=== PATIENT | male | born 1965 | race Caucasian/White ===

== ENCOUNTER 2017-06-09 06:54 | Observation (INO) | payer OTHER, SELFPAY ==
[2017-06-09] VITALS (20 sets, daily range): BP systolic 103–140; BP diastolic 61–83; PULSE 65–101; RESP 16–20; TEMP 36.4–37.5; O2SAT 94–100; BMI 28.8; BMI 32.4
--- NOTE | 2017-06-09 07:03 | XR_ITS ---
XR chest 2V HISTORY: ITS.REASON: PALPITATIONS ORDERING PHYSICIAN: Korey Tao MD PATIENT AGE: 52 years COMPARISON: None available FINDINGS: The cardiomediastinal silhouette and pulmonary vascularity are within normal limits. The lungs are clear without infiltrates, suspicious nodules, or pleural effusions. There is wedging of T9 age-indeterminate. Degenerative changes are present in the thoracic spine.. IMPRESSION: Mild wedging of T9 otherwise negative
--- NOTE | 2017-06-09 07:07 | HMH.EDARPALP ---
ED Disposition Clinical Impression: Chest pain Qualifiers: Chest pain type: other chest pain Qualified Code(s): R07.89 - Other chest pain Pneumonia Qualifiers: Pneumonia type: due to unspecified organism Laterality: bilateral Lung location: lower lobe of lung Qualified Code(s): J18.9 - Pneumonia, unspecified organism Disposition: Admitted As Inpatient Condition on Discharge: Good Time of Disposition: 08:06 - Critical Care Critical Care Time: No Attestation: On , the high probability of a clinically significant, sudden or life threatening deterioration of the following system(s) required my full and direct attention, intervention and personal management. The time I documented below is in addition to time spent performing reported procedures but includes the following listed in this critical care notation. Total Critical Care Time: 45 Vital system(s) involved:: Circulatory Failure My critical care processes included: Assessment & monitoring of V/S, Initial and Re-exams, Data Review/Interpretation, Coordinating Care, Medication Orders and management, Documentation Medical Decision Making - Medical Records Medical records reviewed: Yes: I reviewed the patient's medical records. Vital Signs: 06/09/17 06:58 06/09/17 07:46 06/09/17 10:00 Temperature 99.5 F Temperature Source Oral Pulse Rate [Right Radial] 91 H 85 Respiratory Rate 20 16 Blood Pressure [Right Arm] 123/77 Blood Pressure Mean [Right Arm] 92 Blood Pressure Source [Right Arm] Automatic Cuff Blood Pressure Position [Right Arm] Sitting Supine 02 Sat by Pulse Oximetry 95 97 Oxygen Delivery Method Room Air Room Air - Lab Data Lab results reviewed: Yes: I reviewed the patient's lab results. Lab Results 06/09/17 07:07: WBC 7.1, RBC 5.11, Hgb 14.9, Hct 44.3, MCV 86.7, MCH 29.1, MCHC 33.6, RDW 13.5, Plt Count 167, MPV 8.9, Neut % (Auto) 75.0, Lymph % (Auto) 14.7, [place] % (Auto) 7.8, Eos % (Auto) 2.1, Baso % (Auto) 0.4, Neut # (Auto) 5.4, Lymph # (Auto) 1.1, [place] # (Auto) 0.6, Eos # (Auto) 0.2, Baso # (Auto) 0.0 06/09/17 07:07: Sodium 137, Potassium 4.0, Chloride 103, Carbon Dioxide 24, Anion Gap 14.0, BUN 20 H, Creatinine 1.13, Estimated Creat Clear 94, Estimated GFR 68, Est GFR ( Amer) 83, Glucose 105, Calcium 8.4 L, Total Bilirubin 0.4, AST 33, ALT 69, Alkaline Phosphatase 81, Total Creatine Kinase 201, CK-MB (CK-2) 1.0, CK-MB (CK-2) Rel Index 0.5, Troponin I 0.08 H, Total Protein 7.4, Albumin 3.6, Globulin 3.8 H, Albumin/Globulin Ratio 0.9 L 06/09/17 07:07: D-Dimer 1070 H* 06/09/17 07:07: B-Natriuretic Peptide 9 06/09/17 07:10: Influenza Type A Ag Negative, Influenza Type B Ag Negative Result diagrams: 06/09/17 07:07 06/09/17 07:07 Orders (Tests/Meds): ED MEDICATIONS Generic Name Dose Route Start Last Admin Trade Name Freq PRN Reason Stop Dose Admin Azithromycin 500 mg/ Sodium 250 mls @ 250 mls/hr 06/09/17 09:00 06/09/17 10:59 Chloride IV 06/23/17 08:59 Not Given Q24H MINI Protocol Ceftriaxone Sodium 1 gm/ 50 mls @ 100 mls/hr 06/10/17 09:00 Sodium Chloride IV 06/24/17 08:59 Q24H MINI Ibuprofen 600 mg 06/09/17 13:32 Motrin 600mg Tablet PO 07/09/17 13:31 Q6HP PRN Mild to Moderate Pain Discontinued Medications Generic Name Dose Route Start Last Admin Trade Name Freq PRN Reason Stop Dose Admin Sodium Chloride 500 mls @ 999 mls/hr 06/09/17 08:45 Sod Chlor 0.9% 1000ml Bag IV 06/09/17 09:15 .Q31M MINI Sodium Chloride 1,000 mls @ 999 mls/hr 06/09/17 08:45 06/09/17 08:41 Sod Chlor 0.9% 1000ml Bag IV 06/09/17 09:45 999 mls/hr .Q1H1M MINI Administration Sodium Chloride 1,000 mls @ 999 mls/hr 06/09/17 09:12 06/09/17 10:07 Sod Chlor 0.9% 1000ml Bag IV 06/09/17 09:45 999 mls/hr .Q1H1M MINI Administration Azithromycin 500 mg/ Sodium 250 mls @ 250 mls/hr 06/09/17 09:51 06/09/17 10:50 Chloride IV 06/09/17 09:52 250 mls/hr ONCE ONE Ad
[2017-06-09 07:17] LABS: Basophils % 0.4 % (0.1-2.0); Eosinophils # 0.2 K/mm3 (0.0-0.4); Eosinophils % 2.1 % (0.1-12.0); Hematocrit 44.3 % (42.0-52.0); Hemoglobin 14.9 g/dL (14.1-18.0); Lymphocytes # 1.1 K/mm3 (0.7-4.5); Lymphocytes % 14.7 K/mm3 (10-50); Mean Corpuscular HGB Conc 33.6 g/dL (31.8-35.4); Mean Corpuscular Hemoglobin 29.1 pg (27.0-31.2); Mean Corpuscular Volume 86.7 fl (80-94); Mean Platelet Volume 8.9 fl (7.4-10.4); Monocytes # 0.6 K/mm3 (0.1-1.0); Monocytes % 7.8 % (1.7-9.3); Neutrophils # 5.4 K/mm3 (1.8-7.8); Platelet Count 167 K/mm3 (142-424); Red Blood Count 5.11 M/mm3 (4.60-6.20); Red Cell Distribution Width 13.5 % (11.5-17.5); White Blood Count 7.1 K/mm3 (4.8-10.8)
[2017-06-09 07:39] LABS: Alanine Aminotransferase 69 U/L (12-78); Albumin Level 3.6 gm/dL (3.4-5.0); Albumin/Globulin Ratio 0.9 (1.1-1.8); Alkaline Phosphatase 81 U/L (46-116); Aspartate Amino Transferase 33 U/L (15-37); Bilirubin,Total 0.4 mg/dL (0.2-1.0); Blood Urea Nitrogen 20 mg/dL (7-18); CKMB Relative Index 0.5 U/L (0-4.0); Calcium 8.4 mg/dL (8.5-10.1); Carbon Dioxide 24 mmol/L (21.0-32.0); Chloride 103 mmol/L (98-107); Creatine Kinase 201 U/L (39-308); Creatinine Clearance Estimated 94 mL/min (0-300); Creatinine,Serum 1.13 mg/dL (0.70-1.30); Estimated Glomerular Filt Rate 68 ml/min (>60); GFR (African American) 83 ML/MIN (>60); Globulin 3.8 gm/dl (1.3-3.2); Glucose 105 mg/dL (74-106); Sodium 137 mmol/L (136-145); Total Protein,Serum 7.4 gm/dL (6.4-8.2); Troponin I 0.08 ng/ml (0.00-0.06)
--- NOTE | 2017-06-09 08:08 | CA_ITS ---
PROCEDURE: 2-D M-mode and color Doppler study INDICATIONS FOR THE TEST: Chest pain X COPD Heart Murmur Tobacco SmokingX Palpitations FatigueX Syncope Edema Hypertension Diabetes Mellitus Rheumatic Fever SOB [place] Obesity Hyperlipidemia Family History HDX Additional History PATIENT INFORMATION HEIGHT: 68 WEIGHT:190 GENDER: Male B/P:123/77 2-D/M-MODE INTERPRETATION: 2-D MEASUREMENTS OBSERVED VALUES IN CMS Right Ventricular Dimension (RVDd) 2.6 Interventricular Septum (Thickness)(IVsd) .8 Left Ventricular Internal Dimensions(LVIDd) 5.7 Left Ventricular Posterior Wall (Thickness)(LVPWd) .6 Aortic Root 3.4 Aortic Cusp Separation Left Atrial Dimensions (LAD) 3.0 2D 1. Left atrium is mildly enlarged, left ventricle is normal size, there is preserved left ventricular systolic function, visually estimated ejection fraction 55% with no obvious regional wall motion abnormality. 2. The right atrium and right ventricle are mildly enlarged with normal contractility. 3. The aortic valve is minimally thickened and fibrosed. 4. The mitral and tricuspid valve leaflets are minimally thickened. 5. The pulmonic valve is poorly visualized. 6. No significant pericardial effusion noted. DOPPLER INTERROGATION: Doppler interrogation of the aortic, mitral and tricuspid valvular presence of mild mitral and tricuspid regurgitation, tricuspid and jet velocity is insufficient for calculation of the right ventricular systolic pressure, diastolic parameters are inconclusive. CONCLUSION: 1. Normal left ventricular size, preserved left ventricular systolic function, visually estimated ejection fraction 55% with no signal wall motion abnormality, diastolic parameters are inconclusive. 2. Mildly enlarged right atrium and right ventricle, contractility of the right ventricle is normal. 3. Mild mitral and tricuspid regurgitation 4. No significant pericardial effusion noted.
[2017-06-09 08:33] LABS: D-Dimer 1070 (0-400)
--- NOTE | 2017-06-09 08:57 | CT_ITS ---
CT angio chest HISTORY: Chest tightness with elevated d-dimer and weakness, palpitations ITS.REASON: ELEVATED D-DIMER PALPITATIONS, WEAKNESS ORDERING PHYSICIAN: Jaron Argueta MD PATIENT AGE: 52 years TECHNIQUE: Axial images obtained following the administration of 75 mL of Isovue 370 . Sagittal, and coronal reformatted images are also generated and reviewed. COMPARISON: None FINDINGS: No evidence of pulmonary embolus, aortic aneurysm, or aortic dissection. No mediastinal or hilar mass evident. There are a few small mediastinal lymph nodes are nonspecific. The heart size is unremarkable. No evidence of pericardial effusion. A 3 mm noncalcified nodule present in the central aspect of the right upper lobe and a 4 mm noncalcified nodule present in the right upper lobe laterally. 3 mm noncalcified nodule involves the subpleural region of the right middle lobe. Patchy atelectasis or infiltrate is noted in superior segment of the right lower lobe. A 6 millimeter nodule is present within the right lower lobe adjacent to the major fissure. Dependent changes are present in the lung bases. Patchy area of infiltrate is noted in the left lower lobe laterally. No effusions are evident. There are degenerative changes in the thoracic spine with mild wedging involving T8 which appears chronic. IMPRESSION: 1. No evidence of pulmonary embolus or aortic aneurysm. 2. Patchy areas of atelectasis or infiltrate in the superior segment of the right lower lobe and in the lateral aspect of the left lower lobe. 3. At least 4 pulmonary nodules on the right the largest is 6 mm. Recommend 6 month follow-up to confirm stability
--- NOTE | 2017-06-09 10:11 | PC.NURSE ---
REPORT CALLED TO SERJIO FRANKS RN
[2017-06-09 10:36] LABS: Lactic Acid 0.6 mmol/L (0.4-2.0)
[2017-06-09 11:01] LABS: CKMB Relative Index 0.4 U/L (0-4.0); Creatine Kinase 175 U/L (39-308); Creatine Kinase MB 0.7 mg/ml (0.0-3.6); Troponin I 0.07 ng/ml (0.00-0.06)
--- NOTE | 2017-06-09 12:40 | HMH.CNCARD ---
History of Present Illness Consult date: 06/09/17 Requesting physician: Jaron Argueta Consult reason: chest pain, shortness of breath Chief complaint: SOA, chest ache Additional Medical History:: 1. Tobacco use 2. History of present illness: 52-year-old white male seen in the emergency department for 2 day history of shortness of breath with exertion with some associated chest ache. Symptoms of chest aching would last seconds and seemed to come on with stretching. Shortness of breath was occurring with activity while putting up vinyl siding on building this weekend. Symptoms would resolve with rest. Patient has noted increase in fatigue over the last 2-3 days with increased need for sleep. She denies any history of hypertension, hyperlipidemia or diabetes. There is a family history of heart disease and a sibling in his late 40s early 50s. Patient does have a history of tobacco use. EKG shows poor R-wave progression in the septal leads. Initial troponin is mildly elevated at 0.08. Cardiology consulted for evaluation recommendations. [facility] History Medical History: Denies:: Cancer, Diabetes Mellitus Type 1, Diabetes Mellitus Type 2, MRSA Other Surgeries: Yes: Appendectomy, Other (Gallbladder, plate in head left side) Amputation: No Fractures: No - *Social History Educational Level: Completed High School Smoking Status: Current every day smoker Tobacco Type: cigarettes # Packs/Day (cigarettes): 1 Alcohol Intake: never Alcohol Intake Frequency:: holidays/special occasions only Occupational Status: employed - Psychiatric History Expresses thoughts of harming self/others: None Suicide Plan Description: No Plan *Family Hx:: Heart Attack, Hypertension Meds Home Medications Medication Instructions Recorded Confirmed Type Cyanocobalamin/Folic Acid [B-12 1 each SL DAILY 06/09/17 06/09/17 History 1,000 Mcg Sub Tablet] Multivitamin [Multi-Day Vitamins] 1 each PO DAILY 06/09/17 06/09/17 History [place]-3S/Dha/Epa/Fish Oil/D3 [Fish 1 each PO DAILY 06/09/17 06/09/17 History Oil + D3 Softgel] Allergies Allergy/AdvReac Type Severity Reaction Status Date / Time No Known Allergies Allergy Verified 06/09/17 07:02 Review of Systems - *Cardiovascular Reports chest pain - *Respiratory Reports shortness of breath with activity - *Gastrointestinal Denies abdominal pain - *Musculoskeletal Denies joint pain - *Neurologic Denies seizure-like activity Exam Vital signs and Labs for Last 24 Hours: Temp Pulse Resp BP Pulse Ox 98.2 F 82 18 126/83 97 06/09/17 11:43 06/09/17 11:43 06/09/17 11:43 06/09/17 11:43 06/09/17 11:43 Laboratory Results - last 24 hr 06/09/17 10:05: Lactic Acid 0.6 06/09/17 10:28: Total Creatine Kinase 175, CK-MB (CK-2) 0.7 D, CK-MB (CK-2) Rel Index 0.4, Troponin I 0.07 H I & O for Last 24 hours: Intake & Output 06/07/17 06/08/17 06/09/17 06/10/17 11:59 11:59 11:59 11:59 Intake Total 1000 / 1000 Balance 1000 / 1000 Weight 219 lb 9.286 oz - *Routine Neck Exam Present: supple. Absent: JVD, carotid bruit - *Routine Respiratory Exam Present: CTA bilaterally - *Routine Cardiovascular Exam Present: RRR. Absent: murmur, gallop - *Routine Abdominal Exam Present: soft. Absent: tenderness - *Routine Extremities Exam Absent: edema - *Routine Neurological Exam Present: alert, oriented X3, moving all extremities Assessment and Plan (1) Shortness of breath Current visit: Yes Status: Acute Category: Medical Code(s): R06.02 - Shortness of breath (2) Tobacco use Current visit: Yes Status: Acute Category: Social Hx Code(s): Z72.0 - Tobacco use (3) Abnormal EKG Current visit: Yes Status: Acute Category: Medical Code(s): R94.31 - Abnormal electrocardiogram [ECG] [EKG] (4) Elevated troponin I measurement Current visit: Yes Status: Acute Category: Medical Code(s): R74.8 - Abnormal levels of other
--- NOTE | 2017-06-09 17:21 | HMH.HP ---
*Admission Date: 06/09/17 *Chief complaint: chest pain *History of present illness: this wm with chest pain and seen in the ed -his is a 52-year-old male patient presenting to emergency room with generalized weakness, body aches, chest pressure triggered by exercise and subjective fever over the weekend. Patient describes the chest pressure is triggered by activity, associated with shortness of breath and palpitations. He is a smoker, family history of coronary artery disease. Denies any sore throat, denies any congestion. The chest discomfort does not radiate.pt was seen by [id number] white male seen in the emergency department for 2 day history of shortness of breath with exertion with some associated chest ache. Symptoms of chest aching would last seconds and seemed to come on with stretching. Shortness of breath was occurring with activity while putting up vinyl siding on building this weekend. Symptoms would resolve with rest. Patient has noted increase in fatigue over the last 2-3 days with increased need for sleep. She denies any history of hypertension, hyperlipidemia or diabetes. There is a family history of heart disease and a sibling in his late 40s early 50s. Patient does have a history of tobacco use. EKG shows poor R-wave progression in the septal leads. Initial troponin is mildly elevated at 0.08. Cardiology consulted for evaluation recommendations. [facility] History I have reviewed the patient's past medical history: Yes Medical History: Denies:: Cancer, Diabetes Mellitus Type 1, Diabetes Mellitus Type 2, MRSA Other Surgeries: Yes: Appendectomy, Other (Gallbladder, plate in head left side) Amputation: No Fractures: No - *Social History Educational Level: Completed High School Smoking Status: Current every day smoker Tobacco Type: cigarettes # Packs/Day (cigarettes): 1 Alcohol Intake: never Alcohol Intake Frequency:: holidays/special occasions only Occupational Status: employed - Psychiatric History Expresses thoughts of harming self/others: None Suicide Plan Description: No Plan *Family Hx:: Heart Attack, Hypertension Review of Systems - Review of Systems Review of systems:: pertinent systems reviewed and negative unless documented below - Constitutional Denies fever(s) - Eyes Denies change in vision - ENT Denies facial pain - *Cardiovascular Reports chest pain at rest, Reports chest pain with activity, Reports shortness of breath - *Respiratory Denies cough - *Gastrointestinal Denies abdominal pain - *Genitourinary Denies blood in urine - *Musculoskeletal Denies joint pain - Integumentary/Breasts Denies rash - *Neurologic Denies seizure-like activity, Denies dizziness - Psychiatric Denies anxiety Meds Home Medications Medication Instructions Recorded Confirmed Type Cyanocobalamin/Folic Acid [B-12 1 each SL DAILY 06/09/17 06/09/17 History 1,000 Mcg Sub Tablet] Multivitamin [Multi-Day Vitamins] 1 each PO DAILY 06/09/17 06/09/17 History [place]-3S/Dha/Epa/Fish Oil/D3 [Fish 1 each PO DAILY 06/09/17 06/09/17 History Oil + D3 Softgel] Allergies Allergy/AdvReac Type Severity Reaction Status Date / Time No Known Allergies Allergy Verified 06/09/17 07:02 Exam Vital signs and Labs for Last 24 Hours: Temp Pulse Resp BP Pulse Ox 98.1 F 80 16 124/64 96 06/09/17 14:41 06/09/17 14:41 06/09/17 14:41 06/09/17 14:41 06/09/17 14:41 Laboratory Results - last 24 hr 06/09/17 10:05: Lactic Acid 0.6 06/09/17 10:28: Total Creatine Kinase 175, CK-MB (CK-2) 0.7 D, CK-MB (CK-2) Rel Index 0.4, Troponin I 0.07 H I & O for Last 24 hours: Intake & Output 06/07/17 06/08/17 06/09/17 06/10/17 11:59 11:59 11:59 11:59 Intake Total 1000 / 1000 240 / 240 Balance 1000 / 1000 240 / 240 Weight 219 lb 9.286 oz - Constitutional no acute distress - *Routine HEENT Exam Head: Present: normocephalic Eye: Present: EOMI, PERRL. A
[2017-06-10] VITALS (12 sets, daily range): BP systolic 89–118; BP diastolic 52–71; PULSE 69–105; RESP 16–20; TEMP 36.7–36.8; O2SAT 92–97
--- NOTE | 2017-06-10 | IR_ITS ---
CARDIAC CATHETERIZATION DATE OF CATHETERIZATION:06/10/2017 7:55 AM PROCEDURES: 1. Left heart catheterization 2. Left ventriculogram 3. Selective coronary angiogram INDICATION FOR TEST: 1. Elevated troponin/acute coronary syndrome 2. Risk factors for coronary artery disease Informed consent was obtained prior to the procedure. COMPLICATIONS: None ESTIMATED BLOOD LOSS: Less than 10 ml. TECHNIQUE: One percent lidocaine used to anesthetize the right anterior aspect of the wrist. The right radial artery was accessed via the Seldinger technique. A 6 Bengali sheath was placed in the right radial artery. 2.5 mg of verapamil, 800 mcg of nitroglycerin and 5000 U Heparin were given through the arterial sheath. The trap catheter was also used to perform left heart catheterization and left ventriculography. At the end of the procedure the patient was transferred to the post-op holding area in stable condition for arterial sheath removal. ANGIOGRAPHIC RESULTS: 1. The left main artery normal 2. The left anterior descending artery normal 3. The circumflex artery dominant and normal 4. The right coronary artery small nondominant normal 5. The GROSS ventriculogram reveals normal 65% 6. The left ventricular end-diastolic pressure mildly elevated 20 mmHg IMPRESSION: 1. Normal coronary arteries 2. Normal ejection fraction 3. Mildly elevated LVEDP PLAN: 1. Evaluation noncardiac chest pain 2. Risk factor modification 3. Medical management
--- NOTE | 2017-06-10 02:52 | PC.NURSE ---
Pt has denied pain and SOA this shift. NSR noted on athletic monitor. Lung sounds clear. BS active in all 4 qauds. Pt has rested well with no complaints. VSS. No acute distress noted. Will continue to monitor.
--- NOTE | 2017-06-10 07:27 | PC.NURSE ---
REPORT GIVEN TO Evin OVERTON RN
--- NOTE | 2017-06-10 10:25 | P.CONPHA_ITS ---
[facility] Pharmacy VTE Monitoring - Patient Demographics Admission date: 06/09/17 Report Date: 06/10/17 Time: 10:25 Allergies/Adverse Reactions: Patient Allergies No Known Allergies Allergy (Verified 06/09/17 07:02) Height: 1.75 m Weight: 99.6 kg Patient Problems: Current Active Problems Chest pain (Acute) Pneumonia (Acute) Shortness of breath (Acute) Tobacco use (Acute) Abnormal EKG (Acute) Elevated troponin I measurement (Acute) - VTE Risk Labs: VTE Related Lab Results Hgb 14.9 g/dL (14.1-18.0) 06/09/17 07:07 Hct 44.3 % (42.0-52.0) 06/09/17 07:07 Plt Count 167 K/mm3 (142-424) 06/09/17 07:07 BUN 20 mg/dL (7-18) H 06/09/17 07:07 Creatinine 1.13 mg/dL (0.70-1.30) 06/09/17 07:07 Estimated Creat Clear 94 mL/min (0-300) 06/09/17 07:07 VTE Score: 2 - Prophylaxis VTE Prophylaxis Ordered?: Yes Types of VTE Prophylaxis: TEDS Knee High Location of Applied Device: Bilateral Lower Extremeties - VTE Diagnosis Confirmed Treatment or plan recommended: Continue Current Treatment
--- NOTE | 2017-06-10 14:22 | HMH.DCSUM ---
General - General Admission date: 06/09/17 Discharge date: 06/10/17 HPI HPI: this wm with chest pain and seen in the ed -his is a 52-year-old male patient presenting to emergency room with generalized weakness, body aches, chest pressure triggered by exercise and subjective fever over the weekend. Patient describes the chest pressure is triggered by activity, associated with shortness of breath and palpitations. He is a smoker, family history of coronary artery disease. Denies any sore throat, denies any congestion. The chest discomfort does not radiate.pt was seen by [id number] white male seen in the emergency department for 2 day history of shortness of breath with exertion with some associated chest ache. Symptoms of chest aching would last seconds and seemed to come on with stretching. Shortness of breath was occurring with activity while putting up vinyl siding on building this weekend. Symptoms would resolve with rest. Patient has noted increase in fatigue over the last 2-3 days with increased need for sleep. She denies any history of hypertension, hyperlipidemia or diabetes. There is a family history of heart disease and a sibling in his late 40s early 50s. Patient does have a history of tobacco use. EKG shows poor R-wave progression in the septal leads. Initial troponin is mildly elevated at 0.08. Cardiology consulted for evaluation recommendations. Hospital Course Hospital Course: CTA:IMPRESSION: 1. No evidence of pulmonary embolus or aortic aneurysm. 2. Patchy areas of atelectasis or infiltrate in the superior segment of the right lower lobe and in the lateral aspect of the left lower lobe. 3. At least 4 pulmonary nodules on the right the largest is 6 mm. Recommend 6 month follow-up to confirm stability cath report: ANGIOGRAPHIC RESULTS: 1. The left main artery normal 2. The left anterior descending artery normal 3. The circumflex artery dominant and normal 4. The right coronary artery small nondominant normal 5. The GROSS ventriculogram reveals normal 65% 6. The left ventricular end-diastolic pressure mildly elevated 20 mmHg IMPRESSION: 1. Normal coronary arteries 2. Normal ejection fraction 3. Mildly elevated LVEDP PLAN: 1. Evaluation noncardiac chest pain 2. Risk factor modification 3. Medical management pt will follow up in office next week. Objective Vital signs: Temp Pulse Resp BP Pulse Ox 98.1 F 69 20 102/64 96 06/10/17 10:00 06/10/17 10:00 06/10/17 10:00 06/10/17 10:00 06/10/17 10:00 no acute distress - *Routine HEENT Exam Head: Present: normocephalic Eye: Present: PERRL ENT: Present: mucous membranes moist - *Routine Neck Exam Present: full ROM - *Routine Respiratory Exam Present: CTA bilaterally - *Routine Cardiovascular Exam Present: RRR - *Routine Abdominal Exam Present: soft, normoactive bowel sounds - *Routine Extremities Exam Present: full ROM Comments: pressure device to rt wrist - *Routine Neurological Exam Present: alert, oriented X3, CN II-XII intact - Routine Psychiatric Exam Present: normal affect, normal thought process Discharge Plan - Patient Discharge Instructions ACTIVITY: Continue current activity DIET: continue same diet Patient Instructions: How to Quit Smoking, Smoking Cessation Associated with Decreases Risk of Complications After Prakash - Follow up Plan Follow up with: Felipe Puga MD [Staff Physician] - 1 week Disposition: Home, Self-Usp Medications: Home Medications Medication Instructions Recorded Confirmed Type Cyanocobalamin/Folic Acid [B-12 1 each PO DAILY 06/09/17 06/10/17 History 1,000 Mcg Sub Tablet] Multivitamin [Multi-Day Vitamins] 1 each PO DAILY 06/09/17 06/09/17 History [place]-3S/Dha/Epa/Fish Oil/D3 [Fish 1 each PO DAILY 06/09/17 06/09/17 History Oil + D3 Softgel] Prescriptions/Medication Reconciliation: Continue [place]-3S/Dha/Epa
--- NOTE | 2017-06-10 14:57 | P.PCN_ITS ---
[facility] Pacemaker - Pacemaker Placement Complications:: None Technique:: 1% Lidocaine with epinephrine used to anesthetize the left anterior aspect of the chest.Scalpel was used to make the initial cutaneous incision while electrocautery was used to dissect down into the fascia. The fascia was lifted off the pectoralis muscle and digitally manipulated creating a pocket for the pacemaker. The patient was then placed in Trendelenburg position and the subclavian vein was accessed via the Selinger technique. A 7 Burkinan sheath was placed under fluoroscopic guidance into the subclavian vein. Following this, an additional wire was placed into the sheath. Now, with two wires inside the 7 Burkinan sheath, this sheath was removed, maintaining the two wires in the subclavian vein. The sheath and dilator was then placed over one of the wires while keeping the other wire in place within the subclavian vein. The dilator was removed from the sheath. Using fluoroscopic guidance, the ventricular lead was placed into the right ventricular apex, screwed and secured into place. Electronic interrogation proved acceptable thresholds and voltage within the lead. Using 3-0 silk, the ventricular lead was then secured into place. Lead was secured to the fascia using the 3-0 silk. Following this, the sheath was pealed away. An additional 7 Burkinan fresh sheath and dilator was placed over the existing wire. Using fluoroscopic guidance, the atrial lead was then placed into the right atrial appendage and screwed and secured in place. Electrical interrogation demonstrated acceptable thresholds and voltage numbers. The atrial lead was then secured into place using 3-0 silk and then the lead was finally secured to the fascia. With both the atria and ventricular leads in place with acceptable thresholds and sensitivity, the atrial and ventricular leads were placed into the pacemaker generator. Pacemaker generator was then secured to the fascia using 3-0 silk. 1 gram of Ancef was used to flush the pocket. Following the pacemaker being secured to the fascia and in place, Monocryl was used to close the subcutaneous layers while mary ann were used to close the cutaneous layer. A pressure dressing was placed and the patient was transferred to the postop holding area in stable condition for postoperative care.
--- NOTE | 2017-06-19 09:47 | P.CONS_ITS ---
History of Present Illness Consult date: 06/09/17 Requesting physician: Jaron Argueta Consult reason: chest pain, shortness of breath Chief complaint: SOA, chest ache Additional Medical History:: 1. Tobacco use 2. History of present illness: 52-year-old white male seen in the emergency department for 2 day history of shortness of breath with exertion with some associated chest ache. Symptoms of chest aching would last seconds and seemed to come on with stretching. Shortness of breath was occurring with activity while putting up vinyl siding on building this weekend. Symptoms would resolve with rest. Patient has noted increase in fatigue over the last 2-3 days with increased need for sleep. She denies any history of hypertension, hyperlipidemia or diabetes. There is a family history of heart disease and a sibling in his late 40s early 50s. Patient does have a history of tobacco use. EKG shows poor R-wave progression in the septal leads. Initial troponin is mildly elevated at 0.08. Cardiology consulted for evaluation recommendations. [facility] History Medical History: Denies:: Cancer, Diabetes Mellitus Type 1, Diabetes Mellitus Type 2, MRSA Other Surgeries: Yes: Appendectomy, Other (Gallbladder, plate in head left side) Amputation: No Fractures: No - *Social History Educational Level: Completed High School Smoking Status: Current every day smoker Tobacco Type: cigarettes # Packs/Day (cigarettes): 1 Alcohol Intake: never Alcohol Intake Frequency:: holidays/special occasions only Occupational Status: employed - Psychiatric History Expresses thoughts of harming self/others: None Suicide Plan Description: No Plan *Family Hx:: Heart Attack, Hypertension Meds Home Medications Medication Instructions Recorded Confirmed Type Cyanocobalamin/Folic Acid [B-12 1 each SL DAILY 06/09/17 06/09/17 History 1,000 Mcg Sub Tablet] Multivitamin [Multi-Day Vitamins] 1 each PO DAILY 06/09/17 06/09/17 History [place]-3S/Dha/Epa/Fish Oil/D3 [Fish 1 each PO DAILY 06/09/17 06/09/17 History Oil + D3 Softgel] Allergies Allergy/AdvReac Type Severity Reaction Status Date / Time No Known Allergies Allergy Verified 06/09/17 07:02 Review of Systems - *Cardiovascular Reports chest pain - *Respiratory Reports shortness of breath with activity - *Gastrointestinal Denies abdominal pain - *Musculoskeletal Denies joint pain - *Neurologic Denies seizure-like activity Exam Vital signs and Labs for Last 24 Hours: Temp Pulse Resp BP Pulse Ox 98.2 F 82 18 126/83 97 06/09/17 11:43 06/09/17 11:43 06/09/17 11:43 06/09/17 11:43 06/09/17 11:43 Laboratory Results - last 24 hr 06/09/17 10:05: Lactic Acid 0.6 06/09/17 10:28: Total Creatine Kinase 175, CK-MB (CK-2) 0.7 D, CK-MB (CK-2) Rel Index 0.4, Troponin I 0.07 H I & O for Last 24 hours: Intake & Output 06/07/17 06/08/17 06/09/17 06/10/17 11:59 11:59 11:59 11:59 Intake Total 1000 / 1000 Balance 1000 / 1000 Weight 219 lb 9.286 oz - *Routine Neck Exam Present: supple. Absent: JVD, carotid bruit - *Routine Respiratory Exam Present: CTA bilaterally - *Routine Cardiovascular Exam Present: RRR. Absent: murmur, gallop - *Routine Abdominal Exam Present: soft. Absent: tenderness - *Routine Extremities Exam Abse
== END 2017-06-10 15:15 | disposition home or self-care (01) ==
LOC: 2ND 10:51 → ER 10:51
PROVIDERS: Internal Medicine; Admitting Provider Emergency Medicine; Emergency Provider Emergency Medicine; Family Provider Physician Assistant; PCP Physician Assistant; Visit Provider Emergency Medicine
DX: R07.9 Chest pain, unspecified (principal); Z72.0 Tobacco use; R06.09 Other forms of dyspnea; Z82.49 Family history of ischemic heart disease and other diseases of the circulatory system; J18.9 Pneumonia, unspecified organism
CPT/HCPCS: 36415; 71046; 71275; 80053; 82550; 82553; 83605; 83880; 84484; 85025; 85378; 87040; 87275; 87276; 93005; 93306; 93458; 96365; 99152; 99284; C1725; C1769; G0378; J0456; J1644; Q9967

== ENCOUNTER → 2017-07-07 14:42 | Outpatient (CLI) | payer OTHER, SELFPAY ==
--- NOTE | 2017-07-07 14:46 | CT_ITS ---
CT chest wo con COMPARISON: CT angiogram of chest 06/09/2017 HISTORY: Possible pulmonary nodules TECHNIQUE: Multiaxial scans obtained from thoracic inlet the hemidiaphragms and were performed without IV contrast. Sagittal coronal reformats were evaluated as well. FINDINGS: There is a tiny 2 to 3 mm noncalcified nodule subpleural location anterior segment right upper lobe. There is a 5 to 6 mm noncalcified nodule right lower lobe adjacent to the major fissure. There is a calcified granuloma right lower lobe. The previously noted areas of infiltrate or atelectasis and resolved though there is minimal passive congestion remaining in right posterior gutter. There is no pleural fluid. Cardiac size is normal and is no abnormal superior mediastinal or hilar lymphadenopathy. IMPRESSION: Stable tiny noncalcified pulmonary nodules, likely evolving granulomas. Suggest a follow-up CT scan chest noncontrast in 6 months to evaluate for interval stability or change
== END ==
PROVIDERS: Family Provider Physician Assistant; PCP Emergency Medicine; Visit Provider Emergency Medicine
DX: R91.1 Solitary pulmonary nodule (principal)
CPT/HCPCS: 71250

== ENCOUNTER → 2017-09-29 14:30 | Outpatient (CLI) | payer OTHER, SELFPAY ==
--- NOTE | 2017-09-29 14:33 | XR_ITS ---
XR chest 2V HISTORY: ITS.REASON: cough ORDERING PHYSICIAN: Tamiko Acevedo PATIENT AGE: 52 years COMPARISON: PA and lateral chest 06/09/2017 FINDINGS: The cardiomediastinal silhouette and pulmonary vascularity are within normal limits. The lungs are clear without infiltrates, suspicious nodules, or pleural effusions. No acute bony abnormalities. There are mild degenerative changes mid thoracic spine. IMPRESSION: Negative chest, no acute finding
== END ==
PROVIDERS: Visit Provider Nurse Practitioner Family
DX: R05 Cough (principal)
CPT/HCPCS: 71046

== ENCOUNTER → 2018-01-26 12:08 | Outpatient (CLI) | payer OTHER, SELFPAY ==
--- NOTE | 2018-01-26 12:12 | XR_ITS ---
XR chest 2V HISTORY: Chest congestion, smoker ITS.REASON: cough ORDERING PHYSICIAN: Tamiko Acevedo PATIENT AGE: 53 years COMPARISON: 09/29/2018 FINDINGS: The cardiomediastinal silhouette and pulmonary vascularity are within normal limits. The lungs are clear without infiltrates, suspicious nodules, or pleural effusions. No acute bony abnormalities. There are mild degenerative changes in the thoracic spine with mild wedging T7 which appears chronic. IMPRESSION: No acute finding
== END ==
PROVIDERS: PCP Nurse Practitioner Family; Visit Provider Nurse Practitioner Family
DX: R05 Cough (principal)
CPT/HCPCS: 71046

== ENCOUNTER 2018-03-20 13:44 | Outpatient (CLI) | payer SELFPAY | END 2018-03-20 14:49 | disposition home or self-care (01) | PROVIDERS: Visit Provider Nurse Practitioner Family | DX: Z02.4 Encounter for examination for driving license (principal) ==

== ENCOUNTER → 2018-06-05 08:21 | Outpatient (CLI) | payer OTHER, SELFPAY ==
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
== END ==
PROVIDERS: PCP Emergency Medicine; Visit Provider Nurse Practitioner Family
DX: M54.5 Low back pain (principal)
CPT/HCPCS: 72148; 76376

== ENCOUNTER 2018-08-13 08:00 | Outpatient (RCR) | payer OTHER, SELFPAY | END 2018-08-13 08:05 | disposition home or self-care (01) | LOC: PT 08:00 | PROVIDERS: Visit Provider Orthopaedic Surgery Adult Reconstructive Orthopaedic Surgery | DX: M54.5 Low back pain (principal) | CPT/HCPCS: 97010; 97012; 97014; 97035; 97110; 97163; G0283 ==

== ENCOUNTER → 2019-02-08 17:07 | Outpatient (CLI) | payer OTHER, SELFPAY ==
[2019-02-08 17:54] LABS: Basophils % 0.6 % (0.1-2.0); Eosinophils # 0.2 K/mm3 (0.0-0.4); Eosinophils % 2.5 % (0.1-12.0); Hematocrit 45.7 % (42.0-52.0); Lymphocytes # 1.6 K/mm3 (0.7-4.5); Lymphocytes % 23.7 % (10-50); Mean Corpuscular HGB Conc 32.8 g/dL (31.8-35.4); Mean Corpuscular Hemoglobin 30.1 pg (27.0-31.2); Mean Corpuscular Volume 91.8 fl (80-94); Mean Platelet Volume 10.5 fl (7.4-10.4); Monocytes # 0.4 K/mm3 (0.1-1.0); Monocytes % 6.5 % (1.7-9.3); Neutrophils # 4.5 K/mm3 (1.8-7.8); Neutrophils % 66.7 % (37.0-80.0); Platelet Count 185 K/mm3 (142-424); Red Blood Count 4.98 M/mm3 (4.60-6.20); Red Cell Distribution Width 13.5 % (11.5-17.5); White Blood Count 6.8 K/mm3 (4.8-10.8)
[2019-02-08 18:13] LABS: Alanine Aminotransferase 50 U/L (12-78); Albumin Level 3.9 gm/dL (3.4-5.0); Albumin/Globulin Ratio 1.1 (1.1-1.8); Alkaline Phosphatase 62 U/L (46-116); Anion Gap 17.1 mEq/L (5-15); Aspartate Amino Transferase 22 U/L (15-37); Bilirubin,Total 0.3 mg/dL (0.2-1.0); Blood Urea Nitrogen 18 mg/dL (7-18); Calcium 9.1 mg/dL (8.5-10.1); Carbon Dioxide 24 mmol/L (21.0-32.0); Chloride 104 mmol/L (98-107); Chol/HDL Ratio 5.9 (1-3.5); Cholesterol 207 mg/dL (140-200); Creatinine,Serum 1.32 mg/dL (0.70-1.30); Estimated Glomerular Filt Rate 57 ml/min (>60); GFR (African American) 69 ML/MIN (>60); Globulin 3.4 gm/dl (1.3-3.2); Glucose 133 mg/dL (74-106); HDL Cholesterol 35 mg/dL (27-67); LDL Cholesterol 93 mg/dL (0-130); Potassium 4.1 mmoL/L (3.5-5.1); Sodium 141 mmol/L (136-145); T4 (Thyroxine) 6.9 ug/dl (4.7-13.3); Thyroid Stimulating Hormone 2.83 uIU/ml (0.358-3.740); Total Protein,Serum 7.3 gm/dL (6.4-8.2); Triglycerides 393 mg/dL (30-200); VLDL Cholesterol 79 mg/dL (0-40)
[2019-02-10 08:06] LABS: Vitamin D 25 Hydroxy 28.1 ng/mL (30.0-100.0)
== END ==
PROVIDERS: Visit Provider Nurse Practitioner Family
DX: Z00.00 Encounter for general adult medical examination without abnormal findings (principal); E55.9 Vitamin D deficiency, unspecified
CPT/HCPCS: 80053; 80061; 82652; 84436; 84443; 85025

== ENCOUNTER → 2019-02-17 07:27 | Outpatient (CLI) | payer OTHER, SELFPAY ==
[2019-02-17 09:05] LABS: Anion Gap 11.9 mEq/L (5-15); Blood Urea Nitrogen 20 mg/dL (7-18); Calcium 8.9 mg/dL (8.5-10.1); Carbon Dioxide 29 mmol/L (21.0-32.0); Chloride 102 mmol/L (98-107); Creatinine,Serum 1.08 mg/dL (0.70-1.30); Estimated Glomerular Filt Rate 72 ml/min (>60); GFR (African American) 87 ML/MIN (>60); Glucose 101 mg/dL (74-106); Potassium 3.9 mmoL/L (3.5-5.1); Sodium 139 mmol/L (136-145)
== END ==
PROVIDERS: Visit Provider Nurse Practitioner Family
DX: R79.89 Other specified abnormal findings of blood chemistry (principal)
CPT/HCPCS: 36415; 80048

== ENCOUNTER → 2019-08-25 11:24 | Outpatient (CLI) | payer BC, SELFPAY ==
--- NOTE | 2019-08-25 11:30 | XR_ITS ---
PROCEDURE: XR FOOT RT MIN 3V CLINICAL INDICATION: right foot pain and swelling Right foot pain and swelling COMPARISON: No exams were available for comparison FINDINGS: There are mild osteoarthritic changes at the 1st MTP joint, 1st metatarsal tarsal joint. No fracture or dislocation. There is an os trigonum present. There is minimal hyperostosis along the neck of the talus anteriorly. Other findings:None. IMPRESSION: Degenerative changes, no acute finding Dictated by: Ed Schuster MD 08/25/2019 12:48 Electronically signed by Ed Schuster MD in [place] 08/25/2019 12:48
== END ==
PROVIDERS: PCP Physician Assistant; Visit Provider Physician Assistant
DX: M79.89 Other specified soft tissue disorders (principal); M79.671 Pain in right foot
CPT/HCPCS: 73630

== ENCOUNTER → 2020-05-26 16:53 | Outpatient (CLI) | payer BC, SELFPAY ==
[2020-05-26 17:33] LABS: Basophils % 0.3 % (0.1-2.0); Eosinophils # 0.1 K/mm3 (0.0-0.4); Eosinophils % 2.1 % (0.1-12.0); Hematocrit 46.5 % (42.0-52.0); Hemoglobin 15.4 g/dL (14.1-18.0); Lymphocytes # 1.4 K/mm3 (0.7-4.5); Lymphocytes % 25.1 % (10-50); Mean Corpuscular HGB Conc 33.2 g/dL (31.8-35.4); Mean Corpuscular Volume 87.2 fl (80-94); Mean Platelet Volume 9.6 fl (7.4-10.4); Monocytes # 0.3 K/mm3 (0.1-1.0); Monocytes % 5.1 % (1.7-9.3); Neutrophils # 3.8 K/mm3 (1.8-7.8); Neutrophils % 67.4 % (37.0-80.0); Platelet Count 170 K/mm3 (142-424); Red Blood Count 5.33 M/mm3 (4.60-6.20); Red Cell Distribution Width 13.6 % (11.5-17.5); White Blood Count 5.7 K/mm3 (4.8-10.8)
[2020-05-26 18:16] LABS: Chloride 108 mmol/L (98-107); Potassium 4.2 mmoL/L (3.5-5.1); Sodium 141 mmol/L (136-145)
[2020-05-26 18:18] LABS: Blood Urea Nitrogen 19 mg/dl (9-20); Estimated Glomerular Filt Rate 63 ml/min (>60); GFR (African American) 76 ML/MIN (>60)
[2020-05-26 18:19] LABS: Alanine Aminotransferase 41 U/L (12-78); Albumin Level 4.5 g/dl (3.5-5.0); Albumin/Globulin Ratio 1.4 (1.1-1.8); Alkaline Phosphatase 67 U/L (38-126); Anion Gap 11.2 mEq/L (5-15); Aspartate Amino Transferase 30 U/L (17-59); Bilirubin,Total 0.5 mg/dl (0.2-1.3); Calcium 9.9 mg/dl (8.4-10.2); Carbon Dioxide 26 mmol/L (22.0-30.0); Cholesterol 240 mg/dl (140-200); Globulin 3.2 g/dL (1.3-3.2); Glucose 124 mg/dl (74-100); Total Protein,Serum 7.7 g/dl (6.3-8.2); Triglycerides 326 mg/dl (30-150); VLDL Cholesterol 65 mg/dL (0-40)
[2020-05-26 18:20] LABS: Chol/HDL Ratio 6.3 (1-3.5); HDL Cholesterol 38 mg/dl (40-60)
[2020-05-26 18:31] LABS: Direct LDL Cholesterol 114.89 mg/dL (100-129)
[2020-05-26 18:36] LABS: 25-OH Vitamin D, Total 36.2 ng/mL (30-100)
[2020-05-26 18:37] LABS: Free T4 (Free Thyroxine) 0.74 ng/dl (0.78-2.19)
[2020-05-26 18:50] LABS: Prostate Specific Ag Screen 0.4 ng/ml (0.0-4.0)
[2020-05-26 18:51] LABS: Thyroid Stimulating Hormone 2.47 uIU/mL (0.465-4.68)
== END ==
LOC: LAB.DROPOF 16:53
PROVIDERS: Visit Provider Emergency Medicine
DX: R53.83 Other fatigue (principal); E55.9 Vitamin D deficiency, unspecified; Z12.5 Encounter for screening for malignant neoplasm of prostate; Z79.899 Other long term (current) drug therapy
CPT/HCPCS: 80053; 80061; 82306; 84439; 84443; 85025; G0103

== ENCOUNTER 2020-05-28 20:45 | Observation (INO) | payer BC, SELFPAY ==
[2020-05-28 20:46] VITALS: BP 149/100; PULSE 86; RESP 18; TEMP 36.4; O2SAT 96; BMI 31.0
--- NOTE | 2020-05-28 20:57 | XR_ITS ---
PROCEDURE: XR CHEST 2V CLINICAL HISTORY: chest pain COMPARISON: CT CHESTWO CT chest wo con from 07/07/2017 CR CXR2V XR chest 2V from 09/29/2017 DX CXR2V XR chest 2V from 01/26/2018 CR CXR2V XR chest 2V from 03/29/2018 FINDINGS: This is a somewhat poor inspiration. There is a patchy ill-defined pneumonic infiltrate in the right perihilar region and posterior basilar segment right lower lobe. The right upper lung field is clear. There may be minimal pneumonic involvement in the left lower lobe.. Cardiac size is normal and there is no vascular congestion and there is no pleural fluid. IMPRESSION: Right lower lobe and questionable left lower lobe bronchopneumonia Dictated by: Dr. Korey Randall MD 05/28/2020 22:04 Dr. Korey Randall MD in [place] 05/28/2020 22:04
--- NOTE | 2020-05-28 20:57 | ECG_ITS ---
APPROVED REPORT Exam: Resting ECG HR:82 bpm ECG Measurements Heart Rate 82 AXES NC 158 P 42 QRSd 84 QRS 43 QT 376 T 38 QTc 439 Conclusion Normal sinus rhythm Septal infarct, age undetermined Abnormal ECG Electronically signed by : Ehsan Tomlinson, 05/29/2020 06:43:15
--- NOTE | 2020-05-28 20:58 | HMH.EDCP ---
ED Disposition Clinical Impression: Unstable angina pectoris, Obesity (BMI 30.0-34.9), Tobacco use Disposition: Admitted as Observation Condition on Discharge: Fair Referrals: Jaron Argueta MD [Primary Care Provider] - - Critical Care Critical Care Time: No Attestation: On 05/28/20, the high probability of a clinically significant, sudden or life threatening deterioration of the following system(s) required my full and direct attention, intervention and personal management. The time I documented below is in addition to time spent performing reported procedures but includes the following listed in this critical care notation. Medical Decision Making - Medical Records Medical records reviewed: Yes: I reviewed the patient's medical records. - James Inquiry Pt receiving controlled substance: No Vital Signs: 05/28/20 20:46 05/28/20 21:00 05/28/20 21:30 Temperature 97.6 F Temperature Source Oral Pulse Rate [Right] 86 81 82 Respiratory Rate 18 17 17 Blood Pressure [Right Arm] 149/100 H 147/101 H 133/94 H Blood Pressure Mean [Right Arm] 116 116 107 Blood Pressure Source [Right Arm] Automatic Cuff Automatic Cuff Automatic Cuff Blood Pressure Position [Right Arm] Supine Supine Supine 02 Sat by Pulse Oximetry 96 95 93 L Oxygen Delivery Method Room Air Room Air Room Air - Lab Data Lab results reviewed: Yes: I reviewed the patient's lab results. Lab Results 05/28/20 20:45: WBC 9.3 D, RBC 5.14, Hgb 15.5, Hct 44.6, MCV 86.8, MCH 30.1, MCHC 34.7, RDW 13.6, Plt Count 175, MPV 9.4, Neut % (Auto) 63.4, Lymph % (Auto) 27.3, [place] % (Auto) 6.1, Eos % (Auto) 2.7, Baso % (Auto) 0.4, Neut # (Auto) 5.9, Lymph # (Auto) 2.6, [place] # (Auto) 0.6, Eos # (Auto) 0.3, Baso # (Auto) 0.0, ESR 13 05/28/20 20:45: Sodium 139, Potassium 4.2, Chloride 106, Carbon Dioxide 29, Anion Gap 8.2, BUN 23 H, Creatinine 1.20, Estimated Creat Clear 95, Estimated GFR 63, Est GFR ( Amer) 76, Glucose 103 H, Calcium 9.6, Total Bilirubin 0.5, Direct Bilirubin 0.2, Conjugated Bilirubin 0.0, Indirect Bilirubin 0.3, Unconjugated Bilirubin 0.3, AST 38 D, ALT 48, Alkaline Phosphatase 68, Troponin I < 0.01, C-Reactive Protein 1.2, Total Protein 8.1, Albumin 4.5, Procalcitonin 0.060 Result diagrams: 05/28/20 20:45 05/28/20 20:45 Orders (Tests/Meds): ED MEDICATIONS Generic Name Dose Route Start Last Admin Trade Name Freq PRN Reason Stop Dose Admin Sodium Chloride 1,000 mls @ 999 mls/hr 05/28/20 21:00 05/28/20 21:02 Sod Chlor 0.9% 1000ml Bag IV 05/28/20 22:00 999 mls/hr .Q1H1M MINI Administration Discontinued Medications Generic Name Dose Route Start Last Admin Trade Name Freq PRN Reason Stop Dose Admin Aspirin 324 mg 05/28/20 20:57 05/28/20 21:03 Aspirin 81mg Chewable Tablet PO 05/28/20 20:58 324 mg ONCE ONE Administration Nitroglycerin 1 gm 05/28/20 20:57 05/28/20 21:03 Nitroglycerin 1 Gm Ointment TD 05/28/20 20:58 1 gm ONCE ONE Administration ORDERS Category Date Time Status XR chest 2V Stat Exams 05/28/20 20:57 Taken Covid-19 Nasal PCR ([facility]) Routine Lab 05/28/20 20:50 Received Troponin I Q3H Lab 05/28/20 23:59 Ordered Troponin I Q3H Lab 05/29/20 02:59 Ordered - Radiology Data #1 Image(s): Chest Image Reviewed: Yes I reviewed the patient's radiology image Preliminary Findings: Normal/NAD - ECG Data Tracing #1 Normal Sinus Rhythm: Yes Ischemic changes: non-specific ST-T wave changes - Reevaluation(s) Time: 21:54 Reevaluation #1: stable Medical Decision Narrative: pt with what sds like angina and has sig risk factors Chest Pain HPI - General Chief Complaint: Chest Pain Stated Complaint: Chest Pain Time Seen by Provider: 05/28/20 20:58 Mode of Arrival: Ambulatory Source of Information: Patient, Medical Record Limitations: No Limitations Description of Symptoms (Recalled from ER Triage Doc. by RN): Pt states he has been having chest pain since friday
[2020-05-28 21:00] VITALS: BP 147/101; PULSE 81; RESP 17; O2SAT 95
[2020-05-28 21:06] LABS: Basophils % 0.4 % (0.1-2.0); Eosinophils # 0.3 K/mm3 (0.0-0.4); Eosinophils % 2.7 % (0.1-12.0); Hematocrit 44.6 % (42.0-52.0); Hemoglobin 15.5 g/dL (14.1-18.0); Lymphocytes # 2.6 K/mm3 (0.7-4.5); Lymphocytes % 27.3 % (10-50); Mean Corpuscular HGB Conc 34.7 g/dL (31.8-35.4); Mean Corpuscular Hemoglobin 30.1 pg (27.0-31.2); Mean Corpuscular Volume 86.8 fl (80-94); Mean Platelet Volume 9.4 fl (7.4-10.4); Monocytes # 0.6 K/mm3 (0.1-1.0); Monocytes % 6.1 % (1.7-9.3); Neutrophils # 5.9 K/mm3 (1.8-7.8); Neutrophils % 63.4 % (37.0-80.0); Platelet Count 175 K/mm3 (142-424); Red Blood Count 5.14 M/mm3 (4.60-6.20); Red Cell Distribution Width 13.6 % (11.5-17.5); White Blood Count 9.3 K/mm3 (4.8-10.8)
[2020-05-28 21:09] LABS: Chloride 106 mmol/L (98-107); Sodium 139 mmol/L (136-145)
[2020-05-28 21:11] LABS: Blood Urea Nitrogen 23 mg/dl (9-20); Creatinine Clearance Estimated 95 mL/min (50-200); Estimated Glomerular Filt Rate 63 ml/min (>60); GFR (African American) 76 ML/MIN (>60)
[2020-05-28 21:12] LABS: Alanine Aminotransferase 48 U/L (12-78); Albumin Level 4.5 g/dl (3.5-5.0); Alkaline Phosphatase 68 U/L (38-126); Anion Gap 8.2 mEq/L (5-15); Aspartate Amino Transferase 38 U/L (17-59); Bilirubin,Direct 0.2 mg/dl (0.0-0.4); Bilirubin,Indirect 0.3 mg/dL (0.0-0.9); Bilirubin,Total 0.5 mg/dl (0.2-1.3); Bilirubin,Unconjugated 0.3 mg/dL (0.0-1.1); Calcium 9.6 mg/dl (8.4-10.2); Carbon Dioxide 29 mmol/L (22.0-30.0); Glucose 103 mg/dl (74-100); Potassium 4.2 mmoL/L (3.5-5.1); Total Protein,Serum 8.1 g/dl (6.3-8.2)
[2020-05-28 21:18] LABS: C-Reactive Protein 1.2 mg/L (0-4)
[2020-05-28 21:30] VITALS: BP 133/94; PULSE 82; RESP 17; O2SAT 93
[2020-05-28 21:39] LABS: Troponin I < 0.01 ng/ml (0.00-0.034)
[2020-05-28 21:40] LABS: Erythrocyte Sedimentation Rate 13 mm/hr (0-20)
[2020-05-28 23:13] VITALS: BP 106/67; PULSE 94; RESP 16; TEMP 36.4; O2SAT 95
--- NOTE | 2020-05-28 23:23 | PC.NURSE ---
patient up to floor via wheelchair.
[2020-05-28 23:42] VITALS: BP 123/73; PULSE 94; RESP 16; TEMP 36.4; O2SAT 94; BMI 32.5
[2020-05-29] VITALS (16 sets, daily range): BP systolic 115–179; BP diastolic 69–115; PULSE 60–93; RESP 15–18; TEMP 36.5–36.7; O2SAT 95–100; BMI 32.5
--- NOTE | 2020-05-29 | IR_ITS ---
APPROVED REPORT Patient Location: Inpatient Library Aide: ERMELINDA Michaud RT (R) PROCEDURES Left heart catheterization Left ventriculogram Selective coronary angiogram Drug-eluting stent deployment to the proximal LAD INDICATION Unstable angina, Coronary artery disease, Informed consent was obtained prior to the procedure. COMPLICATIONS None Estimated Blood Loss: Less than 10 ML TECHNIQUE One percent lidocaine used to anesthetize the right anterior aspect of the wrist. The right radial artery was accessed via the Seldinger technique. A 6 Bulgarian sheath was placed in the right radial artery. 2.5 mg of verapamil, 800 mcg of nitroglycerin, 1mg Lidocaine and 5000 U Heparin were given through the arterial sheath. The trap catheter was also used to perform left heart catheterization, left ventriculogram and selective coronary angiogram. At the end of the diagnostic angiogram therapeutic heparin was administered giving a therapeutic ACT. A JL 3.5 guide catheter was placed in the left main artery and a Choice PT wire was placed distally in the LAD. A 3.5 x 23 mm Xience stent was deployed at 18 suzette reducing the severe proximal stenosis to 0%. ZAHEER III flow was present before and after the procedure. At the end of the procedure the apparatus was removed the sheath was removed and hemostasis was achieved using TR banding patient was transferred to the postop putting in stable condition ANGIOGRAPHIC RESULTS The left main artery Normal The left anterior descending artery Has a proximal concentric 70 to 80% stenosis followed by a distal 30% stenosis The circumflex artery Large dominant normal The right coronary artery Vestigial normal The GROSS ventriculogram reveals Normal 65% The left ventricular end-diastolic pressure Elevated at 30 mmHg IMPRESSION Severe proximal LAD disease Successful stenting of the proximal LAD severe disease reduced to 0% with 1 drug-eluting stent Normal ejection fraction Moderate to severely elevated LVEDP consistent with diastolic dysfunction PLAN 1. Brilinta and aspirin 2. LDL less than 55 3. Treatment of diastolic dysfunction with low-dose diuretics 4. Cardiac rehabilitation 5. Avoidance of tobacco products 6. Aggressive risk factor modification Electronically signed by : Felipe Puga, 05/29/2020 14:04:41
[2020-05-29 00:37] LABS: Troponin I < 0.01 ng/ml (0.00-0.034)
[2020-05-29 03:16] LABS: Chol/HDL Ratio 7.3 (1-3.5); Cholesterol 198 mg/dl (140-200); HDL Cholesterol 27 mg/dl (40-60)
[2020-05-29 03:28] LABS: Direct LDL Cholesterol 77.91 mg/dL (100-129)
[2020-05-29 03:50] LABS: Triglycerides 418 mg/dl (30-150); Troponin I < 0.01 ng/ml (0.00-0.034)
--- NOTE | 2020-05-29 08:00 | CA_ITS ---
APPROVED REPORT EXAM: Comprehensive 2D, Doppler, and color-flow Echocardiogram Tram Inspector: Vanessa Yadav RCS, RVS Ht: 5 ft 9 in Wt: 219lbs BSA: 2.15 BP: 133/94 mmHg Indications: cp,htn,smoker 2D Dimensions IVSd 0.99 cm M: 0.6-1.2 LVEF (Visual) 57.90 % PWd 0.96 cm M: 0.6 - 1.2 LA Volume 76.90 mL LVDd 4.63 cm M: 4.2 - 5.9 LA Volume Index 35.93 mL/m2 (M/F) 16-34 LVDs 3.22 cm M: 2.5 - 4.0 Aortic Root 3.20 cm M: 3.1 - 3.7 Left Atrium 3.92 cm M: 3.0 - 4.0 LVOT 2.06 cm (M/F) 1.5-2.5 M-Mode Dimensions LA Diam 4.30 cm (1.9-4.0) Ao Diam 3.44 cm (2.0-3.7) EPSs 0.18 cm TAPSE 1.87 (<1.7) LV Diastology E Decel Time 267.00 (160-240 msec) E/A Ratio 1.28 MED E' 8.30 (< 7 cm/sec) MED A' 11.20 cm/s E'/MED E' Ratio 7.88 (>14) LAT E' 13.90 (<10 cm/sec) LAT A' 12.10 cm/s E/LAT E' Ratio 4.71 (>14) Aortic Valve AO Peak GR. 4.20 mmHg Mitral Valve MV A Velocity 51.00 (40-130 cm/s) E/A Ratio 1.28 MV Decel. Time 267.00 (160-240 ms) Pulmonary Valve PV Peak Velocity 96.00 (50-150 cm/s) Tricuspid Valve TR P. Velocity 199.00 cm/s RAP Estimate 10.00 mmHg RVSP 25.80 mmHg Left Ventricle Left atrium is normal size, left ventricle is normal size, there is no concentric left ventricular hypertrophy, visually estimated ejection fraction 55% with no regional wall motion abnormality, diastolic parameters are normal. Right Ventricle Right atrium and right ventricle are normal size and contractility. Aortic Valve Aortic valve is grossly normal, there is no aortic stenosis or aortic insufficiency. Mitral Valve Mitral valve is grossly normal, there is trace mitral regurgitation. Tricuspid Valve Tricuspid valve is grossly normal, there is mild tricuspid regurgitation, calculated right ventricular systolic pressure is 26 mmHg. Pulmonic Valve Pulmonic valve is poorly visualized. Great Vessels Aortic root is normal size. Pericardium No significant pericardial effusion noted. Conclusion 1. Normal left ventricular size, preserved left ventricular systolic function, visually estimated ejection fraction 55% with no regional wall motion abnormality, diastolic parameters are within normal range. 2. Trace mitral and mild tricuspid regurgitation, calculated right ventricular systolic pressure is 26 mmHg. 3. No significant pericardial effusion noted. Electronically signed by : Salty Nicole, 05/29/2020 14:08:24
--- NOTE | 2020-05-29 08:22 | P.CONPHA_ITS ---
[facility] Pharmacy VTE Monitoring - Patient Demographics Admission date: 05/29/20 Report Date: 05/29/20 Time: 08:23 Allergies/Adverse Reactions: Patient Allergies amoxicillin Allergy (Mild, Verified 05/26/20 15:03) Diarrhea Height: 1.75 m Weight: 99.79 kg Patient Problems: Current Active Problems Tobacco use (Acute) Unstable angina pectoris (Acute) Obesity (BMI 30.0-34.9) (Acute) - VTE Risk Labs: VTE Related Lab Results Hgb 15.5 g/dL (14.1-18.0) 05/28/20 20:45 Hct 44.6 % (42.0-52.0) 05/28/20 20:45 Plt Count 175 K/mm3 (142-424) 05/28/20 20:45 BUN 23 mg/dl (9-20) H 05/28/20 20:45 Creatinine 1.20 mg/dl (0.66-1.25) 05/28/20 20:45 Estimated Creat Clear 95 mL/min (50-200) 05/28/20 20:45 Was VTE Risk Assessment Performed: Yes VTE Score: 3 VTE Risk Level: Low Risk Clinical Trial Participant: No - Prophylaxis VTE Prophylaxis Ordered?: Yes Types of VTE Prophylaxis: TEDS Knee High
--- NOTE | 2020-05-29 09:30 | HMH.CNCARD ---
History of Present Illness Consult date: 05/29/20 Requesting physician: Jaron Argueta Consult reason: chest pain Chief complaint: chest pain History of present illness: This is a 55-year-old white gentleman who is admitted to the hospital with chest pain. The patient states that he has been having chest pain for approximately a week and describes it as a pressure sensation in the mid sternal aspect of his chest and radiates to his bilateral arms. He states that this is associated with shortness of breath and diaphoresis. He also had some nausea associated with the chest pain. He states that on Friday he saw Dr. Argueta in his office for the chest pain and since that time it has continued to persist and worsen. He states that this lasts for about 5 to 10 minutes at a time and is a 7 out of 10 in intensity. He states nothing really helped to improve the chest pain at home. Because of the persistent nature of the chest pain and the continuous recurrence of the chest pain he decided to come into the emergency department. He is ruled out for an AR. He is a heavy daily smoker. He did have normal coronary arteries in 2018. He denies any fever, chills, vomiting, diarrhea, PND or orthopnea. He did have a nitro paste in place but this is caused a headache and had to be removed. He states that he has continued to have the chest pain on and off despite being in the hospital and medications to treat the chest pain. [facility] History I have reviewed the patient's past medical history: Yes Medical History: Reports:: Hypertension Denies:: Cancer, Diabetes Mellitus Type 1, Diabetes Mellitus Type 2, MRSA *Have you ever received a pneumonia vaccine?: No *Have you received a flu vaccine this season?: Yes Other Medical History: Reports: Other Other Surgeries: Yes: Appendectomy, Cardiac Catheterization, Cholecystectomy, Colonoscopy, Other Amputation: No Fractures: No - *Social History Last grade of school completed: High school graduate Smoking Status: Current every day smoker Tobacco Type: cigarettes # Packs/Day (cigarettes): 1 Alcohol Intake: current Alcohol Intake Frequency:: holidays/special occasions only Substance Use Type: denies use *Occupational Status:: employed Housing: house Household Members: spouse *Travel in the last 8 weeks: None Family Hx:: Asthma, Coronary Artery Disease, Heart Attack, Hypertension Meds Home Medications Medication Instructions Recorded Confirmed Type Aspirin [Low Dose Aspirin EC] 81 mg PO DAILY 05/28/20 05/28/20 History atorvastatin 10 mg tablet 10 mg PO HS #90 tab 05/29/20 Rx Allergies Allergy/AdvReac Type Severity Reaction Status Date / Time amoxicillin Allergy Mild Diarrhea Verified 05/26/20 15:03 Exam Vital signs and Labs for Last 24 Hours: Temp Pulse Resp BP Pulse Ox 97.8 F 72 16 137/92 H 96 05/29/20 07:55 05/29/20 07:55 05/29/20 07:55 05/29/20 07:55 05/29/20 07:55 Laboratory Results - last 24 hr 05/28/20 20:45: WBC 9.3 D, RBC 5.14, Hgb 15.5, Hct 44.6, MCV 86.8, MCH 30.1, MCHC 34.7, RDW 13.6, Plt Count 175, MPV 9.4, Neut % (Auto) 63.4, Lymph % (Auto) 27.3, [place] % (Auto) 6.1, Eos % (Auto) 2.7, Baso % (Auto) 0.4, Neut # (Auto) 5.9, Lymph # (Auto) 2.6, [place] # (Auto) 0.6, Eos # (Auto) 0.3, Baso # (Auto) 0.0, ESR 13 05/28/20 20:45: Sodium 139, Potassium 4.2, Chloride 106, Carbon Dioxide 29, Anion Gap 8.2, BUN 23 H, Creatinine 1.20, Estimated Creat Clear 95, Estimated GFR 63, Est GFR ( Amer) 76, Glucose 103 H, Calcium 9.6, Total Bilirubin 0.5, Direct Bilirubin 0.2, Conjugated Bilirubin 0.0, Indirect Bilirubin 0.3, Unconjugated Bilirubin 0.3, AST 38 D, ALT 48, Alkaline Phosphatase 68, Troponin I < 0.01, C-Reactive Protein 1.2, Total Protein 8.1, Albumin 4.5, Procalcitonin 0.060 05/28/20 23:59: Troponin I < 0.01 05/29/20 02:45: Troponin I < 0.01 05/29/20 02:45: Triglycerides 418 H, Cholesterol 198, LDL Cholesterol Direct 77.91 L, HDL Cholesterol 27 L, Cholesterol/HDL Ratio 7.3 H
[2020-05-29 14:18] LABS: CATHL Activated Clotting Time 289 SEC (74-125)
--- NOTE | 2020-05-29 17:44 | PC.NURSE ---
Pt alert and oriented x4. Able to verbalize needs. Ambulates independently to the bathroom. He has complained of being SOA just a little since his heart cath. Hes been NSR on telemetry. Denies chest pain. Tracelet still in place at this time. No oozing noted from radialband. Will continue to monitor.
--- NOTE | 2020-05-29 18:57 | HMH.HPDC ---
General - General Admission date:: 05/28/20 Discharge date: 05/29/20 *Admission Date: 05/29/20 *Chief complaint: chest pain *History of present illness: 55-year-old male who is admitted to the hospital with chest pain/pressure. The patient states that he has been having chest pain for approximately a week and describes it as a pressure sensation in the mid sternal aspect of his chest and radiates to his bilateral arms with shortness of breath, nausea and diaphoresis. Patient was seen friday by Dr. Argueta in his office for the chest pain and since that time it has continued to persist and worsen. He states that this lasts for about 5 to 10 minutes at a time and comes and goes with no improvement. Patient states the pain and pressure worsened and he came to ed for evaluation. HX heavy daily smoker and family history of cardiac issues. He did have normal coronary arteries in 2018 per patient. He states that he has continued to have the chest pain and pressure while in hospital. Patient admitted for cardiac work up. [facility] History I have reviewed the patient's past medical history: Yes Medical History: Reports:: Hypertension Denies:: Cancer, Diabetes Mellitus Type 1, Diabetes Mellitus Type 2, MRSA *Have you ever received a pneumonia vaccine?: No *Have you received a flu vaccine this season?: Yes Other Medical History: Reports: Other Other Surgeries: Yes: Appendectomy, Cardiac Catheterization, Cholecystectomy, Colonoscopy, Other Amputation: No Fractures: No - *Social History Last grade of school completed: High school graduate Smoking Status: Current every day smoker Tobacco Type: cigarettes # Packs/Day (cigarettes): 1 Alcohol Intake: current Alcohol Intake Frequency:: holidays/special occasions only Substance Use Type: denies use *Occupational Status:: employed Housing: house Household Members: spouse *Travel in the last 8 weeks: None Family Hx:: Asthma, Coronary Artery Disease, Heart Attack, Hypertension Review of Systems - Constitutional Denies body ache(s), Denies fever(s) - Eyes Denies change in vision - ENT Denies mouth pain, Denies sore throat - *Cardiovascular Reports chest pain at rest, Reports chest pain with activity, Reports shortness of breath, Reports shortness of breath with activity, Reports radiating jaw, neck or arm pain - *Respiratory Reports shortness of breath with activity - *Gastrointestinal Denies nausea, Denies vomiting - *Genitourinary Denies urinary frequency - *Musculoskeletal Denies back pain - Integumentary/Breasts Denies rash - *Neurologic Denies headache(s), Denies seizure-like activity - Psychiatric Denies lack of enjoyment - Endocrine Denies flushing - Hematologic/Lymphatic Denies enlarged lymph nodes Exam Vital signs and Labs for Last 24 Hours: Temp Pulse Resp BP Pulse Ox 98.0 F 77 16 163/100 H 99 05/29/20 12:00 05/29/20 18:15 05/29/20 18:15 05/29/20 18:15 05/29/20 18:15 Laboratory Results - last 24 hr 05/28/20 20:45: WBC 9.3 D, RBC 5.14, Hgb 15.5, Hct 44.6, MCV 86.8, MCH 30.1, MCHC 34.7, RDW 13.6, Plt Count 175, MPV 9.4, Neut % (Auto) 63.4, Lymph % (Auto) 27.3, [place] % (Auto) 6.1, Eos % (Auto) 2.7, Baso % (Auto) 0.4, Neut # (Auto) 5.9, Lymph # (Auto) 2.6, [place] # (Auto) 0.6, Eos # (Auto) 0.3, Baso # (Auto) 0.0, ESR 13 05/28/20 20:45: Sodium 139, Potassium 4.2, Chloride 106, Carbon Dioxide 29, Anion Gap 8.2, BUN 23 H, Creatinine 1.20, Estimated Creat Clear 95, Estimated GFR 63, Est GFR ( Amer) 76, Glucose 103 H, Calcium 9.6, Total Bilirubin 0.5, Direct Bilirubin 0.2, Conjugated Bilirubin 0.0, Indirect Bilirubin 0.3, Unconjugated Bilirubin 0.3, AST 38 D, ALT 48, Alkaline Phosphatase 68, Troponin I < 0.01, C-Reactive Protein 1.2, Total Protein 8.1, Albumin 4.5, Procalcitonin 0.060 05/28/20 23:59: Troponin I < 0.01 05/29/20 02:45: Troponin I < 0.01 05/29/20 02:45: Triglycerides 418 H, Cholesterol 198, LDL Cholesterol Direct 77.91 L, HDL Cho
--- NOTE | 2020-05-29 20:06 | PC.NURSE ---
PT WAS D/C VIA W/C PER [facility] AT [facility] .
--- NOTE | 2020-05-30 12:08 | HMH.PHACLD ---
Deep Leone has received discharge medication counseling on the following medications: PATIENT LEFT AFTER HOURS ON THE FOLLOWING MEDICATIONS: LIPITOR, LISINOPRIL, BISOPROLOL, ASPIRIN, BRILINTA
== END 2020-05-29 20:02 | disposition home or self-care (01) ==
LOC: ER 21:03 → 2ND 21:58
PROVIDERS: Internal Medicine; Admitting Provider Emergency Medicine; Emergency Provider Emergency Medicine; PCP Emergency Medicine; Visit Provider Emergency Medicine
DX: I25.110 Atherosclerotic heart disease of native coronary artery with unstable angina pectoris (principal); I10 Essential (primary) hypertension; Z72.0 Tobacco use; Z79.899 Other long term (current) drug therapy; R07.9 Chest pain, unspecified
CPT/HCPCS: 36415; 71046; 80048; 80061; 80076; 84145; 84484; 85025; 85347; 85651; 86140; 92928; 93005; 93306; 93458; 96365; 99152; 99284; C1725; C1769; C1875; C9600; G0378; J1644; Q9967; U0003

== ENCOUNTER 2020-06-09 08:01 | Outpatient (RCR) | payer BC, SELFPAY | END 2020-07-19 09:45 | disposition home or self-care (01) | LOC: PT 08:01 | PROVIDERS: Visit Provider Internal Medicine | DX: Z95.5 Presence of coronary angioplasty implant and graft (principal) | CPT/HCPCS: 93798 ==

== ENCOUNTER → 2020-06-16 15:47 | Outpatient (CLI) | payer BC, SELFPAY ==
[2020-06-16 16:24] LABS: Anion Gap 11.9 mEq/L (5-15); Blood Urea Nitrogen 20 mg/dl (9-20); Calcium 9.5 mg/dl (8.4-10.2); Carbon Dioxide 27 mmol/L (22.0-30.0); Chloride 104 mmol/L (98-107); Estimated Glomerular Filt Rate 63 ml/min (>60); GFR (African American) 76 ML/MIN (>60); Glucose 109 mg/dl (74-100); Potassium 3.9 mmoL/L (3.5-5.1); Sodium 139 mmol/L (136-145)
== END ==
PROVIDERS: Visit Provider Physician Assistant
DX: E78.5 Hyperlipidemia, unspecified (principal); E66.9 Obesity, unspecified; I10 Essential (primary) hypertension; I25.10 Atherosclerotic heart disease of native coronary artery without angina pectoris; R94.31 Abnormal electrocardiogram [ECG] [EKG]; Z72.0 Tobacco use
CPT/HCPCS: 36415; 80048

== ENCOUNTER → 2020-07-26 17:07 | Outpatient (CLI) | payer BC, SELFPAY ==
[2020-07-26 18:23] LABS: Alanine Aminotransferase 63 U/L (12-78); Albumin Level 4.6 g/dl (3.5-5.0); Albumin/Globulin Ratio 1.8 (1.1-1.8); Alkaline Phosphatase 71 U/L (38-126); Aspartate Amino Transferase 42 U/L (17-59); Bilirubin,Total 0.4 mg/dl (0.2-1.3); Blood Urea Nitrogen 23 mg/dl (9-20); Carbon Dioxide 26 mmol/L (22.0-30.0); Chloride 106 mmol/L (98-107); Estimated Glomerular Filt Rate 70 ml/min (>60); GFR (African American) 84 ML/MIN (>60); Globulin 2.6 g/dL (1.3-3.2); Glucose 103 mg/dl (74-100); Sodium 139 mmol/L (136-145); Total Protein,Serum 7.2 g/dl (6.3-8.2)
[2020-07-26 18:40] LABS: 25-OH Vitamin D, Total 47.9 ng/mL (30-100)
[2020-07-26 19:13] LABS: Vitamin B12 663 pg/mL (239-931)
== END ==
PROVIDERS: Visit Provider Emergency Medicine
DX: R53.83 Other fatigue (principal); E55.9 Vitamin D deficiency, unspecified; I10 Essential (primary) hypertension; E78.5 Hyperlipidemia, unspecified
CPT/HCPCS: 80053; 82306; 82607

== ENCOUNTER 2020-10-03 07:41 | Emergency (ER) | payer OTHER, SELFPAY ==
[2020-10-03 07:42] VITALS: BP 130/93; PULSE 80; RESP 16; TEMP 36.5; O2SAT 99; BMI 28.0
--- NOTE | 2020-10-03 07:48 | PC.NURSE ---
Ice pack placed on right knee at this time
--- NOTE | 2020-10-03 07:50 | XR_ITS ---
PROCEDURE: XR KNEE RT 3V CLINICAL INDICATION: injury COMPARISON: No exams were available for comparison FINDINGS: No fracture or dislocation. No lytic or blastic change. There is normal mineralization. The joint spaces are well-preserved. No significant degenerative/arthritic changes. No erosive changes evident. Other findings:There is patella Backus IMPRESSION: Patella Backus, no acute fracture Dictated by: Ed Schuster MD 10/03/2020 10:12 Ed Schuster MD in [place] 10/03/2020 10:12
--- NOTE | 2020-10-03 08:00 | HMH.EDGENADL ---
ED Disposition Clinical Impression: Instability of left knee joint, Effusion, left knee Left knee injury Qualifiers: Encounter type: initial encounter Qualified Code(s): S89.92XA - Unspecified injury of left lower leg, initial encounter Disposition: Home, Self-Care Condition on Discharge: Fair Instructions: How to Use Crutches, DI for Anterior Cruciate Ligament Injury, How to Use a Knee Immobilizer Additional Instructions: Compressive wrap to right knee, knee immobilizer. Use crutches until seen by Dr. Carrion. Ice 20-30 minutes 4-5 times and elevate right leg. Percocet as needed for pain. Follow-up with Dr. Carrion in the office tomorrow or . Call today to make that appointment. Additional instructions for EXTREMITY PAIN: Return to an emergency department immediately if you have uncontrollable pain, loss of feeling or inability to move your injured extremity. Additional instructions for CONTROLLED SUBSTANCES: You have been prescribed a medication that is a controlled substance. Controlled substances include pain medications known as opiates and sedative nerve medications known as benzodiazepines. Tramadol, fioricet, and gabapentin are also controlled substances. Some common opiates include: Codeine (such as Tylenol #3) Hydrocodone (Vicodin, Lortab, Lorcet, [place]) Oxycodone (Percocet, Percodan, Oxycodone, Oxy IR) Some common benzodiazepines include: Diazepam (Valium) Lorazepam (Ativan) Alprazolam (Xanax) Clonazepam (Klonopin) Oxazepam (Serax) All of these controlled substances are highly addictive and frequently abused. Misuse can and frequently does lead to addiction as well as overdose and . Medication should be stored in a locked cabinet or other secure storage unit. Do not store the medication in a motor vehicle. Short term supplies, 3 days or less, are prescribed because of the highly addictive nature of the medication. Any of the controlled substance medication NOT taken should be disposed of properly and NOT SAVED. The recommended method of disposing of unused medications is: Place the medicines in a sealable plastic bag. If the medicine is a solid, crush it or add water to dissolve it. Add something undesirable (cat litter, coffee grounds, etc.) Dispose of sealed bag in household trash Do not flush or pour unused medicines down a sink or drain. Controlled substances should not be shared, given away or sold. Because of the addictive nature and frequent abuse, these medications are sometimes stolen. These medications should be kept in a safe place where they cannot be stolen. Do not keep them in your car or purse. Lost or stolen prescriptions for controlled substances WILL NOT BE REFILLED in this emergency department, regardless of whether a police report was filed. Prescriptions: Oxycodone HCl/Acetaminophen [Percocet 5/325mg tablet] 1 tab PO Q6HP PRN #10 tab PRN Reason: Moderate To Severe Pain Transmission Status: Received by [facility] Referrals: Jaron Argueta MD [Primary Care Provider] - - Critical Care Critical Care Time: No Attestation: On , the high probability of a clinically significant, sudden or life threatening deterioration of the following system(s) required my full and direct attention, intervention and personal management. The time I documented below is in addition to time spent performing reported procedures but includes the following listed in this critical care notation. Medical Decision Making - James Inquiry Pt receiving controlled substance: Yes James was queried for this patient: Yes Risks and benefits of using a controlled substance: were discussed with pt by me Vital Signs: 10/03/20 07:42 10/03/20 08:46 Temperature 97.7 F Temperature Source Oral Pulse Rate 66 Pulse Rate [Left Radial] 80 Respiratory Rate 16 18 Blood Pressure 132/82 Blood Pressure [Right Arm] 130/93 H Blood Pressure Mean [Right Arm] 105 Blood
--- NOTE | 2020-10-03 08:45 | PC.NURSE ---
REBECA DELGADO speaking with Dr. Carrion
[2020-10-03 08:46] VITALS: BP 132/82; PULSE 66; RESP 18; O2SAT 97
--- NOTE | 2020-10-03 08:54 | PC.NURSE ---
Jorge wrapping around his right knee, knee immobilize placed and crutches given with instructions
[2020-10-03 09:15] VITALS: BP 132/75; PULSE 67; RESP 18; TEMP 36.7; O2SAT 97
== END 2020-10-03 09:15 | disposition home or self-care (01) ==
PROVIDERS: Emergency Provider Emergency Medicine; PCP Emergency Medicine
DX: S89.92XA Unspecified injury of left lower leg, initial encounter (principal); M25.462 Effusion, left knee; M25.362 Other instability, left knee; I10 Essential (primary) hypertension; E78.5 Hyperlipidemia, unspecified; F17.210 Nicotine dependence, cigarettes, uncomplicated; Z79.899 Other long term (current) drug therapy
CPT/HCPCS: 73562; 99283

== ENCOUNTER 2020-10-23 08:00 | Outpatient (RCR) | payer OTHER, BC, SELFPAY | END 2020-10-23 08:05 | disposition home or self-care (01) | LOC: PT 08:00 | PROVIDERS: Visit Provider Orthopaedic Surgery | DX: M25.561 Pain in right knee (principal); M25.461 Effusion, right knee | CPT/HCPCS: 97010; 97014; 97016; 97110; 97140; 97163; 97760; G0283 ==

== ENCOUNTER 2020-12-05 09:25 | Emergency (ER) | payer BC, SELFPAY ==
[2020-12-05 10:20] VITALS: BP 136/73; PULSE 71; RESP 18; TEMP 36.9; O2SAT 99; BMI 28.8
[2020-12-05 10:43] VITALS: BP 136/73; PULSE 71; RESP 18; TEMP 36.9; O2SAT 99
--- NOTE | 2020-12-05 11:03 | HMH.EDUTC ---
[facility] Disposition Clinical Impression: Encounter for laboratory testing for COVID-19 virus Disposition: Home, Self-Care Condition on Discharge: Good Instructions: DI for COVID-19 (Suspected or Confirmed ), Preventing the Spread of Coronavirus Discharge Instructions Additional Instructions: *Monitor Temp, Over the counter Motrin or Tylenol as directed/as needed Tylenol every 4 hours and Motrin every 6 hours (as long as your family doctor has told you that you can take it) for fever or pain. and straight to ER if unable to lower temp less than 101.0 after medication given Follow up IMMEDIATELY for new or worsening symptoms or no Noticeable improvement over the next 48-72 hours. 911 for difficulty breathing or swallowing You were tested for today for COVID19 your test result should be back in the next 24-48 hours, you may call to the [facility] to see if your test results are back in the next 48 hours [phone] [facility] hours are 9am-9pm You was given a handout with instructions for Self Quarantine and Self isolation for while you wait on test results and what to do if they are positive If you are positive the Health Dept will be contacting you also Make sure to take your Vitamins Vit. C Vit D and Zinc if you can take them Referrals: Jaron Argueta MD [Primary Care Provider] - As needed Time of Disposition: 11:07 Medical Decision Making - James Inquiry Pt receiving controlled substance: No James was queried for this patient: No Vital Signs: 12/05/20 10:20 12/05/20 10:43 Temperature 98.4 F 98.4 F Temperature Source Oral Pulse Rate 71 Pulse Rate [Left Brachial] 71 Respiratory Rate 18 18 Blood Pressure 136/73 Blood Pressure [Left Arm] 136/73 Blood Pressure Mean [Left Arm] 94 Blood Pressure Source [Left Arm] Automatic Cuff Blood Pressure Position [Left Arm] Sitting 02 Sat by Pulse Oximetry 99 Oxygen Delivery Method Room Air Orders (Tests/Meds): ORDERS Category Date Time Status Covid-19 Nasal PCR ([place]) Routine Lab 12/05/20 10:30 Received [facility] HPI - General Stated complaint: Covid test Time Seen by Provider: 12/05/20 11:03 Mode of Arrival: Ambulatory Source of Information: Patient Limitations: No Limitations Description of Symptoms (Recalled from Triage Doc. by RN): PATIENT REQUESTING COVID TEST. DENIES SYMPTOMS OR EXPOSURE HEENT Symptoms (Recalled from RN notes): No Resp Symptoms (Recalled from RN notes): No Skin Symptoms (Recalled from RN notes): No MS Symptoms (Recalled from RN notes): No Functional Status (Recalled from RN notes): WNL - History of Present Illness Provider Complaint: Patient states that he goes and eats with his at work sometimes and someone there tested positive State that he wasnt aroung them but they wanted him to get tested to be safe Denies any symptoms at this time - Related Data Home Medications Medication Instructions Recorded Confirmed ticagrelor 90 mg tablet 90 mg PO BID tab 09/08/20 11/29/20 Previous Rx's Medication Instructions Recorded aspirin 81 mg chewable tablet 81 mg PO DAILY #90 tab 11/29/20 bisoprolol fumarate 5 mg tablet See Rx Instructions .ROUTE 11/29/20 .COMPLEX #90 tab clonazepam 0.5 mg tablet 0.5 mg PO BID #60 tab 11/29/20 atorvastatin 40 mg tablet 40 mg PO HS #90 tab 12/04/20 Allergies Allergy/AdvReac Type Severity Reaction Status Date / Time amoxicillin Allergy Mild Diarrhea Verified 11/29/20 09:34 lisinopril Allergy Mild Verified 11/29/20 09:34 - Worker's Comp Is this a Worker's Comp case?: No [place] History - Hepatitis A Screen Drug use history?: No High risk sexual behaviors?: No History of sexually transmitted infection?: No Currently employed?: No Childcare worker?: No Do you have indoor plumbing?: Yes Do you have electricity?: Yes Attestation statement:: This patient has been screened for Hepatitis A risk factors. I have reviewed the patient's past medical history: Yes Medical History: Report
== END 2020-12-05 11:12 | disposition home or self-care (01) ==
PROVIDERS: Emergency Provider Nurse Practitioner; PCP Emergency Medicine
DX: Z20.822 Contact with and (suspected) exposure to COVID-19 (principal); I10 Essential (primary) hypertension; E78.5 Hyperlipidemia, unspecified; I25.10 Atherosclerotic heart disease of native coronary artery without angina pectoris; F17.210 Nicotine dependence, cigarettes, uncomplicated
CPT/HCPCS: 99202; G0463; U0003

== ENCOUNTER 2021-02-06 08:00 | Outpatient (RCR) | payer OTHER, SELFPAY | END 2021-02-06 08:05 | disposition home or self-care (01) | LOC: PT 08:00 | PROVIDERS: Visit Provider Orthopaedic Surgery | DX: S83.241D Other tear of medial meniscus, current injury, right knee, subsequent encounter (principal); Z98.890 Other specified postprocedural states | CPT/HCPCS: 97010; 97014; 97016; 97110; 97140; 97163; 97164; G0283 ==

== ENCOUNTER → 2021-03-29 13:11 | Outpatient (CLI) | payer BC, SELFPAY ==
--- NOTE | 2021-03-29 13:16 | XR_ITS ---
PROCEDURE: XR SHOULDER LT MIN 2V CLINICAL INDICATION: pain COMPARISON: No exams were available for comparison FINDINGS: No fracture or dislocation. No lytic or blastic change. There is normal mineralization. Mild osteoarthritic change of the glenohumeral joint. Mild subacromial stenosis. Other findings:None. IMPRESSION: Mild osteoarthritic change left glenohumeral joint with mild subacromial stenosis Dictated by: Ed Schuster MD 03/29/2021 15:05 Ed Schuster MD in [place] 03/29/2021 15:05
[2021-03-29 20:19] LABS: Amphetamine/Metha Screen,Urine Negative ng/ml (<1000)
[2021-03-29 20:20] LABS: Barbiturates Screen,Urine Negative ng/ml (<200)
[2021-03-29 20:22] LABS: Benzodiazepines Screen,Urine Negative ng/ml (<200); Cannabinoid Screen,Urine Negative ng/ml (<50)
[2021-03-29 20:23] LABS: Cocaine Screen,Urine Negative ng/ml (<300)
[2021-03-29 20:24] LABS: Methadone Screen,Urine Negative ng/ml (<300); Opiate Screen,Urine Negative ng/ml (<300)
[2021-03-29 20:25] LABS: Phencyclidine Screen,Urine Negative ng/ml (<25)
== END ==
PROVIDERS: PCP Emergency Medicine; Visit Provider Family Medicine
DX: M25.512 Pain in left shoulder (principal); Z76.0 Encounter for issue of repeat prescription
CPT/HCPCS: 73030; 80305

== ENCOUNTER 2022-03-26 09:38 | Emergency (ER) | payer BC, SELFPAY ==
[2022-03-26] VITALS (7 sets, daily range): BP systolic 130–150; BP diastolic 66–103; PULSE 82–94; RESP 18–20; TEMP 36.6; O2SAT 97–99; BMI 30.2
--- NOTE | 2022-03-26 09:56 | CT_ITS ---
FINAL REPORT TECHNIQUE: Postcontrast axial images through the abdomen and pelvis were performed. This study was performed with techniques to keep radiation doses as low as reasonably achievable, (ALARA). Individualized dose reduction techniques using automated exposure control or adjustment of mA and/or kV according to the patient's size were employed. CLINICAL HISTORY: lower abdominal pain, rectal bleeding FINDINGS: Abdomen: There is mild bibasilar atelectasis. There is mild fatty infiltration of the liver. The patient is status post cholecystectomy. The spleen is unremarkable. The adrenals are normal. The pancreas is unremarkable. The kidneys enhance appropriately. The aorta is normal in caliber. No free fluid or adenopathy is identified. No findings for mechanical bowel obstruction are identified. Pelvis: The appendix is not identified. There are scattered diverticula in the colon. There is a small umbilical hernia containing fat. There is also small left inguinal hernia containing fat. Note is made of mild bladder wall thickening, likely inflammatory. There is a moderate to large amount of retained stool throughout the colon. No free fluid, free air, abscess or adenopathy is identified. IMPRESSION: Diverticulosis without evidence of diverticulitis. Small hernias containing fat. Moderate to large stool burden. Reviewed, Interpreted and Dictated by Junior Vega III, MD Transcribed by Ernestina Freitas Authenticated and [facility]
--- NOTE | 2022-03-26 10:02 | HMH.EDGENADL ---
Discharge Plan Disposition Patient Disposition: Home, Self-Care Condition: Good Prescriptions Prescriptions: New omeprazole 40 mg capsule,delayed release(DR/EC) 40 mg PO DAILY Qty: 30 1RF polyethylene glycol 3350 [Miralax] 17 gram/dose powder 17 g PO DAILY 30 Days Qty: 510 0RF hydrocortisone [Preparation H Hydrocortisone] 1 % cream 1 applic topical BID Qty: 28.35 0RF No Action aspirin 81 mg tablet,chewable 81 mg PO DAILY Qty: 90 0RF levofloxacin 500 mg tablet 500 mg PO DAILY Qty: 7 0RF metronidazole 500 mg tablet 500 mg PO TID Qty: 21 0RF atorvastatin 40 mg tablet 40 mg PO HS Qty: 90 3RF Referrals Follow up/Referrals: Jaron Argueta MD [Primary Care Provider] - See instructions Activity Restrictions/Add. Instructions Additional Instructions/Restrictions: You were evaluated in the emergency department today. Please medicinal plant picker your prescriptions at the pharmacy and take them as prescribed. Return to the emergency department for any new or worsening symptoms, such as significant increase in bleeding, blood clots in stool, lightheadedness, or other concerns. Follow-up outpatient with your primary care provider over the next 3 days. Please pursue outpatient colonoscopy as soon as possible. Clinical Impressions Clinical Impression: BRBPR (bright red blood per rectum) Instructions Patient Instructions: DI for Hemorrhoids, DI for Gastrointestinal Bleeding Discharge ED Provider: Daniella Mcclendon General Adult HPI General Chief complaint: GI Bleed Stated complaint: sent by [facility], blood draining out of rectum Time Seen by Provider: 03/26/22 09:40 Mode of Arrival: Ambulatory Source of Information: Patient Limitations: No Limitations Description of Symptoms (Recalled from ER Triage Doc. by RN): c/o bright red rectal bleeding since the beginning of last week. States that he was scheduled for a colonoscopy back in June but missed the appt. States he seen his PCP in the office on Friday and was started on 2 antibiotics until her could get the colonosopy. History of Present Illness HPI narrative: This patient is a 57-year-old male with a history of CAD status post stenting on aspirin, hypertension, smoking history, hyperlipidemia, colitis, and colon polyp presenting to the emergency department for evaluation of 1 week of rectal bleeding. He reports that he has been having bright red blood in his stools, so he went to Dr. Argueta's office on Friday and was put on Levaquin and Flagyl with concern for possible infection in his colon. It is bright red blood and was enough to be visible in the toilet, but was not a significant amount. He states that since taking this, he had actually become constipated and had not had a bowel movement at all yesterday. He took some stool softeners overnight, and today he had a large bowel movement with a significant amount of bright red blood. Given this, he was sent to the emergency department. He denies any significant NSAID intake, lightheadedness, palpitations, or other concerns. He denies any rectal pain, but he does admit to lower abdominal discomfort that he describes as a cramping. He denies any fevers or infectious symptoms. He also denies any nausea, vomiting, hematemesis, or melena. He reports that he was supposed to have a colonoscopy in June, however he missed it. No other concerns noted at this time. He does not take any blood thinners. Related Data Previous Rx's Medication Instructions Recorded aspirin 81 mg chewable tablet 81 mg PO DAILY #90 tabs 11/29/20 atorvastatin 40 mg tablet 40 mg PO HS #90 tabs 03/09/21 levofloxacin 500 mg tablet 500 mg PO DAILY #7 tabs 03/22/22 metronidazole 500 mg tablet 500 mg PO TID #21 tabs 03/22/22 hydrocortisone 1 % topical cream 1 applic topical BID #28.35 grams 03/26/22 (Preparation H Hydrocortisone) omeprazole 40 mg capsule,delayed 40 mg PO DAILY #30 caps 03/26/22 release polyethylene glycol 3350 17 17 g
[2022-03-26 10:17] LABS: Chloride 105 mmol/L (98-107); Potassium 4.1 mmoL/L (3.5-5.1); Sodium 138 mmol/L (136-145)
[2022-03-26 10:19] LABS: Basophils # 0.1 K/mm3 (0-0.2); Basophils % 0.7 % (0.1-2.0); Blood Urea Nitrogen 17 mg/dl (9-20); Eosinophils # 0.2 K/mm3 (0.0-0.4); Eosinophils % 2.8 % (0.1-12.0); Hematocrit 44.9 % (42.0-52.0); Hemoglobin 15.5 g/dL (14.1-18.0); Lymphocytes % 25.7 % (10-50); Mean Corpuscular HGB Conc 34.5 g/dL (31.8-35.4); Mean Corpuscular Hemoglobin 29.7 pg (27.0-31.2); Mean Corpuscular Volume 86.2 fl (80-94); Mean Platelet Volume 10.2 fl (7.4-10.4); Monocytes # 0.5 K/mm3 (0.1-1.0); Monocytes % 6.4 % (1.7-9.3); Neutrophils # 5.1 K/mm3 (1.8-7.8); Neutrophils % 64.3 % (37.0-80.0); Platelet Count 196 K/mm3 (142-424); Red Blood Count 5.21 M/mm3 (4.60-6.20); Red Cell Distribution Width 13.3 % (11.5-17.5); White Blood Count 7.9 K/mm3 (4.8-10.8)
[2022-03-26 10:20] LABS: Alanine Aminotransferase 62 U/L (12-78); Albumin Level 4.5 g/dl (3.5-5.0); Albumin/Globulin Ratio 1.5 (1.1-1.8); Alkaline Phosphatase 80 U/L (38-126); Anion Gap 10.1 mEq/L (5-15); Aspartate Amino Transferase 46 U/L (17-59); Bilirubin,Total 0.3 mg/dl (0.2-1.3); Calcium 9.3 mg/dl (8.4-10.2); Carbon Dioxide 27 mmol/L (22.0-30.0); Creatinine Clearance Estimated 99 mL/min (50-200); Estimated Glomerular Filt Rate 69 ml/min (>60); GFR (African American) 84 ML/MIN (>60); Glucose 99 mg/dl (74-100); Lipase 143 U/L (23-300); Total Protein,Serum 7.5 g/dl (6.3-8.2)
[2022-03-26 10:25] LABS: Activated Partial Thrombo Time 27.1 seconds (22.8-30.6); INR 0.98 (0.9-1.1); Prothrombin Time 10.6 seconds (10.1-12.5)
[2022-03-26 10:46] LABS: Lactic Acid 0.9 mmol/L (0.7-2.1)
== END 2022-03-26 13:31 | disposition home or self-care (01) ==
PROVIDERS: Emergency Provider Emergency Medicine; PCP Emergency Medicine
DX: K62.5 Hemorrhage of anus and rectum (principal); K52.9 Noninfective gastroenteritis and colitis, unspecified; I10 Essential (primary) hypertension; I25.10 Atherosclerotic heart disease of native coronary artery without angina pectoris; E78.5 Hyperlipidemia, unspecified; F17.210 Nicotine dependence, cigarettes, uncomplicated; K63.5 Polyp of colon; Z79.82 Long term (current) use of aspirin; Z79.899 Other long term (current) drug therapy; Z88.0 Allergy status to penicillin; Z88.1 Allergy status to other antibiotic agents; Z88.3 Allergy status to other anti-infective agents; Z88.8 Allergy status to other drugs, medicaments and biological substances; Z95.5 Presence of coronary angioplasty implant and graft
CPT/HCPCS: 74177; 80053; 83605; 83690; 85025; 85610; 85730; 86850; 96361; 96365; 96375; 99285; J2405; Q9967

== ENCOUNTER 2022-04-10 08:55 | Day surgery (SDC) | payer BC, SELFPAY ==
[2022-03-29 11:57] VITALS: BMI 31.1
[2022-04-10 09:12] VITALS: BP 156/93; PULSE 78; RESP 18; TEMP 36.4; O2SAT 98
--- NOTE | 2022-04-10 09:25 | EXP.ANES.CKL ---
[facility] Disclaimer: The information contained in this section may have been updated after the patient was seen, as this information can be updated by other users. Medical History CAD (coronary artery disease) HLD (hyperlipidemia) Surgical History Hx of heart artery stent Hx of knee surgery Family History Other Family history of cancer Family hx-kidney disease Social History Smoking Status: Current every day smoker tobacco type: cigarettes packs per day: 1 pack-years: 40 alcohol intake: current substance use type: denies use current occupational status: employed Travel in the last 8 weeks: None household members: spouse housing: house marital status: education level: high school caffeine: Yes special marilia needs: No agree to transfusion: No do you feel safe at home: Yes victim of physical abuse: No victim of emotional abuse: No victim of sexual abuse: No would you like helpful sources: No [facility] Anesthesia Checklist Patient Identification Patient Identification: Arm Band Structural Data Admitted From: Home Planned Operative Procedure/s: colonoscopy Consent for Planned Operative Procedure(s) Verified: Yes Verified Documents: Surgical Consent and History and Physical NPO Status Verified Time NPO: 00:00 Additional verifications Anesthesia Reactions: No Airway Assessment C-Spine Mobility Assessed: Yes TMJ Mobility Assessed: Yes Dentition: Good Dentition Neurological Assessment Level of Consciousness: Awake and Alert Anesthesia Plan Anesthesia Risk discussed: Yes Anesthesia Plan: Verified ASA Class: III Anesthesia Type: MAC
[2022-04-10 09:34] VITALS: O2SAT 98
[2022-04-10 09:58] VITALS: BP 121/73; PULSE 89; RESP 16; TEMP 36.3; O2SAT 95
--- NOTE | 2022-04-10 09:59 | HMH.SCOPE ---
Procedure: Date: 04/10/22 Patient Date of :: 1965 Procedure Performed:: Colonoscopy Indications:: The patient is a 57 year old who presents for colonoscopy evaluation of hematochezia. A recent CT abdomen and pelvis was unremarkable. Performing Provider:: Lucio Oneal MD Referring Provider:: Jaron Argueta MD Sedation:: See RN records Procedure:: After placing the patient in the left lateral decubitus position, the colonoscopy was gently inserted into the rectum and under direct visualization advanced to the cecum which was identified by transillumination in the right lower quadrant, identification of the ileocecal valve, appendiceal orifice, and cecal strap. Color, texture, mucosa, and anatomy of the colon were carefully examined with the scope. Findings:: Anal canal: normal Rectum: Internal hemorrhoids Sigmoid colon: mild diverticulosis. fair bowel preparation Descending colon: fair bowel preparation Transverse colon: fair bowel preparation Hepatic flexure: normal Ascending colon: fair bowel preparation Cecum: fair bowel preparation Terminal ileum: not visualized Impression: Diverticulosis Fair bowel preparation Recommendations:: Hydrocortisone suppository for 7-10 days Higher fiber diet Can use stool softeners as needed Complications:: None Estimated blood obtained (mL): 0
[2022-04-10 10:08] VITALS: BP 132/97; PULSE 91; RESP 18; TEMP 36.3; O2SAT 92
[2022-04-10 10:18] VITALS: BP 156/87; PULSE 73; RESP 18; TEMP 36.3; O2SAT 95
[2022-04-10 10:30] VITALS: BP 166/97; PULSE 61; RESP 18; TEMP 36.3; O2SAT 95
== END 2022-04-10 10:30 | disposition home or self-care (01) ==
PROVIDERS: PCP Emergency Medicine; Visit Provider Internal Medicine
PROC: 0DJD8ZZ Inspection of Lower Intestinal Tract, Via Natural or Artificial Opening Endoscopic (ICD-10-PCS; CPT 45378; principal; 2022-04-10 10:00)
DX: K92.1 Melena (principal); F17.210 Nicotine dependence, cigarettes, uncomplicated; Z79.899 Other long term (current) drug therapy; K64.8 Other hemorrhoids; K57.33 Diverticulitis of large intestine without perforation or abscess with bleeding
CPT/HCPCS: 45378

== ENCOUNTER → 2022-12-26 23:08 | Outpatient (CLI) | payer OTHER, SELFPAY ==
[2022-12-26 19:20] LABS: Alanine Aminotransferase 44 U/L (12-78); Albumin Level 4.4 g/dl (3.5-5.0); Albumin/Globulin Ratio 1.4 (1.1-1.8); Alkaline Phosphatase 75 U/L (38-126); Anion Gap 16.2 mEq/L (5-15); Aspartate Amino Transferase 36 U/L (17-59); Bilirubin,Total 0.3 mg/dl (0.2-1.3); Blood Urea Nitrogen 22 mg/dl (9-20); Calcium 8.9 mg/dl (8.4-10.2); Carbon Dioxide 21 mmol/L (22.0-30.0); Chloride 107 mmol/L (98-107); Chol/HDL Ratio 8.3 (1-3.5); Cholesterol 240 mg/dl (140-200); Estimated Glomerular Filt Rate 69 ml/min (>60); GFR (African American) 84 ML/MIN (>60); Globulin 3.2 g/dL (1.3-3.2); Glucose 110 mg/dl (74-100); HDL Cholesterol 29 mg/dl (40-60); Potassium 4.2 mmoL/L (3.5-5.1); Sodium 140 mmol/L (136-145); Total Protein,Serum 7.6 g/dl (6.3-8.2)
[2022-12-26 19:32] LABS: Direct LDL Cholesterol 108.07 mg/dL (100-129); Triglycerides 581 mg/dl (30-150)
[2022-12-26 19:51] LABS: Prostate Specific Ag Screen 1.3 ng/ml (0.0-4.0)
[2022-12-26 20:02] LABS: Basophils % 0.3 % (0.1-2.0); Eosinophils # 0.1 K/mm3 (0.0-0.4); Eosinophils % 2.2 % (0.1-12.0); Hematocrit 47.9 % (42.0-52.0); Hemoglobin 15.6 g/dL (14.1-18.0); Lymphocytes % 15.2 % (10-50); Mean Corpuscular HGB Conc 32.6 g/dL (31.8-35.4); Mean Corpuscular Volume 89.1 fl (80-94); Mean Platelet Volume 11.1 fl (7.4-10.4); Monocytes # 0.4 K/mm3 (0.1-1.0); Monocytes % 5.8 % (1.7-9.3); Neutrophils # 4.9 K/mm3 (1.8-7.8); Neutrophils % 76.5 % (37.0-80.0); Platelet Count 191 K/mm3 (142-424); Red Blood Count 5.37 M/mm3 (4.60-6.20); Red Cell Distribution Width 13.7 % (11.5-17.5); White Blood Count 6.5 K/mm3 (4.8-10.8)
== END ==
PROVIDERS: PCP Emergency Medicine; Visit Provider Internal Medicine
DX: I10 Essential (primary) hypertension (principal); E78.5 Hyperlipidemia, unspecified; J30.89 Other allergic rhinitis; R05.9 Cough, unspecified; R53.83 Other fatigue; Z72.0 Tobacco use; Z12.5 Encounter for screening for malignant neoplasm of prostate
CPT/HCPCS: 80053; 80061; 85025; G0103

== ENCOUNTER 2023-03-12 17:11 | Emergency (ER) | payer OTHER, SELFPAY ==
[2023-03-12 17:30] VITALS: BP 167/99; PULSE 72; RESP 18; TEMP 36.8; O2SAT 99; BMI 34.0
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
[2023-03-12 18:13] VITALS: BP 167/99; PULSE 112; RESP 18; TEMP 36.9; O2SAT 96
== END 2023-03-12 18:13 | disposition home or self-care (01) ==
PROVIDERS: Emergency Provider Nurse Practitioner Family; PCP Internal Medicine
DX: M54.9 Dorsalgia, unspecified (principal); F17.210 Nicotine dependence, cigarettes, uncomplicated; E78.5 Hyperlipidemia, unspecified; I11.9 Hypertensive heart disease without heart failure; I25.10 Atherosclerotic heart disease of native coronary artery without angina pectoris; Z95.5 Presence of coronary angioplasty implant and graft
CPT/HCPCS: 72070; 72100; 99212; 99214; G0463

== ENCOUNTER 2023-04-15 17:50 | Outpatient (CLI) | payer OTHER, SELFPAY ==
[2023-04-15 18:57] LABS: Alanine Aminotransferase 50 U/L (12-78); Albumin Level 4.5 g/dl (3.5-5.0); Albumin/Globulin Ratio 1.5 (1.1-1.8); Alkaline Phosphatase 70 U/L (38-126); Anion Gap 13.6 mEq/L (5-15); Aspartate Amino Transferase 36 U/L (17-59); Bilirubin,Total 0.5 mg/dl (0.2-1.3); Blood Urea Nitrogen 17 mg/dl (9-20); Calcium 9.3 mg/dl (8.4-10.2); Carbon Dioxide 22 mmol/L (22.0-30.0); Chloride 105 mmol/L (98-107); Chol/HDL Ratio 7.4 (1-3.5); Cholesterol 260 mg/dl (140-200); Estimated Glomerular Filt Rate 87 ml/min (>60); GFR (African American) 105 ML/MIN (>60); Globulin 3.1 g/dL (1.3-3.2); Glucose 110 mg/dl (74-100); HDL Cholesterol 35 mg/dl (40-60); Potassium 4.6 mmoL/L (3.5-5.1); Sodium 136 mmol/L (136-145); Total Protein,Serum 7.6 g/dl (6.3-8.2); Triglycerides 244 mg/dl (30-150); VLDL Cholesterol 49 mg/dL (0-40)
[2023-04-15 19:18] LABS: Basophils % 0.5 % (0.1-2.0); Eosinophils # 0.1 K/mm3 (0.0-0.4); Eosinophils % 1.6 % (0.1-12.0); Hematocrit 47.3 % (42.0-52.0); Lymphocytes # 1.5 K/mm3 (0.7-4.5); Lymphocytes % 21.1 % (10-50); Mean Corpuscular HGB Conc 33.8 g/dL (31.8-35.4); Mean Corpuscular Hemoglobin 29.9 pg (27.0-31.2); Mean Corpuscular Volume 88.4 fl (80-94); Mean Platelet Volume 10.9 fl (7.4-10.4); Monocytes # 0.5 K/mm3 (0.1-1.0); Monocytes % 6.7 % (1.7-9.3); Neutrophils % 70.2 % (37.0-80.0); Platelet Count 188 K/mm3 (142-424); Red Blood Count 5.36 M/mm3 (4.60-6.20); Red Cell Distribution Width 13.9 % (11.5-17.5); White Blood Count 7.1 K/mm3 (4.8-10.8)
[2023-04-15 19:29] LABS: Thyroid Stimulating Hormone 2.43 uIU/mL (0.465-4.68)
[2023-04-15 19:40] LABS: 25-OH Vitamin D, Total 47.4 ng/mL (30-100)
[2023-04-21 00:05] LABS: Testosterone, Total, LC/MS 309 ng/dL (.)
== END 2023-04-15 23:59 ==
PROVIDERS: PCP Nurse Practitioner Family; Visit Provider Nurse Practitioner Family
DX: I10 Essential (primary) hypertension (principal); R51.9 Headache, unspecified; E66.9 Obesity, unspecified; Z68.30 Body mass index [BMI] 30.0-30.9, adult; Z79.899 Other long term (current) drug therapy
CPT/HCPCS: 80053; 80061; 82306; 84403; 84443; 85025

== ENCOUNTER 2023-07-20 22:34 | Emergency (ER) | payer OTHER, SELFPAY ==
[2023-07-20 22:56] VITALS: BP 173/115; PULSE 88; RESP 15; O2SAT 96
[2023-07-20 23:00] VITALS: BP 170/111; PULSE 89; RESP 16; O2SAT 95
[2023-07-20 23:04] VITALS: BP 168/110; PULSE 87; RESP 17; O2SAT 95
[2023-07-20 23:07] VITALS: BP 173/115; PULSE 82; RESP 16; TEMP 36.8; O2SAT 96; BMI 30.2
--- NOTE | 2023-07-20 23:08 | ED_ITS ---
Discharge Plan Disposition Patient Disposition: Home, Self-Care Prescriptions Prescriptions: No Action losartan-hydrochlorothiazide 50-12.5 mg tablet See Rx Instructions .ROUTE .COMPLEX Qty: 30 0RF Dose Instruction: Take 1 tablet by mouth once daily Rx Instructions: Take 1 tablet by mouth once daily cyclobenzaprine 10 mg Tablet 10 mg PO BID PRN (Reason: Muscle Spasm) Qty: 20 0RF ibuprofen [ibuprofen] 600 mg tablet 600 mg PO Q6HP PRN (Reason: Mild Pain) Qty: 30 0RF aspirin 81 mg tablet,chewable 81 mg PO DAILY Referrals Follow up/Referrals: [place] APRN [Primary Care Provider] - See instructions Activity Restrictions/Add. Instructions Additional Instructions/Restrictions: Your blood work and CT scans all returned normal. Please follow-up with your primary care provider. Please return to the emergency department if you develop any new or worsening symptoms or become concerned for your health. Clinical Impressions Clinical Impression: Episode of abnormal behavior, Transient vision disturbance of left eye Headache Qualifiers: Headache chronicity pattern: acute headache Intractability: not intractable Instructions Patient Instructions: DI for Altered Mental Status Discharge ED Provider: Juwan Xavier General Adult HPI General Chief complaint: Altered Mental Status Stated complaint: Memory Loss,nose bleed today Time Seen by Provider: 07/20/23 23:08 History of Present Illness HPI narrative: 58-year-old male with history of hypertension hyperlipidemia coronary artery disease presents with multiple complaints. 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 These have remained present throughout the day but are improved from prior. The noted that the patient has been acting abnormally today. He had difficulty in buying groceries at the store, bought the wrong things. They also report that he had a nosebleed earlier today which is abnormal for him. Patient has no history of stroke, seizure or intracranial pathology. He denies any eye trauma or significant pain. He denies any numbness, weakness, chest pain abdominal pain shortness of breath. He reports history of headaches but does not typically have any neurologic symptoms associated. Patient denies any drug use. Related Data Home Medications Medication Instructions Recorded Confirmed aspirin 81 mg chewable tablet [address] [facility] 03/29/22 04/15/23 Previous Rx's Medication Instructions Recorded cyclobenzaprine 10 mg tablet 10 mg PO BID PRN Muscle Spasm #20 03/12/23 tabs ibuprofen 600 mg tablet 600 mg PO Q6HP PRN Mild Pain #30 03/12/23 tabs losartan 50 mg-hydrochlorothiazide See Rx Instructions .Route 07/10/23 12.5 mg tablet .COMPLEX #30 tabs Allergies Allergy/AdvReac Type Severity Reaction Status Date / Time amoxicillin Allergy Mild Diarrhea Verified 04/15/23 10:05 lisinopril Allergy Mild Verified 04/15/23 10:05 PFSH [facility] Disclaimer: The information contained in this section may have been updated after the patient was seen, as this information can be updated by other users. Medical History CAD (coronary artery disease) HLD (hyperlipidemia) Surgical History Hx of heart artery stent Hx of knee surgery right Family History Other Family history of cancer Family hx-kidney disease Social History Smoking Status: Current every day smoker tobacco type: cigarettes packs per day: 1 alcohol intake: current substance use type: denies use current occupational status: employed Travel in the last 8 weeks: None household members: spouse housing: house marital status: education level: high school caffeine: Yes special marilia needs: No agree to transfusion: No do you feel safe at home: Yes victim of physical abuse: No victim of emotional abuse: No victim of sexual abuse: No would you like helpful sources: No ROS Obtained: Yes All systems reviewed & no additional complaints except as documented Physical Exam General General appearance: alert and in no apparent distress Head Head exam: atraumatic and normocephalic Eye Eye exam: Present normal appearance, PERRL and EOMI; Absent conjunctival redness ENT ENT exam: Present normal oropharynx and normal external ear exam Neck Neck exam: Present normal inspection and full ROM Chest Chest inspection: Present normal inspection and symmetric chest wall rise; Absent tenderness Respiratory Respiratory exam: Present normal lung sounds bilaterally; Absent respiratory distress Cardiovascular Cardiovascular exam: Present regular rate and normal rhythm Abdominal Exam Abdominal exam: Present soft; Absent distention, tenderness or guarding Extremities Exam Extremities exam: Present normal inspection; Absent edema or joint swelling Back Exam Back exam: Present normal inspection; Absent tenderness Neurological Exam Neurological exam: Present alert, oriented X3, CN II-XII intact, normal gait, reflexes normal and other (20/40 vision bilaterally, normal cerebellar exam); Absent motor sensory deficit Psychiatric Psychiatric exam: Present normal affect and normal mood Skin Skin exam: Present warm, dry and normal color Lymphatic Lymphatic Findings: no adenopathy Medical Decision Making Medical Records Medical records reviewed: Yes I reviewed the patient's medical records. James Inquiry Pt receiving controlled substance: No James was queried for this patient: No Vital Signs: 07/20/23 22:56 07/20/23 23:00 07/20/23 23:04 Temperature Temperature Source Pulse Rate 88 89 87 Pulse Rate [Right Brachial] Respiratory Rate 15 16 17 Blood Pressure 173/115 H 170/111 H 168/110 H Blood Pressure [Right Arm] Blood Pressure Mean 134 130 128 Blood Pressure Mean [Right Arm] Blood Pressure Source [Right Arm] Blood Pressure Position [Right Arm] 02 Sat by Pulse Oximetry 96 95 95 Oxygen Delivery Method Room Air Room Air Room Air 07/20/23 23:07 07/20/23 23:48 07/21/23 00:00 Temperature 98.2 F Temperature Source Oral Pulse Rate 80 79 Pulse Rate [Right Brachial] 82 Respiratory Rate 16 18 19 Blood Pressure 163/98 H Blood Pressure [Right Arm] 173/115 H Blood Pressure Mean 119 Blood Pressure Mean [Right Arm] 134 Blood Pressure Source [Right Arm] Automatic Cuff Blood Pressure Position [Right Arm] Sitting 02 Sat by Pulse Oximetry 96 95 96 Oxygen Delivery Method Room Air Room Air Room Air 07/21/23 00:00 07/21/23 00:30 07/21/23 01:00 Temperature Temperature Source Pulse Rate 80 89 76 Pulse Rate [Right Brachial] Respiratory Rate 18 17 15 Blood Pressure 151/92 H 164/98 H 141/94 H Blood Pressure [Right Arm] Blood Pressure Mean 111 110 107 Blood Pressure Mean [Right Arm] Blood Pressure Source [Right Arm] Blood Pressure Position [Right Arm] 02 Sat by Pulse Oximetry 96 95 95 Oxygen Delivery Method Room Air 07/21/23 01:30 07/21/23 01:45 07/21/23 02:01 Temperature 98.2 F Temperature Source Oral Pulse Rate 71 81 74 Pulse Rate [Right Brachial] Respiratory Rate 15 16 15 Blood Pressure 137/83 137/83 Blood Pressure [Right Arm] Blood Pressure Mean Blood Pressure Mean [Right Arm] Blood Pressure Source [Right Arm] Blood Pressure Position [Right Arm] 02 Sat by Pulse Oximetry 95 95 Oxygen Delivery Method Room Air Lab Data Lab results reviewed: Yes I reviewed the patient's lab results. Lab Results 07/20/23 23:15: WBC 8.5, RBC 4.68, Hgb 14.2, Hct 42.4, MCV 90.7, MCH 30.3, MCHC 33.4, RDW 13.9, Plt Count 173, MPV 9.8, Neut % (Auto) 65.8, Lymph % (Auto) 24.9, Wheeler % (Auto) 6.0, Eos % (Auto) 2.8, Baso % (Auto) 0.6, Neut # (Auto) 5.6, Lymph # (Auto) 2.1, Wheeler # (Auto) 0.5, Eos # (Auto) 0.2, Baso # (Auto) 0.1, Sodium 139, Potassium 3.5, Chloride 107, Carbon Dioxide 25, Anion Gap 10.5, BUN 30 H, Creatinine 0.90, Estimated Creat Clear 119, Estimated GFR 87, Est GFR ( Amer) 105, Glucose 108 H, Calcium 9.3, Total Bilirubin 0.5, AST 44, ALT 52, Alkaline Phosphatase 66, Total Protein 7.2, Albumin 4.3, Globulin 2.9, Albumin/Globulin Ratio 1.5 07/20/23 23:15 07/20/23 23:15 Orders (Tests/Meds): ED MEDICATIONS Discontinued Medications Generic Name Dose Route Start Last Admin Trade Name Freq PRN Reason Stop Dose Admin Acetaminophen 1,000 mg 07/20/23 23:56 07/21/23 00:16 Acetaminophen 500mg Tab PO 07/20/23 23:57 1,000 mg ONCE ONE Administration Lactated Ringer's 1,000 mls @ 999 mls/hr 07/20/23 23:45 07/21/23 00:18 Lactated Ringer's 1000 Ml Bag IV 07/21/23 00:45 999 mls/hr .Q1H1M MINI Administration Magnesium Sulfate 2 gm in 50 mls @ 50 mls/hr 07/20/23 23:56 07/21/23 00:17 Magnesium Sulfate 2gm/50ml Premix IV 07/21/23 00:55 50 mls/hr ONCE ONE Administration Iopamidol 100 ml 07/21/23 00:46 07/21/23 00:47 Iopamidol-370 (76%);100ml Bottle IV 07/21/23 00:47 100 ml ONCE ONE Administration Prochlorperazine Edisylate 10 mg 07/20/23 23:56 07/21/23 00:17 Prochlorperazine 10mg/2ml Vial IV 07/20/23 23:57 10 mg ONCE ONE Administration Sodium Chloride 50 ml 07/21/23 00:46 07/21/23 00:47 0.9 % Sodium Chloride 50 Ml Vial IV 07/21/23 00:47 50 ml ONCE ONE Administration Sodium Chloride 10 ml 07/21/23 00:46 07/21/23 00:47 Sodium Chloride 0.9% 10ml Syr (Rad Only) IV 07/21/23 00:47 10 ml ONCE ONE Administration ORDERS Category Date Time Status CT angio head Stat Cat Scan 07/20/23 23:[address] angio neck Stat Cat Scan 07/20/23 23:[address] head/brain wo con Stat Cat Scan 07/20/23 23:56 Completed CBC w/Auto Diff [Complete Blood Count Auto Diff] Stat Lab 07/20/23 23:15 Completed CMP [Comprehensive Metabolic Panel] Stat Lab 07/20/23 23:15 Completed Medical Decision Narrative: 58-year-old male with history of hypertension hyperlipidemia coronary artery disease headaches presents with multiple complaints including nosebleed earlier today, development of headache and some left eye blurry vision around 10 AM, abnormal behavior per . History was obtained interactive discussion with patient, patient's , chart review. On arrival, patient is [afebrile, hemodynamically stable, satting appropriately, alert, oriented x4, GCS 15], moving all extremities spontaneously. Full physical exam performed and significant for no focal neurologic deficits, equal vision bilaterally Differential includes but is not limited to intracranial lesion, stroke, aneurysm, drug use, migraine with neurologic symptoms. Patient was given migraine cocktail for symptomatic management and correction of underlying abnormalities. Workup initiated including CBC CMP CT head, CTA head neck. No indication for tPA given NIH of 0, last known normal greater than 12 hours prior to arrival. On re-evaluation, patient [remains afebrile, HD stable.] Reports complete symptomatic resolution of his headache and improved vision. Laboratory workup independently interpreted by me and significant for mildly elevated BUN, no significant leukocytosis, no significant electrolyte derangement. Imaging independently interpreted by me and significant for no acute intracranial mass lesion, bleed, stroke, no evidence of vascular stenosis or occlusion. See radiology read for full review of final results. Given patient history, exam and workup, patient's presentation most likely represents migraine headache with transient visual disturbances. I am not certain what the cause of his unusual behavior this afternoon was. The underlying etiology of patient's presentation remains unclear, though not concerned it is an acute stroke, bleed, aneurysm etc. I had extensive discussion with patient regarding his presentation and workup. Recommended he follow-up PCP for further assessment as he may benefit from MRI. Return precautions given.. Procedures Risk/Benefits of Procedure(s) Were Explained: Yes Critical Care Critical Care Time Critical Care Time: No
[2023-07-20 23:48] VITALS: BP 163/98; PULSE 80; RESP 18; O2SAT 95
--- NOTE | 2023-07-20 23:56 | CT_ITS ---
PROCEDURE INFORMATION: Exam: CT Head Without Contrast Exam date and time: 07/21/2023 12:38 AM Age: 58 years old Clinical indication: Pain; Altered mental status/memory loss and visual disturbance; Headache; Additional info: Headache, left vision changes, abnormal behavior TECHNIQUE: Imaging protocol: Computed tomography of the head without contrast. Radiation optimization: All CT scans at this facility use at least one of these dose optimization techniques: automated exposure control; mA and/or kV adjustment per patient size (includes targeted exams where dose is matched to clinical indication); or iterative reconstruction. COMPARISON: No relevant prior studies available. FINDINGS: Brain: Normal. No hemorrhage. Unremarkable white matter. No mass effect. Cerebral ventricles: No ventriculomegaly. Paranasal sinuses: Visualized sinuses are unremarkable. No fluid levels. Mastoid air cells: Visualized mastoid air cells are well aerated. Orbital cavities: The orbital contents are symmetric and normal. Bones/joints: Repair of prior left orbital floor and anterior maxillary fractures. Soft tissues: Unremarkable. IMPRESSION: No acute intracranial abnormality.
--- NOTE | 2023-07-20 23:56 | CT_ITS ---
PROCEDURE INFORMATION: Exam: CTA Head With Contrast, Arteriography Exam date and time: 07/21/2023 12:40 AM Age: 58 years old Clinical indication: Pain; Visual disturbance; Headache; Additional info: Headache, left vision changes, abnormal behavior TECHNIQUE: Imaging protocol: Computed tomographic angiography of the head with contrast. Exam focused on the arteries. 3D rendering (Not supervised by radiologist): MIP and/or 3D reconstructed images were created by the technologist. Radiation optimization: All CT scans at this facility use at least one of these dose optimization techniques: automated exposure control; mA and/or kV adjustment per patient size (includes targeted exams where dose is matched to clinical indication); or iterative reconstruction. Contrast material: ISOVUE; Contrast volume: 100 ml; Contrast route: INTRAVENOUS (IV); COMPARISON: CT HEAD/BRAIN WO CON 07/21/2023 12:38 AM FINDINGS: ANTERIOR CIRCULATION: Right internal carotid artery: Intracranial segment is patent with no significant stenosis. No aneurysm. Right middle cerebral artery: No occlusion or significant stenosis. No aneurysm. Right anterior cerebral artery: No occlusion or significant stenosis. No aneurysm. Left internal carotid artery: Intracranial segment is patent with no significant stenosis. No aneurysm. Left middle cerebral artery: No occlusion or significant stenosis. No aneurysm. Left anterior cerebral artery: No occlusion or significant stenosis. No aneurysm. POSTERIOR CIRCULATION: Right vertebral artery: No occlusion or significant stenosis. No aneurysm. Left vertebral artery: No occlusion or significant stenosis. No aneurysm. Basilar artery: No occlusion or significant stenosis. No aneurysm. Right posterior cerebral artery: No occlusion or significant stenosis. No aneurysm. Left posterior cerebral artery: No occlusion or significant stenosis. No aneurysm. Brain: No definite mass, mass effect, or midline shift. Cerebral ventricles: No ventriculomegaly. Bones/joints: Unremarkable. No acute fracture. Soft tissues: Unremarkable. IMPRESSION: No large vessel stenosis or occlusion.
--- NOTE | 2023-07-20 23:56 | CT_ITS ---
PROCEDURE INFORMATION: Exam: CTA Neck With Contrast Exam date and time: 07/21/2023 12:40 AM Age: 58 years old Clinical indication: Pain; Visual disturbance; Headache; Additional info: Headache, left vision changes, abnormal behavior TECHNIQUE: Imaging protocol: Computed tomographic angiography of the neck with contrast. Exam focused on the cervical segments of the vasculature. 3D rendering (Not supervised by radiologist): MIP and/or 3D reconstructed images were created by the technologist. Radiation optimization: All CT scans at this facility use at least one of these dose optimization techniques: automated exposure control; mA and/or kV adjustment per patient size (includes targeted exams where dose is matched to clinical indication); or iterative reconstruction. Contrast material: ISOVUE; Contrast volume: 100 ml; Contrast route: INTRAVENOUS (IV); COMPARISON: CT ANGIO HEAD 07/21/2023 12:40 AM FINDINGS: Right common carotid artery: No stenosis. No dissection or occlusion. Right internal carotid artery: No stenosis of the extracranial segment. No dissection or occlusion. Tiny calcification at the origin. Right external carotid artery: No occlusion or stenosis of the origin. Left common carotid artery: No stenosis. No dissection or occlusion. Left internal carotid artery: No stenosis of the extracranial segment. No dissection or occlusion. Tiny calcification the origin. Left external carotid artery: No occlusion or stenosis of the origin. Right vertebral artery: No stenosis. No dissection or occlusion. Left vertebral artery: No stenosis. No dissection or occlusion. Salivary glands: There are several calcifications associated with the left submandibular gland with the largest measuring 8 x 13 mm. Soft tissues: Normal. No significant soft tissue swelling. Bones/joints: No acute fracture. IMPRESSION: No stenosis or occlusion. REFERENCES: NASCET CRITERIA. The degree of stenosis in the cervical segment of the internal carotid artery is based on NASCET criteria. Normal is no stenosis. Mild is less than 50% stenosis. Moderate is 50-69% stenosis. Severe is 70% to 99% stenosis. Total occlusion is no detectable patent lumen.
[2023-07-21] VITALS: BP 151/92; PULSE 79; PULSE 80; RESP 18; RESP 19; O2SAT 96
[2023-07-21 00:03] LABS: Basophils # 0.1 K/mm3 (0-0.2); Basophils % 0.6 % (0.1-2.0); Eosinophils # 0.2 K/mm3 (0.0-0.4); Eosinophils % 2.8 % (0.1-12.0); Hematocrit 42.4 % (42.0-52.0); Hemoglobin 14.2 g/dL (14.1-18.0); Lymphocytes # 2.1 K/mm3 (0.7-4.5); Lymphocytes % 24.9 % (10-50); Mean Corpuscular HGB Conc 33.4 g/dL (31.8-35.4); Mean Corpuscular Hemoglobin 30.3 pg (27.0-31.2); Mean Corpuscular Volume 90.7 fl (80-94); Mean Platelet Volume 9.8 fl (7.4-10.4); Monocytes # 0.5 K/mm3 (0.1-1.0); Neutrophils # 5.6 K/mm3 (1.8-7.8); Neutrophils % 65.8 % (37.0-80.0); Platelet Count 173 K/mm3 (142-424); Red Blood Count 4.68 M/mm3 (4.60-6.20); Red Cell Distribution Width 13.9 % (11.5-17.5); White Blood Count 8.5 K/mm3 (4.8-10.8)
[2023-07-21 00:08] LABS: Alanine Aminotransferase 52 U/L (12-78); Albumin Level 4.3 g/dl (3.5-5.0); Albumin/Globulin Ratio 1.5 (1.1-1.8); Alkaline Phosphatase 66 U/L (38-126); Anion Gap 10.5 mEq/L (5-15); Aspartate Amino Transferase 44 U/L (17-59); Bilirubin,Total 0.5 mg/dl (0.2-1.3); Blood Urea Nitrogen 30 mg/dl (9-20); Calcium 9.3 mg/dl (8.4-10.2); Carbon Dioxide 25 mmol/L (22.0-30.0); Chloride 107 mmol/L (98-107); Creatinine Clearance Estimated 119 mL/min (50-200); Estimated Glomerular Filt Rate 87 ml/min (>60); GFR (African American) 105 ML/MIN (>60); Globulin 2.9 g/dL (1.3-3.2); Glucose 108 mg/dl (74-100); Potassium 3.5 mmoL/L (3.5-5.1); Sodium 139 mmol/L (136-145); Total Protein,Serum 7.2 g/dl (6.3-8.2)
[2023-07-21] MEDS: ACETAMINOPHEN 500MG TAB 1000 MG PO (00:16)
[2023-07-21] MEDS: MAGNESIUM SULFATE IN WATER 2 GM/50 ML PIGGYBACK IV (00:17)
[2023-07-21] MEDS: PROCHLORPERAZINE 10MG/2ML VIAL 10 MG IV (00:17)
[2023-07-21] MEDS: LACTATED RINGERS 1000ML 1,000 ML 999 ML IV (00:18)
[2023-07-21 00:30] VITALS: BP 164/98; PULSE 89; RESP 17; O2SAT 95
[2023-07-21] MEDS: SODIUM CHLORIDE 0.9% 10ML SYR (RAD ONLY) 10 ML IV (00:47)
[2023-07-21] MEDS: 0.9 % SODIUM CHLORIDE 50 ML VIAL IV (00:47)
[2023-07-21] MEDS: IOPAMIDOL-370 (76%);100ML BOTTLE 100 ML IV (00:47)
[2023-07-21 01:00] VITALS: BP 141/94; PULSE 76; RESP 15; O2SAT 95
[2023-07-21 01:30] VITALS: BP 137/83; PULSE 71; RESP 15; O2SAT 95
[2023-07-21 01:45] VITALS: PULSE 81; RESP 16; O2SAT 95
[2023-07-21 02:01] VITALS: BP 137/83; PULSE 74; RESP 15; TEMP 36.8; O2SAT 96
== END 2023-07-21 02:06 | disposition home or self-care (01) ==
PROVIDERS: Emergency Provider Emergency Medicine; PCP Nurse Practitioner Family
DX: R51.9 Headache, unspecified (principal); H53.8 Other visual disturbances; R41.0 Disorientation, unspecified; F17.210 Nicotine dependence, cigarettes, uncomplicated; I11.9 Hypertensive heart disease without heart failure; I25.10 Atherosclerotic heart disease of native coronary artery without angina pectoris; Z95.5 Presence of coronary angioplasty implant and graft
CPT/HCPCS: 70450; 70496; 70498; 80053; 85025; 96365; 99285; J3475; Q9967

== ENCOUNTER 2023-10-27 08:38 | Emergency (ER) | payer OTHER, SELFPAY ==
[2023-10-27 08:47] VITALS: BP 146/102; PULSE 76; RESP 16; TEMP 36.6; O2SAT 98; BMI 28.0
--- NOTE | 2023-10-27 09:31 | XR_ITS ---
FINAL REPORT CLINICAL HISTORY: injury, pain FINDINGS: LEFT KNEE 3 views of the left knee were obtained. There is no acute fracture or dislocation. Visualized joint spaces are normally aligned. Soft tissues are unremarkable. IMPRESSION: No acute bony abnormality. Reviewed, Interpreted and Dictated by Kimani Villegas MD Transcribed by Bonnie Au Authenticated and [facility]
[2023-10-27] MEDS: ACETAMINOPHEN 500MG TAB 1000 MG PO (09:40)
[2023-10-27] MEDS: KETOROLAC 30MG/ML VIAL 30 MG IM (09:41)
--- NOTE | 2023-10-27 09:57 | PC.NURSE ---
Rad in room for x-ray
--- NOTE | 2023-10-27 10:03 | ED_ITS ---
Discharge Plan Disposition Patient Disposition: Home, Self-Care Condition: Good Prescriptions Prescriptions: New ibuprofen 800 mg tablet 800 mg PO Q8H PRN (Reason: pain) Qty: 20 0RF No Action losartan-hydrochlorothiazide 50-12.5 mg tablet See Rx Instructions .ROUTE .COMPLEX Qty: 90 2RF Dose Instruction: Take 1 tablet by mouth once daily Rx Instructions: Take 1 tablet by mouth once daily cyclobenzaprine 10 mg Tablet 10 mg PO BID PRN (Reason: Muscle Spasm) Qty: 20 0RF ibuprofen [ibuprofen] 600 mg tablet 600 mg PO Q6HP PRN (Reason: Mild Pain) Qty: 30 0RF aspirin 81 mg tablet,chewable 81 mg PO DAILY Referrals Follow up/Referrals: [place] APRN [Primary Care Provider] - See instructions Froy Jones DO [Staff Physician] - See instructions Activity Restrictions/Add. Instructions Additional Instructions/Restrictions: You were evaluated in the emergency department today. Please use your knee brace as well as crutches at home as needed for stabilization and support. Please follow-up very closely with orthopedics. We have provided you with his information. They can help you with Workmen's Comp. Call his office to schedule an appointment. 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 You may also take Tylenol every 4-6 hours as needed. Return to the emergency department for any new or worsening symptoms. Clinical Impressions Clinical Impression: Acute pain of left knee Stand Alone Forms Stand Alone Forms: Work/School Release Instructions Patient Instructions: DI for Knee Effusion, DI for Knee Pain Discharge ED Provider: Daniella Mcclendon General Adult HPI General Chief complaint: Extremity Injury, Lower Stated complaint: AO 10/23 fall, left knee pain/swelling workmans com Time Seen by Provider: 10/27/23 09:15 Mode of Arrival: Ambulatory Source of Information: Patient Limitations: No Limitations Description of Symptoms (Recalled from ER Triage Doc. by RN): Pt reports he fell on friday, 2-3 feet, and c/o of left knee pain. History of Present Illness HPI narrative: This patient is a 58-year-old male with a history of hypertension and hyperlipidemia as well as prior right knee injury with surgical repair presenting to the emergency department for evaluation with concern for left knee pain. Patient reports that on Friday he was working when he stepped down and twinged his left knee. He states that since then, he has had pain and swelling. He is still able to walk, but it is very stiff whenever he first gets up. He denies any other concerns or complaints, such as hip or thigh pain, lower leg pain, numbness, tingling, or other concerns. Related Data Home Medications Medication Instructions Recorded Confirmed aspirin 81 mg chewable tablet 81 mg PO DAILY heart health 03/29/22 04/15/23 Previous Rx's Medication Instructions Recorded cyclobenzaprine 10 mg tablet 10 mg PO BID PRN Muscle Spasm #20 03/12/23 tabs ibuprofen 600 mg tablet 600 mg PO Q6HP PRN Mild Pain #30 03/12/23 tabs losartan 50 mg-hydrochlorothiazide See Rx Instructions .Route 09/12/23 12.5 mg tablet .COMPLEX #90 tabs ibuprofen 800 mg tablet 800 mg PO Q8H PRN pain #20 tabs 10/27/23 Allergies Allergy/AdvReac Type Severity Reaction Status Date / Time amoxicillin Allergy Mild Diarrhea Verified 04/15/23 10:05 lisinopril Allergy Mild Verified 04/15/23 10:05 [facility] Disclaimer: The information contained in this section may have been updated after the patient was seen, as this information can be updated by other users. Medical History HLD (hyperlipidemia) CAD (coronary artery disease) Surgical History Hx of knee surgery Hx of heart artery stent Family History Other Family history of cancer Family hx-kidney disease Social History Smoking Status: Never smoker alcohol intake: current alcohol intake frequency: holidays/special occasions only substance use type: denies use current occupational status: employed Travel in the last 8 weeks: None household members: spouse housing: house marital status: education level: high school caffeine: Yes special marilia needs: No agree to transfusion: No do you feel safe at home: Yes victim of physical abuse: No victim of emotional abuse: No victim of sexual abuse: No would you like helpful sources: No ROS Obtained: Yes All systems reviewed & no additional complaints except as documented Physical Exam General General appearance: alert and in no apparent distress Head Head exam: atraumatic and normocephalic Eye Eye exam: Present normal appearance, PERRL and EOMI ENT ENT exam: Present normal exam, normal oropharynx, mucous membranes moist and normal external ear exam Neck Neck exam: Present normal inspection, full ROM and trachea midline; Absent tenderness Chest Chest inspection: Present normal inspection and symmetric chest wall rise; Absent tenderness Respiratory Respiratory exam: Present normal lung sounds bilaterally; Absent respiratory distress, wheezes, stridor or accessory muscle use Cardiovascular Cardiovascular exam: Present regular rate and normal rhythm Abdominal Exam Abdominal exam: Present soft; Absent distention, tenderness or guarding Extremities Exam Extremities exam: Present full ROM, tenderness, normal capillary refill, joint swelling and other (Mild left knee joint effusion with tenderness to palpation over the medial joint line. No erythema, warmth, or other concerns. Preserved passive range of motion with limitations in endrange of flexion. All compartments soft, neurovascularly intact distally. No significant instability.) Back Exam Back exam: Present normal inspection and full ROM; Absent tenderness Neurological Exam Neurological exam: Present alert, oriented X3, CN II-XII intact and normal gait; Absent motor sensory deficit Psychiatric Psychiatric exam: Present normal affect and normal mood Skin Skin exam: Present warm and dry Medical Decision Making Medical Records Medical records reviewed: Yes I reviewed the patient's medical records. James Inquiry Pt receiving controlled substance: No Vital Signs: 10/27/23 08:47 10/27/23 10:57 Temperature 97.8 F 97.8 F Temperature Source Oral Pulse Rate 72 Pulse Rate [Right Brachial] 76 Respiratory Rate 16 16 Blood Pressure 140/89 Blood Pressure [Right Arm] 146/102 H Blood Pressure Mean [Right Arm] 116 02 Sat by Pulse Oximetry 98 Oxygen Delivery Method Room Air Room Air Lab Data Lab results reviewed: Yes I reviewed the patient's lab results. Orders (Tests/Meds): ED MEDICATIONS Discontinued Medications Generic Name Dose Route Start Last Admin Trade Name Freq PRN Reason Stop Dose Admin Acetaminophen 1,000 mg 10/27/23 09:31 10/27/23 09:40 Acetaminophen 500mg Tab PO 10/27/23 09:32 1,000 mg ONCE ONE Administration Ketorolac Tromethamine 30 mg 10/27/23 09:31 10/27/23 09:41 Ketorolac 30mg/Ml Vial IM 10/27/23 09:32 30 mg ONCE ONE Administration ORDERS Category Date Time Status Knee XR left 3 views [XR knee LT 3V] Stat Exams 10/27/23 09:31 Completed Medical Decision Narrative: In summary, this patient is a 58-year-old male presenting to the Emergency Department for evaluation of traumatic left knee pain and swelling. Differential diagnoses considered include but are not limited to contusion, strain/sprain, meniscal injury, ligamentous injury, fracture. Ruling out the most morbid conditions drove assessment. It should be noted patient's history includes hypertension and hyperlipidemia which may or may not be at goal therapy. This complicates all aspects of care by increasing patient's risk for morbidity. On exam, the patient is well-appearing. Overall, low mechanism of injury and no evidence of infection on exam. He is neurovascularly intact. He still ambulatory. He does have very mild joint effusion with tenderness palpation over the medial joint line, suspicious for potential ligamentous versus meniscal injury. Workup included x-rays of the left knee. He was given oral Tylenol and IM Toradol for symptomatic improvement of pain. I independently interpreted x- ray prior to the radiologist read and noted no acute fracture. Please see their read for final interpretation. On reassessment, the patient is resting comfortably and remains neurovascularly intact in his lower extremity. At this time, I feel he is appropriate for dis charge home with instructions for supportive management and bracing as well as instructions for close follow-up with orthopedics. He was given prescription for ibuprofen. He declines need for crutches. Patient was discharged with strict return precautions and instructions for close follow-up with orthopedics. Critical Care Critical Care Time Critical Care Time: No
--- NOTE | 2023-10-27 10:51 | PC.NURSE ---
DR BARON AT BEDSIDE TO UPDATE PT
[2023-10-27 10:57] VITALS: BP 140/89; PULSE 72; RESP 16; TEMP 36.6; O2SAT 98
== END 2023-10-27 10:59 | disposition home or self-care (01) ==
PROVIDERS: Emergency Provider Emergency Medicine; PCP Nurse Practitioner Family
DX: M25.562 Pain in left knee (principal); M25.462 Effusion, left knee
CPT/HCPCS: 73562; 96372; 99283; J1885

== ENCOUNTER 2023-11-17 15:21 | Outpatient (CLI) | payer OTHER, SELFPAY ==
--- NOTE | 2023-11-17 15:22 | MR_ITS ---
FINAL REPORT CLINICAL HISTORY: Lt knee injury COMPARISON: None FINDINGS: Multiplanar MR imaging of the left knee was performed without contrast. There is a probable tear of the posterior horn of the medial meniscus. The lateral meniscus is intact. The anterior and posterior cruciate ligaments are intact. There is a partial tear of the proximal medial collateral ligament. The patellar and quadriceps tendons are intact. There is no evidence of fracture. An osteochondral lesion is noted of the trochlea measuring 7 mm. No focal abnormality is identified of the articular cartilage. A small joint effusion is seen. The musculature is intact. There is a small popliteal cyst. IMPRESSION: Partial tear of the proximal MCL. Probable tear posterior horn medial meniscus. 7 mm osteochondral lesion of the trochlea. Small joint effusion and small popliteal cyst. Reviewed, Interpreted and Dictated by Junior Vega III, MD Transcribed by Zuleika Vila Authenticated and [facility]
== END 2023-11-17 23:59 | disposition home or self-care (01) ==
LOC: RAD 15:22
PROVIDERS: PCP Nurse Practitioner Family; Visit Provider Orthopaedic Surgery
DX: M23.92 Unspecified internal derangement of left knee (principal)
CPT/HCPCS: 73721

== ENCOUNTER 2023-12-02 12:05 | Outpatient (CLI) | payer OTHER, SELFPAY ==
--- NOTE | 2023-12-02 12:41 | ECG_ITS ---
APPROVED REPORT Exam: Resting ECG HR:76 bpm ECG Measurements Heart Rate 76 AXES WI 158 P 32 QRSd 93 QRS -4 QT 364 T 29 QTc 394 Conclusion SINUS RHYTHM LOW QRS VOLTAGE IN PRECORDIAL LEADS [QRS DEFLECTION < 1.0 mV IN CHEST LEADS] Old septal changes ABNORMAL ECG UNCONFIRMED REPORT Electronically signed by : Ehsan Tomlinson MD 12/03/2023 17:16:47
[2023-12-02 12:54] LABS: Basophils # 0.1 K/mm3 (0-0.2); Basophils % 0.8 % (0.1-2.0); Eosinophils # 0.2 K/mm3 (0.0-0.4); Eosinophils % 2.3 % (0.1-12.0); Hematocrit 46.8 % (42.0-52.0); Hemoglobin 15.7 g/dL (14.1-18.0); Lymphocytes # 1.5 K/mm3 (0.7-4.5); Lymphocytes % 22.3 % (10-50); Mean Corpuscular HGB Conc 33.6 g/dL (31.8-35.4); Mean Corpuscular Hemoglobin 30.4 pg (27.0-31.2); Mean Corpuscular Volume 90.6 fl (80-94); Mean Platelet Volume 9.5 fl (7.4-10.4); Monocytes # 0.4 K/mm3 (0.1-1.0); Monocytes % 6.4 % (1.7-9.3); Neutrophils # 4.5 K/mm3 (1.8-7.8); Neutrophils % 68.1 % (37.0-80.0); Platelet Count 185 K/mm3 (142-424); Red Blood Count 5.17 M/mm3 (4.60-6.20); Red Cell Distribution Width 14.3 % (11.5-17.5); White Blood Count 6.6 K/mm3 (4.8-10.8)
[2023-12-02 13:13] LABS: Chloride 106 mmol/L (98-107); Potassium 4.2 mmoL/L (3.5-5.1); Sodium 139 mmol/L (136-145)
[2023-12-02 13:16] LABS: Anion Gap 8.2 mEq/L (5-15); Blood Urea Nitrogen 21 mg/dl (9-20); Calcium 9.3 mg/dl (8.4-10.2); Carbon Dioxide 29 mmol/L (22.0-30.0); Creatinine Clearance Estimated 110 mL/min (50-200); Estimated Glomerular Filt Rate 87 ml/min (>60); GFR (African American) 105 ML/MIN (>60); Glucose 113 mg/dl (74-100)
== END 2023-12-02 23:59 | disposition home or self-care (01) ==
LOC: PREOP 12:08
PROVIDERS: Nurse Anesthetist, Certified Registered; PCP Nurse Practitioner Family; Visit Provider Orthopaedic Surgery
DX: Z01.818 Encounter for other preprocedural examination (principal); M23.92 Unspecified internal derangement of left knee
CPT/HCPCS: 80048; 85025; 93005

== ENCOUNTER 2023-12-03 13:47 | Outpatient (CLI) | payer OTHER, SELFPAY ==
--- NOTE | 2023-12-03 13:51 | CA_ITS ---
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: TANISHA Aragon, RVS Ht: 5 ft 9 in Wt: 222lbs BSA: 2.16 BP: 119/84 mmHg Indications: Pre-Op clearance, HTN, HLD, Smoker, AbnEKG 2D Dimensions Left Atrium 3.39 cm LA Volume 77.10 mL LA Volume Index 35.578510 mL/m2 (M/F) 16-34 M-Mode Dimensions RVDd 1.61 cm (0.9-2.6) LA Diam 3.69 cm (1.9-4.0) LVDd 5.57 cm (3.5-5.7) LVDs 3.00 cm (3.5-5.7) IVSd 0.86 cm (0.6-1.1) PWd 0.86 cm (0.6-1.1) EF (Teich) 76.90% EPSs 0.86 cm FS 46.10% EDV (Teich) 151.80 mL ESV (Teich) 35.00 mL LV Diastology E Decel Time 123 (160-240 msec) E/A Ratio 0.63 MED A' 12.50 cm/s LAT A' 13.40 cm/s Aortic Valve PRASHANTH Index 1.30 cm2/m2 AoV Peak Jose. 122.0 (50-130 cm/s) AO Peak GR. 6.00 mmHg AO Mean GR. 2.90 (<5 mmHg) AO VTI 19.3 (18-25 cm) PRASHANTH (VTI) 2.87 (2.5-4.5 cm2) Mitral Valve MV A Velocity 89.0 (40-130 cm/s) E/A Ratio 0.63 Pulmonary Valve PV Peak Velocity 101.0 (50-150 cm/s) Left Ventricle The left ventricle is normal size. The left ventricular systolic function is normal. The left ventricular ejection fraction is within the normal range. Proximal septal thickening is noted. There is normal LV segmental wall motion. Transmitral Doppler flow pattern suggests impaired LV relaxation. LVEF is 55%. Right Ventricle The right ventricle is normal size. The right ventricular systolic function is normal. Atria The left atrium size is normal. The right atrium size is normal. There is no Doppler evidence of interatrial shunt. Aortic Valve The aortic valve opens well. Trace aortic regurgitation. There is no aortic valvular stenosis. Mitral Valve The mitral valve is normal in structure. No evidence of mitral valve stenosis. Trace mitral regurgitation. Tricuspid Valve The tricuspid valve leaflets are thin and pliable. Trace tricuspid regurgitation. There is insufficient TR jet to estimate RVSP. Pulmonic Valve The pulmonary valve is normal in structure. Trace pulmonic regurgitation. Great Vessels The aortic root is normal in size. The ascending aorta is normal in size. IVC is normal in size and collapses >50% with inspiration. Other Information Study Quality: Adequate Conclusion Normal biventricular systolic function. No significant valvular stenosis or regurgitation. Electronically signed by : Rosanna Harman MD 12/09/2023 09:14:44
== END 2023-12-03 23:59 | disposition home or self-care (01) ==
LOC: RT 13:48
PROVIDERS: PCP Nurse Practitioner Family; Visit Provider Internal Medicine
DX: Z01.810 Encounter for preprocedural cardiovascular examination (principal); R94.31 Abnormal electrocardiogram [ECG] [EKG]; I25.10 Atherosclerotic heart disease of native coronary artery without angina pectoris; E78.5 Hyperlipidemia, unspecified; F17.210 Nicotine dependence, cigarettes, uncomplicated
CPT/HCPCS: 93306

== ENCOUNTER 2024-06-16 09:18 | Outpatient (CLI) | payer BC, SELFPAY ==
[2024-06-16 13:18] LABS: Basophils % 0.5 % (0.1-2.0); Eosinophils # 0.1 K/mm3 (0.0-0.4); Eosinophils % 1.9 % (0.1-12.0); Hematocrit 45.4 % (42.0-52.0); Hemoglobin 15.1 g/dL (14.1-18.0); Lymphocytes % 16.1 % (10-50); Mean Corpuscular HGB Conc 33.3 g/dL (31.8-35.4); Mean Corpuscular Volume 87.3 fl (80-94); Mean Platelet Volume 11.8 fl (7.4-10.4); Monocytes # 0.5 K/mm3 (0.1-1.0); Monocytes % 8.1 % (1.7-9.3); Neutrophils # 4.7 K/mm3 (1.8-7.8); Neutrophils % 72.8 % (37.0-80.0); Platelet Count 199 K/mm3 (142-424); Red Cell Distribution Width 13.5 % (11.5-17.5); White Blood Count 6.4 K/mm3 (4.8-10.8)
[2024-06-16 13:58] LABS: Microalbumin/Creatinine Ratio 13.7
[2024-06-16 14:03] LABS: Creatinine,Urine Random 106 mg/dL (Not Estab.)
[2024-06-16 14:04] LABS: Alanine Aminotransferase 45 U/L (12-78); Albumin Level 4.9 g/dl (3.5-5.0); Albumin/Globulin Ratio 1.9 (1.1-1.8); Alkaline Phosphatase 73 U/L (38-126); Anion Gap 12.5 mEq/L (5-15); Aspartate Amino Transferase 38 U/L (17-59); Bilirubin,Total 0.4 mg/dl (0.2-1.3); Blood Urea Nitrogen 20 mg/dl (9-20); Calcium 9.6 mg/dl (8.4-10.2); Carbon Dioxide 26 mmol/L (22.0-30.0); Chloride 104 mmol/L (98-107); Chol/HDL Ratio 6.5 (1-3.5); Cholesterol 227 mg/dl (140-200); Estimated Glomerular Filt Rate 77 ml/min (>60); GFR (African American) 93 ML/MIN (>60); Globulin 2.6 g/dL (1.3-3.2); Glucose 98 mg/dl (74-100); HDL Cholesterol 35 mg/dl (40-60); Magnesium 2.1 mg/dl (1.6-2.3); Potassium 4.5 mmoL/L (3.5-5.1); Sodium 138 mmol/L (136-145); Total Protein,Serum 7.5 g/dl (6.3-8.2); Triglycerides 280 mg/dl (30-150); VLDL Cholesterol 56 mg/dL (0-40)
[2024-06-16 14:16] LABS: C-Reactive Protein 1.9 mg/L (0-4)
[2024-06-16 14:36] LABS: Prostate Specific Ag Screen 0.6 ng/ml (0.0-4.0); Thyroid Stimulating Hormone 3.23 uIU/mL (0.465-4.68)
[2024-06-17 07:21] LABS: Triiodothyronine (T3) Free 3.9 pg/mL (2.0-4.4)
== END 2024-06-16 23:59 | disposition home or self-care (01) ==
LOC: LAB.DROPOF 06-17 10:30
PROVIDERS: PCP Nurse Practitioner Family; Visit Provider Nurse Practitioner Family
DX: I10 Essential (primary) hypertension (principal); R60.9 Edema, unspecified; N28.9 Disorder of kidney and ureter, unspecified; E78.5 Hyperlipidemia, unspecified; Z12.5 Encounter for screening for malignant neoplasm of prostate
CPT/HCPCS: 80053; 80061; 82043; 82570; 83735; 84443; 84481; 85025; 86140; G0103

== ENCOUNTER 2025-01-24 09:50 | Observation (INO) | payer BC, SELFPAY ==
[2025-01-24] VITALS (10 sets, daily range): BP systolic 123–156; BP diastolic 71–99; PULSE 56–66; RESP 12–19; TEMP 36.4–36.9; O2SAT 97–100; BMI 30.8; BMI 29.9
--- NOTE | 2025-01-24 09:53 | ECG_ITS ---
APPROVED REPORT Exam: Resting ECG HR:59 bpm ECG Measurements Heart Rate 59 AXES NJ 170 P 43 QRSd 93 QRS 39 QT 422 T 29 QTc 421 Conclusion SINUS BRADYCARDIA SEPTAL MYOCARDIAL INFARCTION , OF INDETERMINATE AGE [40+ ms Q WAVE IN V1/V2] ABNORMAL ECG UNCONFIRMED REPORT Electronically signed by : FAVIOLA GOTTLIEB, 01/25/2025 02:49:07
--- NOTE | 2025-01-24 10:16 | XR_ITS ---
FINAL REPORT CLINICAL HISTORY: intermittant L sided CP and night sweats x2wks. pt states his pain is pressure/sharp in nature and 6/10. COMPARISON: 03/29/2018 FINDINGS: The lungs are hypoinflated. No acute pulmonary opacity is present. There is no evidence of effusion or pneumothorax. Mediastinum is unremarkable. Heart size is normal. IMPRESSION: No acute abnormality. Reviewed, Interpreted and Dictated by Kimani Villegas MD Transcribed by Sharri Romo Authenticated and [facility]
--- NOTE | 2025-01-24 10:22 | ED_ITS ---
<Statement entered by Veronica Macario MD - 01/24/25 14:47> I was consulted by the SULAIMAN, and we discussed the complexity of the problems being addressed. I approved the treatment and management plan for this patient's care in the emergency department, thus performing a substantive portion of the medical decision making. Veronica Macario MD, HARRIETT, FACEP Discharge Plan Disposition Patient Disposition: Admitted Clinical Impressions Clinical Impression: Pancreatitis Discharge ED Provider: Veronica Macario HPI General Chief Complaint: Chest Pain Stated Complaint: Chest Pain Time Seen by Provider: 01/24/25 10:02 Mode of Arrival: Ambulatory Source of Information: Patient Description of Symptoms (Recalled from ER Triage Doc. by RN): pt c/o intermittant L sided CP and night sweats x2wks. pt states his pain is pressure/sharp in nature and 6/10. Activity does not seem to affect his pain, he states there is no pattern. pt reports having a cardiac stent placed 3yrs ago. History of Present Illness HPI narrative: 60-year-old male presents to the ED for complaint of 2 weeks of intermittent chest pain that is sharp. He says it comes and goes. It does not cause any shortness of breath. It does cause nausea and dry heaves. He says that is better this morning but he still been having some dry heaves off and on. He did eat some toast this morning without any problem. Other symptoms include 2 weeks of night sweats that have also been coming and going. He says this is probably the worst of his illness over the last few weeks as the night sweats. He has had no fevers. He has not no vomiting, no diarrhea, no abdominal pain. Patient complains of no other symptoms. 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 Patient has history of a stent in 2020 he believes. He had this done by Dr. Puga. He has had bilateral knee replacements. He has not had any medications today. Patient states that he cannot take any pain medication as confuses him. Related Data Home Medications ?Medication ?Instructions ?Recorded ?Confirmed aspirin 81 mg chewable tablet 81 mg PO DAILY 03/29/22 01/24/25 cyanocobalamin (vitamin B-12) 5,000 mcg PO DAILY 10/2901/24/25 5,000 mcg capsule multivitamin 1 tab PO DAILY 10/29/2401/06 omega 9-dhb-awl-fish oil 1,000 mg 1 cap PO DAILY 10/2901/24/25 (120 mg-180 mg) capsule (Fish Oil) losartan 50 mg-hydrochlorothiazide 1 tab PO DAILY 01/0601/24/25 12.5 mg tablet Allergies Allergy/AdvReac Type Severity Reaction Status Date / Time amoxicillin Allergy Mild Diarrhea Verified 01/24/25 09:17 lisinopril Allergy Mild dry cough Verified 01/24/25 09:17 Opioids - Morphine Analogues AdvReac Intermediate Confusion Verified 01/24/25 09:17 [facility] Disclaimer: The information contained in this section may have been updated after the patient was seen, as this information can be updated by other users. Medical History CAD (coronary artery disease) HLD (hyperlipidemia) Deep as on atorvastatin in the past, as his TG is high and his HDL is low. However this was stopped by his on call for an unknown reason. We will recheck his lipid panel and go from there. HTN (hypertension) Surgical History H/O left knee surgery left ACL tear History of cholecystectomy Hx of appendectomy Hx of heart artery stent Hx of knee surgery right Family History Other Family history of cancer Family hx-kidney disease Social History Smoking Status: Current every day smoker tobacco type: cigarettes packs per day: 1 pack-years: 31 smoking status start date: 19 yo until 31 yo started back around 41 yo through present years smoked: 31 quit status: has quit before alcohol intake: current alcohol intake frequency: holidays/special occasions only substance use type: denies use current occupational status: employed Travel in the last 8 weeks?: None household members: spouse housing: house marital status: education level: high school caffeine: Yes special marilia needs: No agree to transfusion: No do you feel safe at home: Yes victim of physical abuse: No victim of emotional abuse: No victim of sexual abuse: No would you like helpful sources: No Have you lived/traveled outside [place] in past 30 days?: No Contact w/someone who lives/traveled outside US past 30 days?: No Exposure to someone with infectious disease in past 14 days?: No Do you have a fever (greater than 100.4 F or 38 C)?: No Have you tested positive for COVID-19?: No Exposed to someone with COVID-19 in past 14 days?: No Do you have a sore throat?: No Do you have a cough?: No Do you have any weakness?: No Do you have any diarrhea?: No Are you experiencing any unusual bleeding?: No Do you have any muscle aches/pain?: No Do you have any abdominal pain?: No Are you experiencing loss of taste or smell?: No Other Medical History Have you received the Flu Vaccine for this season: No Have you received the Pneumonia Vaccine: No ROS Obtained: Yes Systems reviewed as appropriate & no additional complaints except as documented Constitutional Constitutional: Reports as per HPI Physical Exam General General appearance: alert and in no apparent distress Head Head exam: normocephalic Eye Eye exam: Present normal appearance and PERRL ENT ENT exam: Present mucous membranes moist Neck Neck exam: Present trachea midline Chest Chest inspection: Present symmetric chest wall rise Respiratory Respiratory exam: Present normal lung sounds bilaterally Cardiovascular Cardiovascular exam: Present regular rate, normal rhythm, normal heart sounds, +S1 and +S2 Abdominal Exam Abdominal exam: Present soft and normal bowel sounds Extremities Exam Extremities exam: Present normal inspection, full ROM and normal capillary refill Back Exam Back exam: Present full ROM Neurological Exam Neurological exam: Present alert and oriented X3 Psychiatric Psychiatric exam: Present normal affect and normal mood Skin Skin exam: Present warm and dry HEART Score HEART Score HEART Score assessment performed?: Yes History (anamnesis): Slightly suspicious ECG: Normal Age: 45-65 years Risk factors: 1-2 risk factors Troponin: </= normal limit HEART Score: 2 Critical Care Critical Care Time Critical Care Time: No Medical Decision Making James Inquiry Pt receiving controlled substance: No James was queried for this patient: No Vital Signs Vital Signs: 01/24/25 09:55 01/24/25 10:03 01/24/25 10:30 Temperature 98.4 F Temperature Source Oral Pulse Rate 64 Pulse Rate [Left] 64 Respiratory Rate 19 18 18 Blood Pressure 134/91 H Blood Pressure [Right Arm] 156/99 H Blood Pressure Mean Blood Pressure Mean [Right Arm] 118 Blood Pressure Source Blood Pressure Source [Right Arm] Automatic Cuff Blood Pressure Position Blood Pressure Position [Right Arm] Sitting 02 Sat by Pulse Oximetry 98 98 97 Oxygen Delivery Method Room Air 01/24/25 11:00 01/24/25 11:28 01/24/25 11:30 Temperature Temperature Source Pulse Rate 56 L 61 Pulse Rate [Left] Respiratory Rate 16 18 16 Blood Pressure 126/86 129/93 H 128/90 Blood Pressure [Right Arm] Blood Pressure Mean 102 Blood Pressure Mean [Right Arm] Blood Pressure Source Blood Pressure Source [Right Arm] Blood Pressure Position Blood Pressure Position [Right Arm] 02 Sat by Pulse Oximetry 100 99 Oxygen Delivery Method 01/24/25 13:39 Temperature 98.3 F Temperature Source Oral Pulse Rate 60 Pulse Rate [Left] Respiratory Rate 18 Blood Pressure 132/88 Blood Pressure [Right Arm] Blood Pressure Mean Blood Pressure Mean [Right Arm] Blood Pressure Source Automatic Cuff Blood Pressure Source [Right Arm] Blood Pressure Position Sitting Blood Pressure Position [Right Arm] 02 Sat by Pulse Oximetry Oxygen Delivery Method Room Air Lab Data Labs: Lab Results 01/24/25 10:00: WBC 7.4, RBC 5.09, Hgb 14.8, Hct 44.3, MCV 87.0, MCH 29.1, MCHC 33.4, RDW 13.2, Plt Count 181, MPV 11.2 H, Neut % (Auto) 61.3, Lymph % (Auto) 27.3, Sebastian % (Auto) 8.2, Eos % (Auto) 2.4, Baso % (Auto) 0.4, Neut # (Auto) 4.5, Lymph # (Auto) 2.0, Sebastian # (Auto) 0.6, Eos # (Auto) 0.2, Baso # (Auto) 0.0, Sodium 138, Potassium 4.4, Chloride 101, Carbon Dioxide 31 H, Anion Gap 10.4, B UN 27 H, Creatinine 1.00, Estimated Creat Clear 110, Estimated GFR 76, Est GFR ( Amer) 93, Glucose 104 H, Calcium 9.0, Magnesium 2.2, Total Bilirubin 0.5, AST 30, ALT 38, Alkaline Phosphatase 71, Troponin I < 0.01, Total Protein 7.7, Albumin 4.3, Globulin 3.4 H, Albumin/Globulin Ratio 1.3, Triglycerides 242 H, Lipase 1229 H, HCV Ab ARUNA w/Rflx PCR Qn Negative, HIV Ag/Ab Combo Qual Negative 01/24/25 10:40: SARS-CoV-2 (PCR) Not detected, Influenza A Untype (PCR) Not detected, Influenza Type B (PCR) Not detected 01/24/25 12:40: Troponin I < 0.01 01/24/25 10:00 01/24/25 10:00 Response Orders (Tests/Meds): ED MEDICATIONS Generic Name Dose Route Start Last Admin Trade Name Anh PRN Reason Stop Dose Admin Acetaminophen 650 mg 01/24/25 13:18 Acetaminophen 325mg Tab PO 02/23/25 13:17 Q4HP PRN Fever or Mild Pain (1-3) Enoxaparin Sodium 40 mg 01/25/25 09:00 Enoxaparin 40mg/0.4ml Syringe SUBCUT 02/24/25 08:59 DAILY MINI Nicotine 21 mg 01/24/25 13:18 Nicotine 21mg/24hr Patch TD 02/23/25 13:17 DAILYP PRN Nicotine Cravings Ondansetron HCl 4 mg 01/24/25 13:18 Ondansetron 4mg/2ml Vial IV 02/23/25 13:17 Q8HP PRN Nausea Sodium Chloride 8 ml 01/24/25 10:16 01/24/25 10:35 Sodium Chloride 0.9% 10ml Vial IV 02/23/25 10:15 8 ml NEEDED PRN Administration dilute pepcid Discontinued Medications Generic Name Dose Route Start Last Admin Trade Name Freq PRN Reason Stop Dose Admin Acetaminophen 1,000 mg 01/24/25 10:38 01/24/25 11:30 Acetaminophen 1,000mg/100ml Vial IV 01/24/25 10:39 1,000 mg ONCE ONE Administration Aspirin 325 mg 01/24/25 10:16 01/24/25 10:35 Aspirin 325mg Tablet PO 01/24/25 10:17 325 mg ONCE ONE Administration Famotidine 20 mg 01/24/25 10:16 01/24/25 10:35 Famotidine 20mg/2ml Vial IV 01/24/25 10:17 20 mg ONCE ONE Administration Iopamidol 75 ml 01/24/25 11:18 01/24/25 11:19 Iopamidol-370 (76%);100ml Bottle IV 01/24/25 11:19 75 ml ONCE ONE Administration Ketorolac Tromethamine 30 mg 01/24/25 10:38 01/24/25 11:29 Ketorolac 30mg/Ml Vial IV 01/24/25 10:39 30 mg ONCE ONE Administration Ondansetron HCl 4 mg 01/24/25 10:16 01/24/25 10:34 Ondansetron 4mg/2ml Vial IV 01/24/25 10:17 4 mg ONCE ONE Administration Sodium Chloride 10 ml 01/24/25 11:18 01/24/25 11:19 Sodium Chloride 0.9% 10ml Syr (Rad Only) IV 02/23/25 11:17 10 ml NEEDED PRN Administration Maintain IV Site ORDERS Category Date Time Status CT abdomen pelvis w con Stat Cat Scan 01/24/25 10:41 Completed Chest XR -- portable [XR chest portable] Stat Exams 01/24/25 10:16 Completed US RUQ [US abdomen limited] Stat Exams 01/24/25 13:18 Ordered CBC [Complete Blood Count Auto Diff] Stat Lab 01/24/25 10:00 Completed Complete Blood Count Auto Diff AMLAB Lab 01/25/25 06:00 Ordered Comprehensive Metabolic Panel AMLAB Lab 01/25/25 06:00 Ordered Comprehensive Metabolic Panel Stat Lab 01/24/25 10:00 Completed HIV Combo Stat Lab 01/24/25 10:00 Completed Hemoglobin A1C Routine Lab 01/24/25 10:00 Received Hepatitis C Ab Qual. W/ RFX Stat Lab 01/24/25 10:00 Completed Lipase Stat Lab 01/24/25 10:00 Completed Magnesium AMLAB Lab 01/25/25 06:00 Ordered Magnesium Stat Lab 01/24/25 10:00 Completed Rapid PCR Covid and Flu A/B Stat Lab 01/24/25 10:40 Completed Triglycerides Stat Lab 01/24/25 10:00 Completed Trop I [Troponin I] Stat Lab 01/24/25 10:00 Completed Troponin I Q3H Lab 01/24/25 12:40 Completed Troponin I Q3H Lab 01/24/25 16:30 Ordered MDM Narrative Medical Decision Narrative: patient is a 60-year-old presenting to the emergency department for evaluation of chest pain, dry heaves and night sweats. Patient is hemodynamically stable and nontoxic-appearing upon arrival, afebrile. Differential diagnosis includes ACS, viral illness, among others. Workup will be conducted with hematologic labs, specific imaging, provocative tests. Initial inventions include analgesics, aspirin. Initial workup reviewed by me hematologic lab Normal white count, BUN was 27 normal creatinine. Troponin was negative x 2, triglycerides were 242 lipase was 1229. He is not alcoholic is triglycerides were pretty elevated but not to the point of pancreatitis level. CT scan showed no acute findings according to radiology. Discussed with Dr. Macario and he wants to admit patient for pancreatitis. I talked to Livia Ramos APRN who will admit patient for to [facility].
[2025-01-24 10:24] LABS: Hematocrit 44.3 % (42.0-52.0); Hemoglobin 14.8 g/dL (14.1-18.0); Immature Granulocytes % 0.4 %; Mean Corpuscular HGB Conc 33.4 g/dL (31.8-35.4); Mean Corpuscular Hemoglobin 29.1 pg (27.0-31.2); Mean Corpuscular Volume 87.0 fl (80-94); Nucleated Red Blood Cells % 0 %; Platelet Count 181 K/mm3 (142-424); Red Blood Count 5.09 M/mm3 (4.60-6.20); Red Cell Distribution Width-SD 42.1 fL; White Blood Count 7.4 K/mm3 (4.8-10.8)
[2025-01-24 10:27] LABS: Albumin Level 4.3 g/dl (3.5-5.0); Chloride 101 mmol/L (98-107); Potassium 4.4 mmoL/L (3.5-5.1); Sodium 138 mmol/L (136-145)
[2025-01-24 10:29] LABS: Alanine Aminotransferase 38 U/L (12-78); Anion Gap 10.4 mEq/L (5-15); Aspartate Amino Transferase 30 U/L (17-59); Blood Urea Nitrogen 27 mg/dl (9-20); Carbon Dioxide 31 mmol/L (22.0-30.0); Creatinine Clearance Estimated 110 mL/min (50-200); Creatinine,Serum 1.00 mg/dl (0.66-1.25); Estimated Glomerular Filt Rate 76 ml/min (>60); GFR (African American) 93 ML/MIN (>60)
[2025-01-24 10:30] LABS: Albumin/Globulin Ratio 1.3 (1.1-1.8); Alkaline Phosphatase 71 U/L (38-126); Bilirubin,Total 0.5 mg/dl (0.2-1.3); Calcium 9.0 mg/dl (8.4-10.2); Globulin 3.4 g/dL (1.3-3.2); Glucose 104 mg/dl (74-100); Magnesium 2.2 mg/dl (1.6-2.3); Total Protein,Serum 7.7 g/dl (6.3-8.2)
--- OUTSIDE RECORDS SUMMARY | 2025-01-24 10:32 | XMS_ITS | Clinical Summary ---
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 Medications Administered No information available. Allergies, Adverse Reactions, Alerts Observed no known allergies at Results Date Name Value Unit Range Flag Description Office Visit: NEW Physical - - Ss-explained 30-120 / DG/LB/4 room 1 GLUCOSE, URN negative Glucose [Mass/volume] in Urine by Test strip BILIRUBIN UR negative Bilirub in.total [Presence] in Urine by Test strip KETONES URN negative Ketones [Mass/volume] in Urine by Test strip SPEC GR URIN 1.025 Specific gravity of Urine by Test strip BLOOD UR DIP negative blood i n urine (hemoglobin) by dipstick PH URINE 6.0 pH of Urine by Test strip PROTEIN, URN negative protein , urine, semiquantitative (dipstick) UROBILINOGEN 0.2 Urobilin ogen [Presence] in Urine by Test strip NITRITE URN negative Nitrite [Presence] in Urine by Test strip WBC DIPSTK U negative Leukocy te esterase [Presence] in Urine by Test strip Plan of Care No information available. Procedures No information available. Vital Signs Date Name Value Unit Description BMI (Body Mass Index) 28.87 kg/m2 Bod y Mass Index (Ratio) Body Temperature 97.9 [degF] temperat ure E&M Body Temperature 36.6 Liset temperat ure in centigrade E&M BP Diastolic 78 mm[Hg] blood pressu re, diastolic BP Systolic 128 mm[Hg] blood pressur e, systolic Heart Rate 71 /min pulse rate Height 175.26 cm height in cent imeters E&M Height 69 [in_us] height E&M Weight Measured 194.8 [lb_av] weight E& M Weight Measured 194.8 [lb_av] weight E& M Weight Measured 88.55 kg weight in kilograms E&M Immunizations No information available. Advance Directives No information available.
--- OUTSIDE RECORDS SUMMARY | 2025-01-24 10:33 | XMS_ITS | Clinical Summary ---
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
--- OUTSIDE RECORDS SUMMARY | 2025-01-24 10:33 | XMS_ITS | Referral Summary ---
Author Organization [employer] ([place], [place], [place], [place]) Address [address] [place] [address] Care Team Providers Care Corporate Development Associate Name Role Phone Unavailable Primary Care Provider [...]
[2025-01-24] MEDS: ONDANSETRON 4MG/2ML VIAL 4 MG IV (10:34)
[2025-01-24] MEDS: FAMOTIDINE 20MG/2ML VIAL 20 MG IV (10:35)
[2025-01-24] MEDS: ASPIRIN 325MG TABLET 325 MG PO (10:35)
[2025-01-24] MEDS: SODIUM CHLORIDE 0.9% 10ML VIAL 8 ML IV (10:35)
[2025-01-24 10:37] LABS: Lipase 1229 U/L (23-300)
--- NOTE | 2025-01-24 10:41 | CT_ITS ---
FINAL REPORT TECHNIQUE: Oral and IV contrast enhanced exam This study was performed with techniques to keep radiation doses as low as reasonably achievable, (ALARA). Individualized dose reduction techniques using automated exposure control or adjustment of mA and/or kV according to the patient's size were employed. CLINICAL HISTORY: abdominal pain COMPARISON: None FINDINGS: Abdomen: Lung bases are clear. The gallbladder is surgically absent. Liver has an unremarkable CT appearance. The spleen, pancreas and adrenal glands are unremarkable. Kidneys show no mass or obstruction. No bowel obstruction or fluid collection is seen. There is a small umbilical hernia containing fat. Pelvis: The appendix is not visualized. Pelvic bowel loops are unremarkable. No fluid collection or adenopathy is seen. There is mild enlargement of the prostate gland. IMPRESSION: Unremarkable CT evaluation of the abdomen and pelvis Reviewed, Interpreted and Dictated by Kimani Villegas MD Transcribed by Sharri Romo Authenticated and [facility]
[2025-01-24 10:44] LABS: Coronavirus 19, PCR Not Detected (NotDetected); Influenza A, PCR Not Detected (NotDetected); Influenza B, PCR Not Detected (NotDetected)
[2025-01-24 10:55] LABS: Troponin I < 0.01 ng/ml (0.00-0.034)
[2025-01-24 10:59] LABS: Triglycerides 242 mg/dl (30-150)
[2025-01-24] MEDS: IOPAMIDOL-370 (76%);100ML BOTTLE 75 ML IV (11:19)
[2025-01-24] MEDS: SODIUM CHLORIDE 0.9% 10ML SYR (RAD ONLY) 10 ML IV (11:19)
[2025-01-24] MEDS: KETOROLAC 30MG/ML VIAL 30 MG IV (11:29)
[2025-01-24] MEDS: ACETAMINOPHEN 1,000MG/100ML VIAL 1000 MG IV (11:30)
[2025-01-24 11:49] LABS: Hepatitis C Ab Qual. W/ RFX NEGATIVE (Negative)
--- NOTE | 2025-01-24 12:40 | PC.NURSE ---
REPEAT TROP SENT, PT UPDATED ON POC. NO NEEDS AT THIS TIME
--- NOTE | 2025-01-24 13:18 | US_ITS ---
FINAL REPORT TECHNIQUE: Multiple transverse and longitudinal images CLINICAL HISTORY: pancreatitis COMPARISON: CT abdomen and pelvis 01/24/2025 FINDINGS: The gallbladder is absent. No biliary ductal dilatation is appreciated. No fluid collections are seen. Fatty infiltration of the liver is present. Limited portions of the right kidney are unremarkable. Pancreas is largely obscured. IMPRESSION: 1. The gallbladder is absent. No biliary ductal dilatation is present. 2. Fatty infiltration of the liver. Reviewed, Interpreted and Dictated by Kimani Villegas MD Transcribed by Sharri Romo Authenticated and [facility]
--- NOTE | 2025-01-24 13:19 | PC.NURSE ---
I notified of the need for a bed to admit the pt for pancreatitis to the hospitalist.
--- NOTE | 2025-01-24 13:28 | P.HP_ITS ---
<Statement entered by Lucio Turner MD - 01/26/25 09:46> Discussed patient with nurse practitioner. Personally reviewed chart, imaging, and plan of care. Agree with findings and care plan as documented. History of Present Illness *Admission Date: 01/24/25 *Reason for visit:: nausea, night sweats, fatigue *History of present illness: Mr. Leone is a 60-year-old male who presented to his PCP office today with complaints of intermittent and at times continuous, sharp abdominal pain, nausea, increased fatigue, left chest pain, night sweats. 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 He denies shortness of breath, vomiting, diarrhea, edema, fever, known sick contacts. He does state that he has a cardiac history with 1 stent placed in 2018. He denies alcohol, drug, tobacco use. Emergency department workup was significant for elevated triglycerides at 242, and elevated lipase at 1229. Patient states that he has had his gallbladder removed. Denies use of any GLP-[address] scan showed no acute findings, chest x-ray unremarkable. Right upper quadrant ultrasound shows absent gallbladder, no ductal dilation is present, fatty infiltration of the liver. Patient has no focal tenderness on exam. Vital signs are stable. Patient tolerating p.o. diet without issues at this time. [facility] Disclaimer: The information contained in this section may have been updated after the patient was seen, as this information can be updated by other users. Medical History CAD (coronary artery disease) HLD (hyperlipidemia) Deep as on atorvastatin in the past, as his TG is high and his HDL is low. However this was stopped by his managing editor for an unknown reason. We will recheck his lipid panel and go from there. HTN (hypertension) Surgical History H/O left knee surgery left ACL tear History of cholecystectomy Hx of appendectomy Hx of heart artery stent Hx of knee surgery right Family History Other Family history of cancer Family hx-kidney disease Social History Smoking Status: Current every day smoker tobacco type: cigarettes packs per day: 1 pack-years: 31 smoking status start date: 19 yo until 31 yo started back around 41 yo through present years smoked: 31 quit status: has quit before alcohol intake: current alcohol intake frequency: holidays/special occasions only substance use type: denies use current occupational status: employed Travel in the last 8 weeks?: None household members: spouse housing: house marital status: education level: high school caffeine: Yes special marilia needs: No agree to transfusion: No do you feel safe at home: Yes victim of physical abuse: No victim of emotional abuse: No victim of sexual abuse: No would you like helpful sources: No Other Medical History Have you received the Flu Vaccine for this season: No Have you received the Pneumonia Vaccine: No Review of Systems Constitutional Constitutional: Denies chills, Reports fatigue, Denies fever(s), Reports lethargy, Reports night sweats and Denies weight loss Eyes Eyes: Denies blurry vision and Denies change in vision ENT Ears, Nose, Mouth, and Throat: Denies sinus pressure and Denies sore throat *Cardiovascular Cardiovascular: Reports chest pain, Reports dyspnea, Denies lightheadedness and Denies palpitations *Respiratory Respiratory: Denies chest congestion, Denies cough and Reports dyspnea *Gastrointestinal Gastrointestinal: Denies heartburn, Denies loose stools, Reports nausea and Denies vomiting Endocrine Endocrine: Reports fatigue and Denies palpitations Meds Home Medications and Allergies Home Medications ?Medication ?Instructions ?Recorded ?Confirmed ?Type aspirin 81 mg chewable tablet 81 mg PO DAILY 03/29/22 01/24/25 History cyanocobalamin (vitamin B-12) 5,000 mcg PO DAILY 10/2901/24/25 History 5,000 mcg capsule multivitamin 1 tab PO DAILY 10/29/2401/06 History omega 5-lgv-jop-fish oil 1,000 mg 1 cap PO DAILY 10/2901/24/25 History (120 mg-180 mg) capsule (Fish Oil) losartan 50 mg-hydrochlorothiazide 1 tab PO DAILY 01/0601/24/25 History 12.5 mg tablet atorvastatin 40 mg tablet (Lipitor) 40 mg PO HS #30 ta bs 01/25/25 Rx New Prescriptions to Start Prescriptions: atorvastatin [Lipitor] Livia Ramos Allergies Allergy/AdvReac Type Severity Reaction Status Date / Time amoxicillin Allergy Mild Diarrhea Verified 01/24/25 09:17 lisinopril Allergy Mild dry cough Verified 01/24/25 09:17 Opioids - Morphine Analogues AdvReac Intermediate Confusion Verified 01/24/25 09:17 Exam Data for Last 24 hours Vital signs and Labs for Last 24 Hours: Temp Pulse Resp BP Pulse Ox O2 Del Method 98.4 F 61 16 128/90 99 Room Air 01/24/25 09:55 01/24/25 11:30 01/24/25 11:30 01/24/25 11:30 01/24/25 11:30 01/24/25 09:55 Laboratory Results - last 24 hr 01/24/25 10:00: WBC 7.4, RBC 5.09, Hgb 14.8, Hct 44.3, MCV 87.0, MCH 29.1, MCHC 33.4, RDW 13.2, Plt Count 181, MPV 11.2 H, Neut % (Auto) 61.3, Lymph % (Auto) 27.3, [place] % (Auto) 8.2, Eos % (Auto) 2.4, Baso % (Auto) 0.4, Neut # (Auto) 4.5, Lymph # (Auto) 2.0, [place] # (Auto) 0.6, Eos # (Auto) 0.2, Baso # (Auto) 0.0, Sodium 138, Potassium 4.4, Chloride 101, Carbon Dioxide 31 H, Anion Gap 10.4, BUN 27 H, Creatinine 1.00, Estimated Creat Clear 110, Estimated GFR 76, Est GFR ( Amer) 93, Glucose 104 H, Calcium 9.0, Magnesium 2.2, Total Bilirubin 0.5, AST 30, ALT 38, Alkaline Phosphatase 71, Troponin I < 0.01, Total Protein 7.7, Albumin 4.3, Globulin 3.4 H, Albumin/Globulin Ratio 1.3, Triglycerides 242 H, Lipase 1229 H, HCV Ab ARUNA w/Rflx PCR Qn Negative, HIV Ag/Ab Combo Qual Negative 01/24/25 10:40: SARS-CoV-2 (PCR) Not detected, Influenza A Untype (PCR) Not detected, Influenza Type B (PCR) Not detected I & O for Last 24 hours: Intake & Output 01/21/25 01/22/25 01/23/25 01/24/25 23:59 23:59 23:59 23:59 Weight 97.522 kg Constitutional Constitutional: no acute distress, obese and cooperative *Routine HEENT Exam Head: Present normocephalic Eye: Present EOMI and PERRL ENT: Present mucous membranes moist *Routine Neck Exam Neck: Present supple; Absent lymphadenopathy *Routine Respiratory Exam Respiratory: Present CTA bilaterally, normal respiratory effort, able to speak in complete sentences and symmetric chest movement; Absent wheezes or crackles *Routine Cardiovascular Exam Cardiovascular: Present RRR; Absent murmur *Routine Abdominal Exam Abdominal: Present soft and normoactive bowel sounds; Absent tenderness *Routine Rectal Exam Rectal:: deferred *Routine Genitalia Exam Genitalia:: deferred *Routine Extremities Exam Extremities: Present full ROM; Absent cyanosis, clubbing or edema *Routine Skin Exam Skin: Present intact, dry and warm; Absent rash *Routine Neurological Exam Neurological: Present alert, oriented X3, vision grossly intact, hearing grossly intact and normal speech Assessment and Plan *Assessment and plan (1) Pancreatitis: Status: Acute Category: Medical Code(s): K85.90 - Acute pancreatitis without necrosis or infection, unspecified (2) Fatigue: Status: Acute Category: Medical Code(s): R53.83 - Other fatigue (3) Hypertension: Status: Acute Qualifiers: Hypertension type: essential hypertension Qualified Code(s): I10 - Essential (primary) hypertension Category: Medical Code(s): I10 - Essential (primary) hypertension (4) Obesity (BMI 30.0-34.9): Status: Acute Category: Medical Code(s): E66.811 - Obesity, class 1 (5) CAD (coronary artery disease): Status: Chronic Qualifiers: Associated angina: without angina Coronary Disease-Associated Artery/Lesion type: [place] artery [place] vs. transplanted heart: [place] heart Qualified Code(s): I25.10 - Atherosclerotic heart disease of [place] coronary artery without angina pectoris Category: Medical Code(s): I25.10 - Atherosclerotic heart disease of [place] coronary artery without angina pectoris Plan Mr. Leone is a 60-year-old male who presented to his PCP office today with complaints of intermittent and at times continuous, sharp abdominal pain, nausea, increased fatigue, left chest pain, night sweats. 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 He denies shortness of breath, vomiting, diarrhea, edema, fever, known sick contacts. He does state that he has a cardiac history with 1 stent placed in 2018. He denies alcohol, drug, tobacco use. Emergency department workup was significant for elevated triglycerides at 242, and elevated lipase at 1229. Patient states that he has had his gallbladder removed. Denies use of any GLP-1 medications. [address] scan showed no acute findings, chest x-ray unremarkable. Lab work unremarkable, serial troponins negative, kidney function within normal limits, no anemia, no leukocytosis. Right upper quadrant ultrasound shows absent gallbladder, no ductal dilation is present, fatty infiltration of the liver. Patient has no focal tenderness on exam. Vital signs are stable. Patient tolerating p.o. diet without issues at this time. Hospital medicine was consulted for admission due to elevated li pase, I agreed to admit the patient. Plan of care as follows: #Pancreatitis #Elevated lipase ? At this time patient has no complaints of nausea or vomiting. Regular diet ordered, patient states he has been able to tolerate p.o. intake. Does complain of intermittent night sweats, fatigue, chest discomfort, stabbing abdominal pain intermittently. Currently has no abdominal pain, no pain to palpation. Advance diet as tolerated, encourage p.o. intake. Antiemetics ordered as needed. ?No electrolyte abnormalities noted, BUN slightly elevated 31, creatinine 1.2. Serial troponins negative. TSH in June within normal limits. No leukocytosis, no anemia. ?CBC, CMP, magnesium, lipid panel ordered for the a.m. #Fatigue #Chest discomfort ? Patient states he has had increased workload, working upwards of 80 hours/week. States that he has been more tired than normal. Patient had CT scan in 2018 which showed granulomas that should be followed within 6 months, patient did not have repeat imaging. Will order chest CT with contrast. #Hypertension #CAD ?Patient states that he has a history of CAD with 1 stent placed. Currently takes losartan/HCTZ daily and aspirin 81 mg daily, continue medications. Full code Ambulate as tolerated Regular diet VTE?Lovenox
[2025-01-24 13:30] LABS: Troponin I < 0.01 ng/ml (0.00-0.034)
--- NOTE | 2025-01-24 13:40 | HMH.PHAINT1 ---
Pharmacy Intervention Comments: MEDICATION RECONCILIATION COMPLETED ON PATIENT USING EXTERNAL FILL HISTORY FROM PHARMACY AND LIST FROM PCP OFFICE. -FRACISCO MOODY, KODAKD
--- NOTE | 2025-01-24 14:01 | PC.NURSE ---
arrived by w/c from (x-ray) ED
[2025-01-24 14:15] LABS: Hemoglobin A1C 5.7 % (4.0-6.0)
--- NOTE | 2025-01-24 16:54 | PC.NURSE ---
new admit this shift. no complaints of pain. ambulates independently. tolerating regular diet well. no n/v. family at bedside. call light within reach.
[2025-01-24 17:15] LABS: Troponin I < 0.01 ng/ml (0.00-0.034)
[2025-01-24] MEDS: ACETAMINOPHEN 325MG TAB 650 MG PO (22:08)
[2025-01-24] MEDS: MELATONIN 5MG TABLET 5 MG PO (22:08)
[2025-01-25] VITALS: BP 124/74; PULSE 77; RESP 12; TEMP 36.5; O2SAT 97
[2025-01-25 04:00] VITALS: BP 128/88; PULSE 72; RESP 12; TEMP 37; O2SAT 97
[2025-01-25 05:41] LABS: Hematocrit 41.6 % (42.0-52.0); Hemoglobin 13.8 g/dL (14.1-18.0); Immature Granulocytes % 0.3 %; Mean Corpuscular HGB Conc 33.2 g/dL (31.8-35.4); Mean Corpuscular Hemoglobin 29.1 pg (27.0-31.2); Mean Corpuscular Volume 87.6 fl (80-94); Nucleated Red Blood Cells % 0 %; Platelet Count 168 K/mm3 (142-424); Red Blood Count 4.75 M/mm3 (4.60-6.20); Red Cell Distribution Width-SD 43.0 fL; White Blood Count 7.2 K/mm3 (4.8-10.8)
[2025-01-25 05:50] LABS: Alanine Aminotransferase 33 U/L (12-78); Albumin Level 4.0 g/dl (3.5-5.0); Albumin/Globulin Ratio 1.5 (1.1-1.8); Alkaline Phosphatase 72 U/L (38-126); Anion Gap 11.4 mEq/L (5-15); Aspartate Amino Transferase 27 U/L (17-59); Bilirubin,Total 0.4 mg/dl (0.2-1.3); Blood Urea Nitrogen 31 mg/dl (9-20); Calcium 8.5 mg/dl (8.4-10.2); Carbon Dioxide 27 mmol/L (22.0-30.0); Chloride 105 mmol/L (98-107); Creatinine Clearance Estimated 86 mL/min (50-200); Creatinine,Serum 1.20 mg/dl (0.66-1.25); Estimated Glomerular Filt Rate 62 ml/min (>60); GFR (African American) 75 ML/MIN (>60); Globulin 2.6 g/dL (1.3-3.2); Glucose 105 mg/dl (74-100); Magnesium 2.0 mg/dl (1.6-2.3); Potassium 4.4 mmoL/L (3.5-5.1); Sodium 139 mmol/L (136-145); Total Protein,Serum 6.6 g/dl (6.3-8.2)
[2025-01-25 08:00] VITALS: BP 151/78; PULSE 64; RESP 18; TEMP 36.6; O2SAT 97
--- NOTE | 2025-01-25 08:08 | CT_ITS ---
FINAL REPORT TECHNIQUE: Axial CT with contrast with 3-D MIP reconstruction This study was performed with techniques to keep radiation doses as low as reasonably achievable, (ALARA). Individualized dose reduction techniques using automated exposure control or adjustment of mA and/or kV according to the patient's size were employed. CLINICAL HISTORY: chest pain, shortness of breath COMPARISON: 07/26/2017 FINDINGS: Pulmonary vessels enhance in normal fashion without evidence of embolism. Thoracic aorta shows no dissection or aneurysm. There is a right lower lobe nodule, 4 mm in size, best seen on image #43 of series 2, which is stable. There is a 3 mm right upper lobe nodule, best seen on image #36 of series 2, also stable. There is no significant pleural effusion. There is no significant pericardial effusion. There is no infiltrate to suggest pneumonia. No mediastinal or hilar adenopathy is present. IMPRESSION: 1. Stable pulmonary nodules, unchanged since the prior chest CT of 2017. 2. No acute intrathoracic abnormality identified. Reviewed, Interpreted and Dictated by Kimani Villegas MD Transcribed by Sharri Romo Authenticated and [facility]
[2025-01-25] MEDS: ASPIRIN 81MG CHEWABLE TABLET 81 MG PO (08:17)
[2025-01-25] MEDS: IRBESARTAN 75MG TABLET 75 MG PO (08:18)
[2025-01-25] MEDS: NICOTINE 21MG/24HR PATCH 21 MG TD (08:39)
[2025-01-25] MEDS: IOPAMIDOL-370 (76%);100ML BOTTLE 75 ML IV (08:50)
[2025-01-25] MEDS: SODIUM CHLORIDE 0.9% 10ML SYR (RAD ONLY) 10 ML IV (08:50)
[2025-01-25 08:59] LABS: Cholesterol 214 mg/dl (140-200); HDL Cholesterol 28 mg/dl (40-60); Triglycerides 394 mg/dl (30-150)
--- NOTE | 2025-01-25 09:47 | P.DS_ITS ---
<Statement entered by Leonides Blankenship MD - 01/28/25 12:58> Agree with plan of care as outlined by the HEATING REPAIR TECHNICIAN. General Admission date:: 01/24/25 Discharge date: 01/25/25 HPI HPI HPI: Mr. Leone is a 60-year-old male who presented to his PCP office today with complaints of intermittent and at times continuous, sharp abdominal pain, nausea, increased fatigue, left chest pain, night sweats. 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 He denies shortness of breath, vomiting, diarrhea, edema, fever, known sick contacts. He does state that he has a cardiac history with 1 stent placed in 2018. He denies alcohol, drug, tobacco use. Emergency department workup was significant for elevated triglycerides at 242, and elevated lipase at 1229. Patient states that he has had his gallbladder removed. Denies use of any GLP-1 medications. [address] scan showed no acute findings, chest x-ray unremarkable. Right upper quadrant ultrasound shows absent gallbladder, no ductal dilation is present, fatty infiltration of the liver. Patient has no focal tenderness on exam. Vital signs are stable. Patient tolerating p.o. diet without issues at this time. Hospital Course Hospital Course Hospital Course: Mr. Leone is a 60-year-old male who presented to his PCP office today with complaints of intermittent and at times continuous, sharp abdominal pain, nausea, increased fatigue, left chest pain, night sweats. 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 He denies shortness of breath, vomiting, diarrhea, edema, fever, known sick contacts. He does state that he has a cardiac history with 1 stent placed in 2018. He denies alcohol, drug, tobacco use. Emergency department workup was significant for elevated triglycerides at 242, and elevated lipase at 1229. Patient states that he has had his gallbladder removed. Denies use of any GLP-1 [address]. [address] scan showed no acute findings, chest x-ray unremarkable. Lab work unremarkable, serial troponins negative, kidney function within normal limits, no anemia, no leukocytosis. Right upper quadrant ultrasound shows absent gallbladder, no ductal dilation is present, fatty infiltration of the liver. Patient has no focal tenderness on exam. Vital signs are stable. Patient tolerating p.o. diet without issues at this time. Hospital medicine was consulted for admission due to elevated lipase, I agreed to admit the patient. Plan of care as follows: #Pancreatitis #Elevated lipase ?Assessment this morning reveals patient feels very well. Tolerating p.o. diet without any issues. Denies abdominal pain the patient and throughout the night. Patient took 1 dose of Tylenol for pain yesterday evening, no antibiotics needed. Repeat lab work day of discharge is unremarkable. #Fatigue #Chest discomfort ?Chest CT shows stable pulmonary nodules unchanged since prior CT in 2018, no acute intrathoracic abnormalities identified. Patient epigastric or chest pain. Discussed following up with cardiology, he sees [facility] cardiology but has not seen them in approximately 1 year. He is agreeable to follow-up will make appointment prior to discharge. Patient has remained hemodynamically stable during admission. #Hypertension #CAD #Hyperlipidemia/hypertriglyceridemia ?Patient states that he has a history of CAD with 1 stent placed. Currently takes losartan/HCTZ daily and aspirin 81 mg daily, continue medications at [facility]. ?Lipid panel shows elevated cholesterol and hyper triglyceridemia, patient states he used to take a statin medication but it was discontinued at some point. Agreeable to starting atorvastatin 40 mg daily. Patient will follow-up with cardiology in 1 week. #Tobacco use disorder: Patient is a daily smoker, discussed smoking cessation with patient. Total time spent on discharge 32 minutes in counseling, documentation, chart review, and direct care with patient. Exam Data for Last 24 hours Vital signs and Labs for Last 24 Hours: Temp Pulse Resp BP Pulse Ox O2 Del Method 97.9 F 64 18 151/78 H 97 Room Air 01/25/25 08:00 01/25/25 08:00 01/25/25 08:00 01/25/25 08:00 01/25/25 08:00 01/25/25 09:00 Laboratory Results - last 24 hr 01/24/25 10:00: WBC 7.4, RBC 5.09, Hgb 14.8, Hct 44.3, MCV 87.0, MCH 29.1, MCHC 33.4, RDW 13.2, Plt Count 181, MPV 11.2 H, Neut % (Auto) 61.3, Lymph % (Auto) 27.3, [place] % (Auto) 8.2, Eos % (Auto) 2.4, Baso % (Auto) 0.4, Neut # (Auto) 4.5, Lymph # (Auto) 2.0, [place] # (Auto) 0.6, Eos # (Auto) 0.2, Baso # (Auto) 0.0, Sodium 138, Potassium 4.4, Chloride 101, Carbon Dioxide 31 H, Anion Gap 10.4, BUN 27 H, Creatinine 1.00, Estimated Creat Clear 110, Estimated GFR 76, Est GFR ( Amer) 93, Glucose 104 H, Hemoglobin A1c 5.7, Calcium 9.0, Magnesium 2.2, Total Bilirubin 0.5, AST 30, ALT 38, Alkaline Phosphatase 71, Troponin I < 0.01, Total Protein 7.7, Albumin 4.3, Globulin 3.4 H, Albumin/Globulin Ratio 1.3, Triglycerides 242 H, Lipase 1229 H, HCV Ab ARUNA w/Rflx PCR Qn Negative, HIV Ag/Ab Combo Qual Negative 01/24/25 10:40: SARS-CoV-2 (PCR) Not detected, Influenza A Untype (PCR) Not detected, Influenza Type B (PCR) Not detected 01/24/25 12:40: Troponin I < 0.01 01/24/25 16:15: Troponin I < 0.01 01/25/25 04:52: WBC 7.2, RBC 4.75, Hgb 13.8 L, Hct 41.6 L, MCV 87.6, MCH 29.1, MCHC 33.2, RDW 13.3, Plt Count 168, MPV 11.9 H, Neut % (Auto) 61.0, Lymph % (Auto) 27.2, [place] % (Auto) 8.3, Eos % (Auto) 2.8, Baso % (Auto) 0.4, Neut # (Auto) 4.4, Lymph # (Auto) 2.0, [place] # (Auto) 0.6, Eos # (Auto) 0.2, Baso # (Auto) 0.0, Sodium 139, Potassium 4.4, Chloride 105, Carbon Dioxide 27, Anion Gap 11.4, BUN 31 H, Creatinine 1.20, Estimated Creat Clear 86, Estimated GFR 62, Est GFR ( Amer) 75, Glucose 105 H, Calcium 8.5, Magnesium 2.0, Total Bilirubin 0.4, AST 27, ALT 33, Alkaline Phosphatase 72, Total Protein 6.6, Albumin 4.0, Globulin 2.6, Albumin/Globulin Ratio 1.5, Triglycerides 394 H, Cholesterol 214 H, LDL Cholesterol Direct 99.94 L, VLDL Cholesterol 79 H, HDL Cholesterol 28 L, Cholesterol/HDL Ratio 7.6 H I & O for Last 24 hours: Intake & Output 01/22/25 01/23/25 01/24/25 01/25/25 23:59 23:59 23:59 23:59 Intake Total 320 / 560 660 / 660 Balance 320 / 560 660 / 660 Weight 92.108 kg 92.108 kg Constitutional Constitutional: no acute distress, obese and cooperative *Routine HEENT Exam Head: Present normocephalic Eye: Present EOMI and PERRL ENT: Present mucous membranes moist *Routine Neck Exam Neck: Present supple and full ROM; Absent lymphadenopathy *Routine Respiratory Exam Respiratory: Present CTA bilaterally and normal respiratory effort; Absent wheezes or crackles *Routine Cardiovascular Exam Cardiovascular: Present RRR, Normal S1 and Normal S2; Absent murmur *Routine Abdominal Exam Abdominal: Present soft and normoactive bowel sounds; Absent tenderness or distended *Routine Rectal Exam Patient deferred: visual exam *Routine Exam Patient deferred: penile exam *Routine Extremities Exam Extremities: Present full ROM and pulses intact; Absent cyanosis, clubbing or edema *Routine Skin Exam Skin: Present intact, dry and warm; Absent erythema or rash *Routine Neurological Exam Neurological: Present alert, oriented X3 and normal speech Results Data Completed and Pending Labs on day of discharge: Labs from last 24 hours 01/25/25 01/24/25 01/24/25 04:52 16:15 12:40 WBC 7.2 RBC 4.75 Hgb 13.8 L Hct 41.6 L MCV 87.6 MCH 29.1 MCHC 33.2 RDW 13.3 Plt Count 168 MPV 11.9 H Neut % (Auto) 61.0 Lymph % (Auto) 27.2 [place] % (Auto) 8.3 Eos % (Auto) 2.8 Baso % (Auto) 0.4 Neut # (Auto) 4.4 Lymph # (Auto) 2.0 [place] # (Auto) 0.6 Eos # (Auto) 0.2 Baso # (Auto) 0.0 Sodium 139 Potassium 4.4 Chloride 105 Carbon Dioxide 27 Anion Gap 11.4 BUN 31 H Creatinine 1.20 Estimated Creat Clear 86 Estimated GFR 62 Est GFR ( Amer) 75 Glucose 105 H Hemoglobin A1c Calcium 8.5 Magnesium 2.0 Total Bilirubin 0.4 AST 27 ALT 33 Alkaline Phosphatase 72 Troponin I < 0.01 < 0.01 Total Protein 6.6 Albumin 4.0 Globulin 2.6 Albumin/Globulin Ratio 1.5 Triglycerides 394 H Cholesterol 214 H LDL Cholesterol Direct 99.94 L VLDL Cholesterol 79 H HDL Cholesterol 28 L Cholesterol/HDL Ratio 7.6 H Lipase SARS-CoV-2 (PCR) HCV Ab ARUNA w/Rflx PCR Qn HIV Ag/Ab Combo Qual Influenza A Untype (PCR) Influenza Type B (PCR) 01/24/25 01/24/25 10:40 10:00 WBC 7.4 RBC 5.09 Hgb 14.8 Hct 44.3 MCV 87.0 MCH 29.1 MCHC 33.4 RDW 13.2 Plt Count 181 MPV 11.2 H Neut % (Auto) 61.3 Lymph % (Auto) 27.3 [place] % (Auto) 8.2 Eos % (Auto) 2.4 Baso % (Auto) 0.4 Neut # (Auto) 4.5 Lymph # (Auto) 2.0 [place] # (Auto) 0.6 Eos # (Auto) 0.2 Baso # (Auto) 0.0 Sodium 138 Potassium 4.4 Chloride 101 Carbon Dioxide 31 H Anion Gap 10.4 BUN 27 H Creatinine 1.00 Estimated Creat Clear 110 Estimated GFR 76 Est GFR ( Amer) 93 Glucose 104 H Hemoglobin A1c 5.7 Calcium 9.0 Magnesium 2.2 Total Bilirubin 0.5 AST 30 ALT 38 Alkaline Phosphatase 71 Troponin I < 0.01 Total Protein 7.7 Albumin 4.3 Globulin 3.4 H Albumin/Globulin Ratio 1.3 Triglycerides 242 H Cholesterol LDL Cholesterol Direct VLDL Cholesterol HDL Cholesterol Cholesterol/HDL Ratio Lipase 1229 H SARS-CoV-2 (PCR) Not detected HCV Ab ARUNA w/Rflx PCR Qn Negative HIV Ag/Ab Combo Qual Negative Influenza A Untype (PCR) Not detected Influenza Type B (PCR) Not detected DS: Diagnosis Discharge Diagnosis (1) Pancreatitis: Status: Acute Code(s): K85.90 - Acute pancreatitis without necrosis or infection, unspecified (2) Fatigue: Status: Acute Code(s): R53.83 - Other fatigue (3) Hypertension: Status: Acute Code(s): I10 - Essential (primary) hypertension Qualifiers: Hypertension type: essential hypertension Qualified Code(s): I10 - Essential (primary) hypertension (4) Obesity (BMI 30.0-34.9): Status: Acute Code(s): E66.811 - Obesity, class 1 (5) CAD (coronary artery disease): Status: Chronic Code(s): I25.10 - Atherosclerotic heart disease of [place] coronary artery without angina pectoris Qualifiers: Associated angina: without angina Coronary Disease-Associated Artery/Lesion type: [place] artery [place] vs. transplanted heart: [place] heart Qualified Code(s): I25.10 - Atherosclerotic heart disease of [place] coronary artery without angina pectoris (6) HLD (hyperlipidemia): Status: Acute Code(s): E78.5 - Hyperlipidemia, unspecified Qualifiers: Hyperlipidemia type: unspecified Qualified Code(s): E78.5 - Hyperlipidemia, unspecified Problem details: Deep as on atorvastatin in the past, as his TG is high and his HDL is low. However this was stopped by his shuffle board operator for an unknown reason. We will recheck his lipid panel and go from there. Meds Home Medications and Allergies Home Medications ?Medication ?Instructions ?Recorded ?Confirmed ?Type aspirin 81 mg chewable tablet 81 mg PO DAILY 03/29/22 01/24/25 History cyanocobalamin (vitamin B-12) 5,000 mcg PO DAILY 10/2901/24/25 History 5,000 mcg capsule multivitamin 1 tab PO DAILY 10/29/2401/06 History omega 3-rxm-sbd-fish oil 1,000 mg 1 cap PO DAILY 10/2901/24/25 History (120 mg-180 mg) capsule (Fish Oil) losartan 50 mg-hydrochlorothiazide 1 tab PO DAILY 01/0601/24/25 History 12.5 mg tablet atorvastatin 40 mg tablet (Lipitor) 40 mg PO HS #30 ta bs 01/25/25 Rx New Prescriptions to Start Prescriptions: atorvastatin [Lipitor] Livia Ramos Allergies Allergy/AdvReac Type Severity Reaction Status Date / Time amoxicillin Allergy Mild Diarrhea Verified 01/24/25 09:17 lisinopril Allergy Mild dry cough Verified 01/24/25 09:17 Opioids - Morphine Analogues AdvReac Intermediate Confusion Verified 01/24/25 09:17 Discharge Plan Disposition Patient Disposition: Home, Self-Care Condition: Good Follow up Plan Follow up with: Luis Ramos PA [Physician Concrete Boom Pump Operator, Cardiology] - 02/01/25 9:45 am Marisela Carballo APRN [Nurse Practitioner, Family Practice] - 01/31/25 2:00 pm Prescriptions/Medication Reconciliation: New atorvastatin [Lipitor] 40 mg tablet 40 mg PO HS Qty: 30 0RF Continued multivitamin Tablet 1 tab PO DAILY omega 9-fjh-hdw-fish oil [Fish Oil] 1,000 (120-180) mg capsule 1 cap PO DAILY cyanocobalamin (vitamin B-12) 5,000 mcg capsule 5,000 mcg PO DAILY losartan-hydrochlorothiazide 50-12.5 mg tablet 1 tab PO DAILY aspirin 81 mg tablet,chewable 81 mg PO DAILY Problem Reconciliation Problems Reviewed?: Yes Patient Discharge Instructions ACTIVITY: Continue current activity and Ambulate as tolerated DIET: cardiac Patient Instructions: Pancreatitis (Alternative Therapy), DI for Pancreatitis Print Language: Thai Providers Primary Care Provider: Terese Montanez Admit Provider: Lucio Turner Attending Provider: Lucio Turner
--- NOTE | 2025-01-26 10:29 | SW/DCPLANNER ---
Spoke with patient on the phone. Patient stated that he is doing good. Patient stated that he is aware of his upcoming appointments. Patient stated that he was able to get his new medicine picked up. Patient stated that he has no concerns or questions at this time. Demi Vargas
== END 2025-01-25 11:46 | disposition home or self-care (01) ==
LOC: ER 13:19 → 2ND 13:35
PROVIDERS: Nurse Practitioner; Admitting Provider Internal Medicine Adolescent Medicine; Emergency Provider Student in an Organized Health Care Education/Training Program; PCP Nurse Practitioner Family; Visit Provider Internal Medicine Adolescent Medicine
DX: K85.90 Acute pancreatitis without necrosis or infection, unspecified (principal); R74.8 Abnormal levels of other serum enzymes; I10 Essential (primary) hypertension; I25.10 Atherosclerotic heart disease of native coronary artery without angina pectoris; E78.5 Hyperlipidemia, unspecified; E78.1 Pure hyperglyceridemia; R91.8 Other nonspecific abnormal finding of lung field; E66.811 Obesity, class 1; K76.0 Fatty (change of) liver, not elsewhere classified; F17.210 Nicotine dependence, cigarettes, uncomplicated; R00.1 Bradycardia, unspecified; I21.9 Acute myocardial infarction, unspecified; Z95.5 Presence of coronary angioplasty implant and graft; Z88.0 Allergy status to penicillin; Z88.8 Allergy status to other drugs, medicaments and biological substances; Z88.5 Allergy status to narcotic agent; Z90.49 Acquired absence of other specified parts of digestive tract; Z68.30 Body mass index [BMI] 30.0-30.9, adult; Z79.82 Long term (current) use of aspirin; Z79.899 Other long term (current) drug therapy
CPT/HCPCS: 36415; 71045; 71260; 74177; 76705; 80053; 80061; 83036; 83690; 83735; 84478; 84484; 85025; 86803; 87389; 87636; 93005; 96372; 96374; 96375; 99285; G0378; J0131; J1308; J1650; J1885; J2405; Q9967

== ENCOUNTER 2025-02-28 09:19 | Outpatient (CLI) | payer BC, SELFPAY ==
[2025-02-28 14:34] LABS: Cholesterol 155 mg/dl (140-200); HDL Cholesterol 41 mg/dl (40-60); Lipase 230 U/L (23-300); Triglycerides 168 mg/dl (30-150)
--- OUTSIDE RECORDS SUMMARY | 2025-03-01 10:02 | XMS_ITS | Clinical Summary ---
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
== END 2025-02-28 23:59 ==
LOC: LAB.DROPOF 03-01 09:58
PROVIDERS: PCP Nurse Practitioner Family; Visit Provider Nurse Practitioner Family
DX: K85.90 Acute pancreatitis without necrosis or infection, unspecified (principal); R53.83 Other fatigue; E66.811 Obesity, class 1; I10 Essential (primary) hypertension; E78.5 Hyperlipidemia, unspecified
CPT/HCPCS: 80061; 83690